=== PATIENT | male | born 1955 | race Caucasian/White ===

== ENCOUNTER → 2023-10-13 | Outpatient (CLI) | payer MEDICARE, OTHER, SELFPAY ==
[2023-10-13 16:56] LABS: Absolute Lymphocyte Count 2.93 X10^3/uL (0.83-4.51); Absolute Neutrophil Count 6.6 X10^3/uL (2.0-7.7); Basophil# 0.06 X10^3/uL; Basophil% 0.6 % (0-1); Eosinophil# 0.21 X10^3/uL; Hematocrit 49.8 % (40-54); Lymphocyte # 2.93 X10^3/ul (0.83-4.51); Lymphocyte % 27.3 % (19-41); Mean Corp Hgb Conc 32.1 g/dL (32-36); Mean Corpuscular Hgb 30.4 pg (27.0-32.0); Mean Corpuscular Volume 94.5 fL (80-94); Mean Platelet Vol. 11.2 fl (6.2-12.0); Monocyte# 0.88 X10^3/uL; Monocyte% 8.2 % (0-10); NRBC Flagged by Analyzer 0 % (0-5); Neutrophil # 6.61 X10^3/uL (2.7-7.7); Neutrophil % 61.5 % (47-70); Platelet Count 303 K/mm3 (150-450); RBC Distribution Width CV 13.2 % (11.6-14.6); Red Blood Count 5.27 M/mm3 (4.6-6.2); White Blood Count 10.7 K/mm3 (4.4-11.0)
[2023-10-13 17:19] LABS: ALB/GLOB Ratio 1.1 RATIO (0.9-2.4); AST(SGOT) 14 U/L (15-37); Alanine Aminotransfer ALT/SGPT 26 U/L (16-61); Albumin, Serum 3.9 g/dL (3.2-5.0); Alkaline Phosphatase 84 U/L (45-117); Anion Gap 3 (5-15); BUN 16 mg/dL (7-18); BUN/Creat Ratio 20.2 RATIO (10-20); Calcium,Total 9.3 mg/dL (8.5-10.1); Chloride 110 mmol/L (98-107); Cholesterol 139 mg/dL (200); Creatinine, Serum 0.79 mg/dL (0.70-1.30); EST Glomerular Filtration Rate 103 mL/min (>60); Est Glom Filt Rate - Afr Amer 125 mL/min (>60); Globulin 3.5 g/dL (2.2-4.2); Glucose 93 mg/dL (74-106); High Density Lipoprotein 52 mg/dL; PSA,Total - Annual Screen 0.75 ng/mL (0.00-4.00); Potassium 4.5 mmol/L (3.5-5.1); Protein, Total 7.4 g/dL (6.4-8.2); Sodium Level 142 mmol/L (136-145); Thyroid Stim Hormone (TSH) 3.39 uIU/mL (0.358-3.74); Triglycerides 138 mg/dL; Very Low Density Lipoprotein 28 mg/dL (5-40)
== END | disposition home or self-care (01) ==
LOC: BIMLAB 15:14
PROVIDERS: PCP Internal Medicine; Referring Provider Internal Medicine; Visit Provider Internal Medicine
DX: E78.2 Mixed hyperlipidemia (principal); I25.10 Atherosclerotic heart disease of native coronary artery without angina pectoris; Z12.5 Encounter for screening for malignant neoplasm of prostate
CPT/HCPCS: 36415; 80053; 80061; 84153; 84443; 85025; G0103

== ENCOUNTER → 2023-10-25 | Outpatient (CLI) | payer MEDICARE, OTHER, SELFPAY ==
--- NOTE | 2023-10-25 08:53 | AAAS_ITS ---
Reason For Study: AAA Screening Aorta Measurements Aorta Doppler Measurements Proximal aorta measures2.07 x 2.12cm. in cross- Peak systolic flow velocities within the proximal sectional axis. aorta measure 104.9 cm/sec. Proximal aorta measures2.12cm. in longitudinal Peak systolic flow velocities within the mid aorta axis. measure 115.8 cm/sec. Mid aorta measures1.73 x 1.73cm. in cross- Peak systolic flow velocities within the distal sectional axis. aorta measure 152.7 cm/sec. Mid aorta measures1.71cm. in longitudinal axis. Distal aorta measures2.08 x 2.08cm. in cross- sectional axis. Distal aorta measures2.08cm. in longitudinal axis. Left Iliac Artery Left iliac artery measures 1.20 x 1.20 cm. in the cross-sectional axis. Left iliac artery measures 1.19 cm. in the longitudinal axis. Peak systolic velocity in the left iliac artery measures 127.1 cm/sec. Right Iliac Artery Right iliac artery measures 0.86 x 0.90 cm. in the cross-sectional axis. Right iliac artery measures 0.89 cm. in the longitudinal axis. Peak systolic velocity in the right iliac artery measures 152.6 cm/sec. Procedure Aorta IVC Iliac vasculature or bypass grafts [id number]. Exam performed in department. VL/AAA Screening Interpretation Summary Aorta patent, normal caliber Bilateral iliac arteries patent, normal caliber Ordering Physician: Aisha Saavedra Referring Physician: Aisha Saavedra Performed By: Cecilia Corral RVT
== END | disposition home or self-care (01) ==
LOC: CVS 08:52
PROVIDERS: PCP Internal Medicine; Referring Provider Internal Medicine; Visit Provider Internal Medicine
DX: Z13.6 Encounter for screening for cardiovascular disorders (principal)
CPT/HCPCS: 76706

== ENCOUNTER → 2023-11-09 | Outpatient (CLI) | payer MEDICARE, OTHER, SELFPAY ==
[2023-11-16 11:09] LABS: Testosterone, % Free 1.94 % (1.50-4.20); Testosterone, Free 12.92 ng/dL (5.00-21.00); Testosterone, Total 666 ng/dL (264-916)
== END | disposition home or self-care (01) ==
LOC: BIMLAB 09:58
PROVIDERS: PCP Internal Medicine; Referring Provider Internal Medicine; Visit Provider Internal Medicine
DX: N52.9 Male erectile dysfunction, unspecified (principal)
CPT/HCPCS: 36415; 84402; 84403

== ENCOUNTER 2023-11-16 08:30 | Outpatient (RCR) | payer MEDICARE, OTHER, SELFPAY ==
--- NOTE | 2023-09-07 12:50 | HP.OTEVAL ---
Patient's Visit Information Visit Information Visit Information: DREA DELUCA is a 67 year old M, referred to Occupational Therapy by Dr. Parag Richards MD, with a diagnosis of central slip tendon injury. Date of Evaluation: 09/07/23 Occupational Therapist: Swati Rice, SONY/Rebeca, CHT Subjective Subjective: This 67 year old male was seen for OT eval with dx of left central slip injury. pt states he had a fall Aug.20 while going up stairs pt states he thought his finger would be fine- went to [facility]. and was rec'd to see Dr. Richards. pt starts he was put is splint and and was told to keep finger straight- pt states he is tolerating splint good. pt states he is left handed just recent move to [place] in Apr. ROM MP: right LF 0/85 PIP: right LF 0/90 DIP: right LF 0/65 ROM Comments: pt states he does everything to keep finger flat- left LF Not tested to keep with recovery guidelines PIP is looking good in splint- but therapist noted DIP hyper-ext. Strength Host And Hostess: right 130# left NT Lateral Pinch: right 20# left NT Tripod Pinch: right 16# left NT Sensation Sensation Comments: denies Quick DASH-Disab of Arm,Shoulder& Hand Quick DASH Score: 4.5450 Goals Goal:100% adherence to protocol: Yes Comment: central slip protocol Goal:Daily scar massage when approriate: Yes Goal:ROM equal to unaffected hand: Yes Goal:Host And Hostess/Pinch strength at least 75% of unaffected hand: Yes Rehabilitation General Assessment: Pt demo with positive central slip tendon involvement: demo need for therapy services to provide skilled services 1x a week for 8 weeks for pt to allow healing of tendon and regain pts functional use of left dominate hand for ADLs and IADL's. Today therapist ed. pt on injury- and POC and the need to keep PIP in full ext. if changing orthosis. pt demo understanding- Therapist noted with pt in gutter splint- the DIP was in hyper-ext- therapist ming. custom orthosis placing styles over DIP for slight flexion to prevent deformity- - pt ed. to allow slight DIP flex . and NO PIP Flexion- pt demo understanding and agree to POC. Rehabilitation Potential: Good Anticipated Interventions Anticipated Interventions: A/AAROM/PROM, Strengthening, Triggerpoint Release, Modalities, Orthoses and Home Program Visit Plan Frequency: Every Other Week Duration: 2 Months General Plan: orthosis for 6 weeks will monitor skin integrity then transition to graded flexion until full flexion at week 8-10 as to not compromise extensor tendon healing. TEXT: Thank you for the opportunity to evaluate your patient. For Medicare and Medicare HMO plans, please review the plan of care and approve it. It will need to be FAXED BACK to us at [phone] for Medicare purposes. Please let me know if there are questions or concerns regarding this plan of care. Physician Signature: Date:
== END 2023-11-16 19:00 | disposition home or self-care (01) ==
LOC: OT 08:30
PROVIDERS: Referring Provider Orthopaedic Surgery Sports Medicine; Visit Provider Orthopaedic Surgery Sports Medicine
DX: S56.41 Strain of extensor muscle, fascia and tendon of other and unspecified finger at forearm level (principal)
CPT/HCPCS: 97110; 97166; 97530

== ENCOUNTER → 2025-01-30 | Outpatient (CLI) | payer MEDICARE, OTHER, SELFPAY ==
[2025-01-30 12:36] LABS: Absolute Lymphocyte Count 2.22 X10^3/uL (0.83-4.51); Absolute Neutrophil Count 4.9 X10^3/uL (2.0-7.7); Basophil# 0.04 X10^3/uL; Basophil% 0.5 % (0-1); Eosinophil# 0.16 X10^3/uL; Hematocrit 47.6 % (40-54); Hemoglobin 15.9 g/dL (13.0-16.5); Lymphocyte # 2.22 X10^3/ul (0.83-4.51); Lymphocyte % 27.1 % (19-41); Mean Corp Hgb Conc 33.4 g/dL (32-36); Mean Corpuscular Hgb 31.5 pg (27.0-32.0); Mean Corpuscular Volume 94.3 fL (80-94); Mean Platelet Vol. 11.3 fl (6.2-12.0); Monocyte# 0.86 X10^3/uL; Monocyte% 10.5 % (0-10); NRBC Flagged by Analyzer 0 % (0-5); Neutrophil # 4.89 X10^3/uL (2.7-7.7); Neutrophil % 59.7 % (47-70); Platelet Count 251 K/mm3 (150-450); RBC Distribution Width SD 44.9 fl (35.1-43.9); Red Blood Count 5.05 M/mm3 (4.6-6.2); White Blood Count 8.2 K/mm3 (4.4-11.0)
[2025-01-30 13:07] LABS: ALB/GLOB Ratio 1.5 RATIO (0.9-2.4); AST(SGOT) 16 U/L (<=37); Alanine Aminotransfer ALT/SGPT 13 U/L (<=46); Albumin, Serum 4.2 g/dL (3.4-4.8); Alkaline Phosphatase 95 U/L (40-129); Anion Gap 9 (5-15); BUN 17 mg/dL (4-19); BUN/Creat Ratio 21.1 RATIO (10-20); Calcium,Total 9.7 mg/dL (7.6-11.0); Carbon Dioxide 23.8 mmol/L (21.0-32.0); Chloride 107 mmol/L (98-108); Cholesterol 133 mg/dL (<=200); Creatinine, Serum 0.81 mg/dL (0.70-1.20); EST Glomerular Filtration Rate 96 (>60); Globulin 2.8 g/dL (2.2-4.2); Glucose 97 mg/dL (70-99); High Density Lipoprotein 48 mg/dL; Low Density Lipoprotein Calc. 67 mg/dL; Potassium 4.5 mmol/L (3.3-5.1); Sodium Level 140 mmol/L (133-145); Total Bilirubin 0.52 mg/dL (0.00-1.30); Triglycerides 91 mg/dL; Very Low Density Lipoprotein 18 mg/dL (5-40); cholesterol:hdl ratio screen 2.79
[2025-01-30 13:40] LABS: PSA,Total- Diagnostic 0.38 ng/mL (0.00-4.00)
== END | disposition home or self-care (01) ==
LOC: BIMLAB 09:59
PROVIDERS: PCP Internal Medicine; Referring Provider Internal Medicine; Visit Provider Internal Medicine
DX: I25.10 Atherosclerotic heart disease of native coronary artery without angina pectoris (principal); F41.9 Anxiety disorder, unspecified; F32.A Depression, unspecified; N40.0 Benign prostatic hyperplasia without lower urinary tract symptoms
CPT/HCPCS: 36415; 80053; 80061; 84153; 85025

== ENCOUNTER → 2025-02-21 | Outpatient (CLI) | payer MEDICARE, OTHER, SELFPAY ==
--- NOTE | 2025-02-21 12:50 | MRI_ITS ---
PROCEDURE: BRAIN W/WO CONTRAST 02/21/2025 REASON FOR EXAM: PULSATILE TINNITUS TECHNIQUE: Brain examination performed without and with contrast with attention to the internal auditory canals.. CONTRAST: Clariscan VOLUME: 17 mL FINDINGS: There is a normal appearance to the craniocervical junction without Chiari deformity. There is no hydrocephalus or acute diffusion restriction. Brainstem and cerebellum unremarkable. No pathologic flow voids. No extra- axial fluid collections. There is no intracranial demyelination. Coronal T2 weighted images demonstrate no visible hippocampal asymmetry. Myelination is appropriate for age. Thin-section volumetric images of the skull base demonstrate symmetric fluid signal within the vestibule and cochlea. There is no evidence of labyrinthine hemorrhage. No dural sinus thrombosis. Thin-section postcontrast images through the internal auditory canals demonstrate no abnormal skull base enhancement. On postcontrast images of the brain, no definitive transverse sinus stenosis is seen. No abnormal labyrinthine, cisternal or intra canalicular enhancement. MRI/Brain W/WO Contrast IMPRESSION: No etiology for tinnitus. Reading Location: [facility]
== END | disposition home or self-care (01) ==
LOC: OPMRI 12:26
PROVIDERS: PCP Internal Medicine; Referring Provider Internal Medicine; Visit Provider Internal Medicine
DX: H93.A9 Pulsatile tinnitus, unspecified ear (principal)
CPT/HCPCS: 70553; A9575

== ENCOUNTER 2025-03-09 05:58 | Emergency (ER) | payer MEDICARE, OTHER, SELFPAY ==
[2025-03-09 05:59] VITALS: BP 132/87; PULSE 76; RESP 14; TEMP 36.4; O2SAT 99; BMI 25.2
--- NOTE | 2025-03-09 06:06 | EX.ED.DYSGE1 ---
HPI History of Present Illness Chief Complaint: Palpitations Informant: patient Narrative Narrative: Patient is a 69-year-old male with past medical history of hyperlipidemia and coronary artery disease requiring stent placement 12 years ago. He states that over the past few weeks he would have bouts of palpitations which she describes as irregular and fast. He also states that he has had a few episodes where he sweats profusely and has bouts of nausea and vomiting. He reports the most recent bout of diaphoresis and nausea and vomiting was roughly 1 week ago after mowing the yard. He states there was no chest pain associated with it but the symptoms concerned him for cardiovascular disease. He states he has an appointment set up with the private branch exchange service advisor Dr. Arceo next week. He states however that 4 times throughout the night starting from approximately 9 or 10 PM with the last 1 being around 5 AM his watch went off alerting him to palpitations concerning for A-fib. He states that it did feel fast and irregular but it only lasted for a few minutes and resolved. He denies any history of excessive stimulant use or illicit drug use. He states as his symptoms have been recurrent throughout the night he presents for evaluation [facility] Medical History Mixed hyperlipidemia Hx of myocardial infarction Atherosclerosis of coronary artery of [place] heart without angina pectoris Skin cancer Heart disease Hearing problem Bone fracture Home Medications Medication Instructions Recorded Last Taken Type aspirin 81 mg tablet,delayed 81 mg PO DAILY 08/31/23 Unknown History release nitroglycerin 0.3 mg sublingual 0.3 mg sublingual Q5M PRN chest 05/28/24 Unknown Rx tablet pain #30 tabs atorvastatin 40 mg tablet 40 mg PO DAILY #90 tabs 08/23/24 Unknown Rx tamsulosin 0.4 mg capsule (Flomax) 0.4 mg PO QHS #30 caps 01/30/25 Unknown Rx tadalafil 5 mg tablet (Cialis) 5 mg PO DAILY #90 tabs 02/11/25 Unknown Rx carvedilol 6.25 mg tablet 6.25 mg PO BID #180 tabs 03/05/25 Unknown Rx azithromycin 250 mg tablet See Rx Instructions PO .COMPLEX #6 03/09/25 Unknown Rx (Zithromax Z-Farzad) tabs cefdinir 300 mg capsule 300 mg PO BID 7 days #14 caps 03/09/25 Unknown Rx Allergy/AdvReac Type Severity Reaction Status Date / Time naproxen (From Aleve) AdvReac palpitation Verified 03/09/25 05:59 s Family History (Updated 02/25/25 @ 10:50 by Angeles Martinez RN) Father Cancer, Onset Age: 80 leukemia Hypertension Aunt CAD (coronary artery disease) Uncle CAD (coronary artery disease) Sister Hypertension Surgical History History of banding of hemorrhoid History of ankle surgery H/O rhinoplasty H/O heart artery stent Social History (Updated 01/30/25 @ 09:[address] Aisha Saavedra MD) household members: significant other housing: house current occupational status: retired current occupation: worked in [email or web address] Smoking Status: Former smoker quit date: 08/15/15 pack-years: 40 Electronic Cigarette Use: not used alcohol intake: current alcohol intake frequency: a few times a month Alcohol type: hard liquor substance use type: marijuana what type of physical activity do you participate in: walking seatbelt use: always do you feel safe at home: Yes ROS ROS ED Constitutional Constitutional ED: Reports sweats; Denies chills or fever(s) Eyes Eyes: Denies change in vision ENT ENT ED: Denies sore throat Cardiovascular Cardiovascular: Reports palpitations and racing heartbeat; Denies chest pain Respiratory/Chest Respiratory/Chest: Denies cough or dyspnea Gastrointestinal Gastrointestinal: Reports nausea and vomiting; Denies abdominal pain or diarrhea Musculoskeletal Musculoskeletal: Denies back pain Integumentary Denies rash Neurologic Neurologic: Denies headache(s) Psychiatric Psychiatric: Reports anxiety Hematologic/Lymphatic Hematologic/Lymphatic: Denies easy bleeding or easy bruising EXAM Physical Exam Const Vital Signs: 03/09/25 05:59 03/09/25 06:01 03/09/25 07:00 Temperature 97.5 F L Temperature Source Oral Pulse Rate 76 68 Respiratory Rate 14 18 Respiratory Effort Normal Non-Labored Respiratory Pattern Normal Blood Pressure 132/87 H 126/87 H Blood Pressure Mean 102 100 Pulse Ox 99 98 Oxygen Delivery Method Room Air Room Air Positive well nourished and well developed General Appearance ED: well developed; Negative for pallor HEENT HEENT Narrative: Normocephalic atraumatic Eyes PERRL and EOMs intact bilaterally General Eye ED: Negative for scleral icterus Neck supple and no JVD Chest Wall palpation of chest normal Chest Narrative: No bony deformity or subcutaneous emphysema noted Resp normal respiratory effort and clear to auscultation bilaterally Cardio regular rate and regular rhythm Rate: other Other Details: Heart is regular rate and rhythm Radial and carotid pulses are equal and symmetric GI normal to inspection, nondistended, normoactive bowel sounds, non-tender, non-distended and no masses GI Narrative: No voluntary guarding rigidity or pulsatile mass Auscultation: normoactive bowel sounds Palpation: soft Extremity normal to inspection Extremity Narrative: No asymmetric edema no pitting edema negative Homans' sign bilaterally Neuro oriented x3, CN's II-XII intact bilaterally and no sensory deficits noted Sensorium / Orientation: alert Motor Exam: strength 5/5 throughout Psych mental status grossly normal Skin no rashes or lesions noted General Skin Exam: Negative for jaundice or pallor MDM MDM MDM Narrative Medical decision making narrative: Patient arrived to the ER with stable vitals and resolution of his palpitations. He reported that his watch alerted him to the fact he was in atrial fibrillation but states he has no formal diagnosis or known history. He does have known CAD and with his report of recent diaphoresis and bouts of nausea and vomiting after physical activity and mowing the yard there was concern that he may have had a recent [place] as well. Secondary to this an EKG was obtained which revealed no obvious signs of ischemia or dysrhythmia. A chest x-ray was obtained to rule out lung pathology such as a mass causing his symptoms. Basic blood work was also ordered to check for acute blood loss anemia acute kidney injury or electrolyte abnormality. The patient's troponin is 16 which is within normal range and under the 22 value listed in the cardiac algorithm for the 0-hour level. As the patient's symptoms of severe diaphoresis and vomiting roughly 1 week ago and the initial troponin is normal I do not feel the need for a second especially as he has no chest pain at this time. Blood work did show a leukocytosis with left shift and he also has elevation to his hemoglobin and hematocrit. There is concern this could be contraction secondary dehydration and therefore he was given 1 L of IV fluid. Despite these changes there are no clinically significant electrolyte abnormality or signs of acute kidney injury. The patient's D-dimer is also normal going against pulmonary embolus or dissection as a cause of his palpitations. Patient's chest x-ray showed changes concerning for developing pneumonia which could be the cause of his recent bouts of shortness of breath and/or palpitation. However he does not have respiratory distress or hypoxia or need for supplemental oxygen and he does not show findings concerning for sepsis. Therefore there is no need for admission to treat this. He will be placed on oral antibiotics. He understands that he still needs to follow-up with cardiology and have a potential Holter monitor study to further evaluate him for atrial fibrillation. However at this time as he is hemodynamically stable with cardiac workup showing no sign of ACS or acute dysrhythmia he is otherwise safe for discharge home History & Record Review Discussion w/independent historian: Patient Lab Data Attestation: I reviewed the patient's lab results. Labs: Laboratory Results - last 24 hr 03/09/25 06:06 WBC 13.8 H RBC 5.76 Hgb 18.5 H* Hct 54.2 H MCV 94.1 H MCH 32.1 H MCHC 34.1 RDW Std Deviation 44.2 H RDW Coeff of Emil 12.9 Plt Count 276 MPV 10.9 Immature Gran % (Auto) 0.400 Neut % (Auto) 70.7 H Lymph % (Auto) 20.0 Titus % (Auto) 8.1 Eos % (Auto) 0.4 Baso % (Auto) 0.4 Absolute Neuts (auto) 9.8 H Absolute Lymphs (auto) 2.76 Nucleated RBC % 0 D-Dimer Quant (PE/DVT) 0.34 Sodium 137 Potassium 4.0 Chloride 103 Carbon Dioxide 21.6 Anion Gap 13 BUN 10 Creatinine 0.84 Estim Creat Clear Calc 91.10 Est GFR (MDRD) Non-Af 95 BUN/Creatinine Ratio 11.4 Glucose 130 H Calcium 9.4 Magnesium 2.3 H Troponin T High Sens 16 TSH 2.680 Radiography Diagnostic Testing: Clinical Impression(s) from Imaging Studies Chest X-Ray 03/09/25 06:35 IMPRESSION: Interstitial densities in the lower lungs concerning for pulmonary edema or pneumonia. No pleural effusion or pneumothorax. Reading Location: [facility] 2 view chest x-ray is interpreted by the emergency medicine physician reveals haziness in the bilateral lobes concerning for developing infection Discharge Plan Triage Chief Complaint: Palpitations ED Provider: Rich Robbins Dx/Rx/DC Orders Clinical Impression: Palpitations, Pneumonia, CAD (coronary artery disease), Hyperlipemia Instructions: ED Palpitations, ED Pneumonia (Adult) Prescriptions: New azithromycin [Zithromax Z-Farzad] 250 mg tablet See Rx Instructions .ROUTE .COMPLEX Qty: 6 0RF Rx Instructions: For 250 mg dose pack: take 500 mg today (day 1), then 250 mg for 4 days (days 2-5) cefdinir 300 mg capsule 300 mg PO BID 7 Days Qty: 14 0RF No Action aspirin 81 mg tablet,delayed release (DR/EC) 81 mg PO DAILY tamsulosin [Flomax] 0.4 mg capsule 0.4 mg PO QHS Qty: 30 1RF nitroglycerin 0.3 mg tablet, sublingual 0.3 mg sublingual Q5M PRN (Reason: chest pain) Qty: 30 0RF Rx Instructions: do not exceed 3 doses per episode atorvastatin 40 mg tablet 40 mg PO DAILY Qty: 90 1RF tadalafil [Cialis] 5 mg tablet 5 mg PO DAILY Qty: 90 1RF carvedilol 6.25 mg tablet 6.25 mg PO BID Qty: 180 1RF Rx Instructions: must administer with a meal/food Primary Care Provider: Aisha Saavedra Referrals: Aisha Saavedra MD [Primary Care Provider] - Sanjay Arceo MD [Med Staff - Active Staff] - Activity Restrictions/Additional Instructions: Please take the antibiotics as directed to help resolve the infection/pneumonia that was seen on your x-ray. Still follow-up with cardiology as you may need a Holter monitor to truly diagnose abnormal heart rhythms such as atrial fibrillation. Return to the ER should you have any further concerns or worsening of symptoms. Print Language: Portuguese Disposition Disposition: Home, Self Care
--- NOTE | 2025-03-09 06:35 | RAD_ITS ---
PROCEDURE: CHEST PA AND LATERAL 03/09/2025 REASON FOR EXAM: PALPITATIONS TECHNIQUE: CHEST PA AND LATERAL COMPARISON: None. FINDINGS: Hardware: Monitor electrodes overlie the chest. Heart: No cardiomegaly. Mediastinum: Unremarkable. Lungs: Interstitial densities in the lower lungs concerning for pulmonary edema or pneumonia. No pleural effusion or pneumothorax. Bones: No acute bony abnormalities. RAD/Chest PA and Lateral IMPRESSION: Interstitial densities in the lower lungs concerning for pulmonary edema or pne umonia. No pleural effusion or pneumothorax. Reading Location: [id number]
[2025-03-09 06:36] LABS: Hematocrit 54.2 % (40-54); Immature Granulocytes Count 0.050 X10^3/uL (0.0-0.0); Mean Corp Hgb Conc 34.1 g/dL (32-36); Mean Corpuscular Volume 94.1 fL (80-94); Mean Platelet Vol. 10.9 fl (6.2-12.0); NRBC Flagged by Analyzer 0 % (0-5); Platelet Count 276 K/mm3 (150-450); RBC Distribution Width CV 12.9 % (11.6-14.6); RBC Distribution Width SD 44.2 fl (35.1-43.9); Red Blood Count 5.76 M/mm3 (4.6-6.2); White Blood Count 13.8 K/mm3 (4.4-11.0)
--- OUTSIDE RECORDS SUMMARY | 2025-03-09 06:37 | XMS RPT_ITS | CCD ---
Author Organization [facility] CliniSyne Care Team Providers Care Aquatic Scientist Name Role Phone JOSE Montaño Attending Provider Dr. Sanjay Arceo Attending Provider [phone] MD Parag Richards Attending Provider [phone] Dr. Aisha Saavedra Attending Provider [phone] JOSE Montaño Attending Provider Dr. Sanjay Arceo Attending Provider [phone] MD Parag Richards Attending Provider [phone] Dr. Aisha Saavedra Attending Provider [phone] Dr. Aisha Saavedra Primary Care Provider Dr. Ryan Paul Attending Provider [phone] Cristopher Wylie MD Unavailable CRISTOPHER WYLIE Attending Unavailable Dr. Aisha Saavedra MD Primary Care Provider [phone] Dr. Aisha Saavedra MD Attending Provider Dr. Aisha Saavedra MD Referring Provider Quentin Aisha Referring Unavailable Quentin, Aisha Attending Unavailable Quentin, Aisha Primary Care Unavailable [place], Aisha Referring Unavailable [place], Aisha Attending Unavailable Quentin, Aisha Primary Care Unavailable Quentin, Aisha Referring Unavailable [place], Aisha Attending Unavailable [place], Aisha Primary Care Unavailable Quentin, Aisha Referring Unavailable [place], Aisha Attending Unavailable Quentin Aisha Primary Care Unavailable Allergies Allergy Classification Reported Allergen(s) Allergy Type Date of Onset Reaction(s) Facility (3 sources) Naproxen Drug Allergy 01-30-2025 palpitations [facility] (1 source) Naproxen Drug Allergy 01-30-2025 [facility] Repository Medications Current Medications Medication Drug Class(es) Dates Sig (Normalized) Sig (Original) aspirin 81 mg delayed release oral tablet (8 sources) Platelet Aggregation Inhibitor, Nonsteroidal Anti-inflammatory Drug Start: 08-31-2023 take 1 tablet by mouth once daily Aspirin 81 mg tablet,delayed release (DR/EC) Active 81 mg PO DAILY August 31, 2023 1:00am nitroglycerin 0.3 mg sublingual tablet (3 sources) Nitrate Vasodilator Start: 05-28-2024 Nitroglycerin 0.3 mg tablet, sublingual Active 0.3 mg SL Q5M as needed for chest pain May 28, 2024 12:00am do not exceed 3 doses per episode tadalafil 5 mg oral tablet (16 sources) Phosphodiesterase 5 Inhibitor Start: 11-08-2023 End: 02-11-2025 take 1 tablet by mouth once daily Tadalafil (Cialis) 5 mg tablet Active 5 mg PO DAILY 90 February 11, 2025 10:14am tamsulosin hydrochloride 0.4 mg oral capsule (3 sources) alpha-Adrenergic Alanis Start: 01-30-2025 take 1 capsule by mouth at bedtime Tamsulosin (Flomax) 0.4 mg capsule Active 0.4 mg PO AT BEDTIME 30 January 30, 2025 12:00am Completed/Discontinued Medications Medication Drug Class(es) Dates Sig (Normalized) Sig (Original) atorvastatin 40 mg oral tablet (20 sources) HMG-CoA Reductase Inhibitor Start: 08-31-2023 End: 08-23-2024 take 1 tablet by mouth once daily Atorvastatin 40 mg tablet Discontinued 40 mg PO DAILY 90 March 05, 2024 8:11am August 23, 2024 5:05pm 24 hr buPROPion hydrochloride 150 mg extended release oral tablet (8 sources) Aminoketone Start: 12-28-2023 End: 08-01-2024 take 1 tablet by mouth once daily in the morning Bupropion Hcl (Wellbutrin Xl) 150 mg tablet extended release 24 hr Discontinued 150 mg PO EVERY MORNING 90 February 08, 2024 11:08am August 01, 2024 10:53am carvedilol 6.25 mg oral tablet (17 sources) alpha-Adrenergic Alanis, beta-Adrenergic Alanis Start: 08-31-2023 End: 09-18-2024 take 1 tablet by mouth twice daily at mealtime Carvedilol 6.25 mg tablet Discontinued 6.25 mg PO TWICE A DAY 180 1 March 05, 2024 8:12am September 18, 2024 1:18pm must administer with a meal/food clobetasol propionate 0.5 mg/ml medicated shampoo (6 sources) Corticosteroid Start: 09-20-2024 End: 09-27-2024 Clobetasol (Clobex) 0.05 % shampoo Discontinued 1 NMA TOPICAL daily 118 7 0 September 20, 2024 6:40pm September 26, 2024 1:00am September 27, 2024 1:11am Start: 08-02-2024 End: 08-09-2024 Clobetasol (Clobex) 0.05 % s hampoo Discontinued 1 NMA TOPICAL daily 118 7 0 August 02, 2024 1:00am August 08, 2024 1:00am August 09, 2024 1:09am sildenafil 25 mg oral tablet (6 sources) Phosphodiesterase 5 Inhibitor Start: 10-13-2023 End: 11-08-2023 Sildenafil (Viagra) 25 mg tablet Discontinued 25 mg PO DAILY as needed for sexual activity 30 0 October 13, 2023 1:00am November 08, 2023 3:06pm administer 30 minutes to 4 hours before activity Problems Problem Classification Problem Date Documented Date Episodic/Chronic Abdominal hernia (4 sources) Unilateral inguinal hernia, without obstruction or gangrene, not specified as recurrent; Translations: [Inguinal hernia, without mention of obstruction or gangrene, unilateral or unspecified (not specified as recurrent)] 10-13-2023 Episodic Administrative/social admission (3 sources) Persons encountering health services in other specified circumstances; Translations: [Other reasons for seeking consultation] 10-13-2023 Episodic Anxiety disorders (4 sources) Mixed anxiety and depressive disorder; Translations: [Anxiety disorder, unspecified] Onset: 01-30-2025 01-30-2025 Chronic Coronary atherosclerosis and other heart disease (10 sources) Atherosclerotic heart disease of [place] coronary artery without angina pectoris; Translations: [Coronary atherosclerosis of unspecified type of vessel, [place] or graft] Onset: 02-06-2025 10-13-2023 Chronic Disorders of lipid metabolism (7 sources) Mixed hyperlipidemia; Translations: [Mixed hyperlipidemia] 10-13-2023 Chronic Hyperplasia of prostate (3 sources) Benign prostatic hyperplasia; Translations: [Benign prostatic hyperplasia without lower urinary tract symptoms] Onset: 01-30-2025 01-30-2025 Chronic Immunizations and screening for infectious disease (5 sources) Encounter for immunization; Translations: [Need for prophylactic vaccination and inoculation against unspecified single disease] 10-13-2023 Episodic Miscellaneous mental health disorders (2 sources) 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; 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-01-2024 Chronic Mood disorders (1 source) Mood disorders; Translations: [Depression, unspecified] Onset: 01-30-2025 Other and ill-defined heart disease (1 source) Heart disease; Translations: [Heart disease, unspecified] 02-25-2025 Chronic Other circulatory disease (3 sources) Elevated blood pressure; Translations: [Elevated blood-pressure reading, without diagnosis of hypertension] 01-30-2025 Episodic Other ear and sense organ disorders (1 source) Unspecified hearing loss, unspecified ear; Translations: [Unspecified hearing loss, unspecified ear] Onset: 08-01-2024 Chronic Other ear and sense organ disorders (3 sources) Tinnitus of vascular origin; Translations: [Pulsatile tinnitus, unspecified ear] 01-30-2025 Episodic Other ear and sense organ disorders (1 source) Pulsatile tinnitus, unspecified ear; Translations: [Pulsatile tinnitus, unspecified ear] Onset: 02-28-2025 Episodic Other male genital disorders (5 sources) Male erectile dysfunction, unspecified; Translations: [Impotence of organic origin] Onset: 02-01-2024 10-13-2023 Chronic Other male genital disorders (2 sources) Secondary erectile dysfunction; Translations: [Male erectile dysfunction, unspecified] 02-01-2024 Chronic Other male genital disorders (3 sources) Disorder of ejaculation 01-30-2025 Episodic Other screening for suspected conditions (not mental disorders or infectious disease) (3 sources) Encounter for screening for cardiovascular disorders; Translations: [Screening for other and unspecified cardiovascular conditions] 10-13-2023 Episodic Other skin disorders (3 sources) Unspecified skin changes; Translations: [Other symptoms involving skin and integumentary tissues] 10-13-2023 Episodic Sprains and strains (15 sources) Rupture of extensor tendon of finger; Translations: [Strain of extensor muscle, fascia and tendon of finger, unspecified finger at forearm level, initial encounter] 10-13-2023 Episodic Unclassified (3 sources) I25.10 - Atherosclerotic heart disease of [place] coronary artery without angina pectoris Results Test Name Value Interpretation Reference Range Facility Magnetic resonance imaging r eportOrdered By: James Nj on 02-23-2025 Study report [facility] Imaging Services [address] [place] [address] Brain W/WO Contrast MR#: [id number] Acct: [id number] Name: DREA MAX Rep #: [id number] : 1955 M 69 From: Lynn Nj MD PCP: Dr. Aisha Saavedra MD Status: REG CLI Study:Brain W/WO Contrast Date of Exam: 02/21/25 Exam# [id number] Ordering Dr: Aisha Saavedra MD PROCEDURE: BRAIN W/WO CONTRAST 02/21/2025 REASON FOR EXAM: PULSATILE TINNITUS TECHNIQUE: Brain examination performed without and with contrast with attention to the internal auditory canals.. CONTRAST: Clariscan VOLUME: 17 mL FINDINGS: There is a normal appearance to the craniocervical junction without Chiari deformity. There is no hydrocephalus or acute diffusion restriction. Brainstem and cerebellum unremarkable. No pathologic flow voids. No extra-axial fluid collections. There is no intracranial demyelination. Coronal T2 weighted images demonstrate no visible hippocampal asymmetry. Myelination is appropriate for age. Thin-section volumetric images of the skull base demonstrate symmetric fluid signal within the vestibule and cochlea. There is no evidence of labyrinthine hemorrhage. No dural sinus thrombosis. Thin-section postcontrast images through the internal auditory canals demonstrate no abnormal skull base enhancement. On postcontrast images of the brain, no definitive transversesinus stenosis is seen. No abnormal labyrinthine, cisternal or intra canalicular enhancement. MRI/Brain W/WO Contrast IMPRESSION: No etiology for tinnitus. Reading Location: [facility] CC: Dr. Aisha Saavedra MD ~ Cotton Classer: Signed [facility] Brain W/WO Contraston 2024 Brain W/WO Contrast [facility] Imaging Services [address] [place] [address] Brain W/WO Contrast MR#: [id number] Acct: [id number] Name: DREA MAX Rep #: [id number] : 1955 M 69 From: James Nj MD PCP: Dr. Aisha Saavedra MD Status: REG CLI Study: Brain W/WO Contrast Date of Exam: 02/21/25 Exam# [id number] Ordering Dr: Aisha Saavedra MD PROCEDURE: BRAIN W/WO CONTRAST 02/21/2025 REASON FOR EXAM: PULSATILE TINNITUS TECHNIQUE: Brain examination performed without and with contrast with attention to the internal auditory canals.. CONTRAST: Clariscan VOLUME: 17 mL FINDINGS: There is a normal appearance to the craniocervical junction without Chiari deformity. There is no hydrocephalus or acute diffusion restriction. Brainstem and cerebellum unremarkable. No pathologic flow voids. No extra-axial fluid collections. There is no intracranial demyelination. Coronal T2 weighted images demonstrate no visible hippocampal asymmetry. Myelination is appropriate for age. Thin-section volumetric images of the skull base demonstrate symmetric fluid signal within the vestibule and cochlea. There is no evidence of labyrinthine hemorrhage. No dural sinus thrombosis. Thin-section postcontrast images through the internal auditory canals demonstrate no abnormal skull base enhancement. On postcontrast images of the brain, no definitive transverse sinus stenosis is seen. No abnormal labyrinthine, cisternal or intra canalicular enhancement. MRI/Brain W/WO Contrast IMPRESSION: No etiology for tinnitus. Reading Location: [facility] CC: Dr. Aisha Saavedra MD Cotton Classer: Signed Normal [facility] Absolute lymphocyte countOrd ered By: Aisha Saavedra on 01-30-2025 Lymphocytes Auto (Unsp spec) [#/Vol] 2.22 10*3/uL 0.83-4.51 [facility] Absolute neutrophil countOrd ered By: Aisha Saavedra on 01-30-2025 Neutrophils (Bld) [#/Vol] 4.9 10*3/uL 2.0-7.7 [facility] Anion gap in Serum or Plasma Ordered By: Aisha Saavedra on 01-30-2025 Anion gap [Moles/Vol] 9 mmol/L 5-15 [facility] Automated lymphocyte count a s percentage of total leukocytesOrdered By: Aisha Saavedra on 01-30-2025 Lymphocytes/100 WBC Auto (Unsp spec) 27.1 % -41 [facility] BUN/creatinine ratioOrdered By: Aisha Saavedra on 01-30-2025 Urea nitrogen/Creatinine [Mass ratio] 21.1 mg/mg High 10-20 [facility] Basophil percentageOrdered B y: Aisha Saavedra on 01-30-2025 Basophils/100 WBC (Bld) 0.5 % 0-1 [facility] Bilirubin, totalOrdered By: Aisha Saavedra on 01-30-2025 Bilirubin [Mass/Vol] 0.52 mg/dL 0.00-1.30 [facility] CBC W/Diff, Automatedon 01-13 Absolute Lymph 2.22 X10 3/uL Normal 0.83-4.51 [facility] Comment on above: Performed By: #### L 500.4050, L500.4100, L100.0100, L501.9940 #### [facility] Laboratory [address] [place], [address] Absolute Neut 4.9 X10 3/uL Normal 2.0-7.7 [facility] Comment on above: Performed By: #### L 500.4050, L500.4100, L100.0100, L501.9940 #### [facility] [address] [place], [address] Basophils/100 WBC (Bld) 0.5 % Normal 0-1 [facility] Comment on above: Performed By: #### L 500.4050, L500.4100, L100.0100, L501.9940 #### [facility] [address], [address] Eosinophils/100 WBC (Bld) 2.0 % Normal 0-5 [facility] Comment on above: Performed By: #### L 500.4050, L500.4100, L100.0100, L501.9940 #### [facility] [address] [place], [address] Erythrocyte distribution width (RBC) [Ratio] 13.0 % Normal 11.6-14.6 [facility] Comment on above: Performed By: #### L 500.4050, L500.4100, L100.0100, L501.9940 #### [facility] [address], [address] Hematocrit (Bld) [Volume fraction] 47.6 % Normal 40-54 [facility] Comment on above: Performed By: #### L 500.4050, L500.4100, L100.0100, L501.9940 #### [facility] [address] [place], [address] Hemoglobin (Bld) [Mass/Vol] 15.9 g/dL Normal 13.0-16.5 [facility] Comment on above: Performed By: #### L 500.4050, L500.4100, L100.0100, L501.9940 #### [facility] [address] [place], [address] IG% 0.200 Normal 0.0-0.9 [facility] Comment on above: Result Comment: IG% - Immature Granulocytes (promyelocytes, myelocytes and metamyelocytes) > 1% indicates that a LEFT SHIFT is Present. Performed By: #### L 500.4050, L500.4100, L100.0100, L501.9940 #### [facility] [address] [place], [address] Lymphocytes/100 WBC (Bld) 27.1 % Normal 19-41 [facility] Comment on above: Performed By: #### L 500.4050, L500.4100, L100.0100, L501.9940 #### [facility] [address] [place], [address] MCH (RBC) [Entitic mass] 31.5 pg Normal 27.0-32.0 [facility] Comment on above: Performed By: #### L 500.4050, L500.4100, L100.0100, L501.9940 #### [facility] [address] [place], [address] MCHC (RBC) [Mass/Vol] 33.4 g/dL Normal 32-36 [facility] Comment on above: Performed By: #### L 500.4050, L500.4100, L100.0100, L501.9940 #### [facility] [address] [place], [address] MCV (RBC) [Entitic vol] 94.3 fL High 80-94 [facility] Comment on above: Performed By: #### L 500.4050, L500.4100, L100.0100, L501.9940 #### [facility] [address] [place], [address] Monocytes/100 WBC (Bld) 10.5 % High 0-10 [facility] Comment on above: Performed By: #### L 500.4050, L500.4100, L100.0100, L501.9940 #### [facility] [address] [place], [address] Neutrophils/100 WBC (Bld) 59.7 % Normal 47-70 [facility] Comment on above: Performed By: #### L 500.4050, L500.4100, L100.0100, L501.9940 #### [facility] [address] [place], [address] Nucleated RBC (Bld) [#/Vol] 0 10*3/uL Normal 0-5 [facility] Comment on above: Performed By: #### L 500.4050, L500.4100, L100.0100, L501.9940 #### [facility] [address] [place], [address] Platelet mean volume (Bld) [Entitic vol] 11.3 fL Normal 6.2-12.0 [facility] Comment on above: Performed By: #### L 500.4050, L500.4100, L100.0100, L501.9940 #### [facility] [address] [place], [address] Platelets (Bld) [#/Vol] 251 10*3/uL Normal 150-450 [facility] Comment on above: Performed By: #### L 500.4050, L500.4100, L100.0100, L501.9940 #### [facility] [address] [place], [address] RBC (Bld) [#/Vol] 5.05 10*6/uL Normal 4.6-6.2 [facility] Comment on above: Performed By: #### L 500.4050, L500.4100, L100.0100, L501.9940 #### [facility] [address] [place], [address] RDW SD 44.9 fl High 35.1-43.9 [facility] Comment on above: Performed By: #### L 500.4050, L500.4100, L100.0100, L501.9940 #### [facility] [address] [place], [address] WBC (Bld) [#/Vol] 8.2 10*3/uL Normal 4.4-11.0 [facility] Comment on above: Performed By: #### L 500.4050, L500.4100, L100.0100, L501.9940 #### [facility] [address] [place], [address] Calculated very low density lipoprotein (VLDL) cholesterol measurementOrdered By: Aisha [place] on 01-30-2025 Calculated very low density lipoprotein (VLDL) cholesterol measurement 18 mg/dL 5-40 [facility] Carbon dioxide, total [Moles /volume] in Central venous bloodOrdered By: Aisha [place] on 01-30-2025 CO2 [Moles/Vol] 23.8 mmol/L 21.0-32.0 [facility] Chloride assayOrdered By: Al ycia Quentin on 01-30-2025 Chloride [Moles/Vol] 107 mmol/L 98-108 [facility] Comprehensive Metabolic Prof ilon 01-30-2025 Albumin [Mass/Vol] 4.2 g/dL Normal 3.4-4.8 [facility] Comment on above: Performed By: #### L 500.4050, L500.4100, L100.0100, L501.9940 #### [facility] [address] [place], [address] Albumin/Globulin [Mass ratio] 1.5 {ratio} Normal 0.9-2.4 [facility] Comment on above: Performed By: #### L 500.4050, L500.4100, L100.0100, L501.9940 #### [facility] [address] [place], [address] ALK PHOS 95 U/L Normal 40-129 [facility] Comment on above: Performed By: #### L 500.4050, L500.4100, L100.0100, L501.9940 #### [facility] [address] [place], [address] ALT [Catalytic activity/Vol] 13 U/L Normal <=46 [facility] Comment on above: Performed By: #### L 500.4050, L500.4100, L100.0100, L501.9940 #### [facility] [address] [place], [address] AST [Catalytic activity/Vol] 16 U/L Normal <=37 [facility] Comment on above: Performed By: #### L 500.4050, L500.4100, L100.0100, L501.9940 #### [facility] [address] [place], [address] Bilirubin [Mass/Vol] 0.52 mg/dL Normal 0.00-1.30 [facility] Comment on above: Performed By: #### L 500.4050, L500.4100, L100.0100, L501.9940 #### [facility] [address] [place], [address] BUN/CRE 21.1 RATIO High 10-20 [facility] Comment on above: Performed By: #### L 500.4050, L500.4100, L100.0100, L501.9940 #### [facility] [address] [place], [address] Calcium [Mass/Vol] 9.7 mg/dL Normal 7.6-11.0 [facility] Comment on above: Performed By: #### L 500.4050, L500.4100, L100.0100, L501.9940 #### [facility] [address] [place], [address] Chloride [Moles/Vol] 107 mmol/L Normal 98-108 [facility] Comment on above: Performed By: #### L 500.4050, L500.4100, L100.0100, L501.9940 #### [facility] [address] [place], [address] CO2 [Moles/Vol] 23.8 mmol/L Normal 21.0-32.0 [facility] Comment on above: Performed By: #### L 500.4050, L500.4100, L100.0100, L501.9940 #### [facility] [address] [place], [address] Creatinine [Mass/Vol] 0.81 mg/dL Normal 0.70-1.20 [facility] Comment on above: Performed By: #### L 500.4050, L500.4100, L100.0100, L501.9940 #### [facility] [address] [place], [address] GAP 9 Normal 5-15 [facility] Comment on above: Performed By: #### L 500.4050, L500.4100, L100.0100, L501.9940 #### [facility] [address] [place], [address] GFR/1.73 sq M.predicted among non-blacks MDRD (S/P/Bld) [Vol rate/Area] 96 mL/min/{1.73_m2} Normal >60 [facility] Comment on above: Result Comment: mL/m in/1.73m2 CKD-EPI Creatinine Equation (2020) Performed By: #### L 500.4050, L500.4100, L100.0100, L501.9940 #### [facility] [address] [place], [address] Globulin (S) [Mass/Vol] 2.8 g/dL Normal 2.2-4.2 [facility] Comment on above: Performed By: #### L 500.4050, L500.4100, L100.0100, L501.9940 #### [facility] [address] [place], [address] Glucose [Mass/Vol] 97 mg/dL Normal 70-99 [facility] Comment on above: Performed By: #### L 500.4050, L500.4100, L100.0100, L501.9940 #### [facility] [address] [place], [address] Potassium [Moles/Vol] 4.5 mmol/L Normal 3.3-5.1 [facility] Comment on above: Performed By: #### L 500.4050, L500.4100, L100.0100, L501.9940 #### [facility] [address] [place], [address] Sodium [Moles/Vol] 140 mmol/L Normal 133-145 [facility] Comment on above: Performed By: #### L 500.4050, L500.4100, L100.0100, L501.9940 #### [facility] [address] [place], [address] T PROT 7.0 g/dL Normal 5.9-8.4 [facility] Comment on above: Performed By: #### L 500.4050, L500.4100, L100.0100, L501.9940 #### [facility] [address] [place], [address] Urea nitrogen [Mass/Vol] 17 mg/dL Normal 4-19 [facility] Comment on above: Performed By: #### L 500.4050, L500.4100, L100.0100, L501.9940 #### [facility] [address] [place], [address] Eosinophil percentageOrdered By: Aisha Saavedra on 01-30-2025 Eosinophils/100 WBC (Bld) 2.0 % 0-5 [facility] Erythrocyte distribution wid th ratioOrdered By: Aisha Saavedra on 01-30-2025 Erythrocyte distribution width (RBC) [Ratio] 13.0 % 11.6-14.6 [facility] Erythrocyte distribution wid th standard deviationOrdered By: Aisha Saavedra on 01-30-2025 Erythrocyte distribution width (RBC) [Ratio] 44.9 fl High 35.1-43.9 [facility] Glomerular filtration rate ( GFR) estimation/1.73 sq m using serum, plasma, or whole bOrdered By: Aisha Saavedra on 01-30-2025 GFR/1.73 sq M.predicted among non-blacks MDRD (S/P/Bld) [Vol rate/Area] 96 mL/min/{1.73_m2} >60 [facility] Comment on above: mL/min/1.73m2 CKD-EP I Creatinine Equation (2020) Hematocrit Auto (Bld) [Volum e fraction]Ordered By: Aisha Saavedra on 01-30-2025 Hematocrit (Bld) [Volume fraction] 47.6 % 40-54 [facility] Hemoglobin measurementOrdere d By: Aisha Saavedra on 01-30-2025 Hemoglobin (Bld) [Mass/Vol] 15.9 g/dL 13.0-16.5 [facility] Immature granulocytes/100 WB C Auto (Bld)Ordered By: Aisha Saavedra on 01-30-2025 Immature granulocytes/100 WBC (Bld) 0.200 % 0.0-0.9 [facility] Comment on above: IG% - Immature Granu locytes (promyelocytes, myelocytes and metamyelocytes) > 1% indicates that a LEFT SHIFT is Present. LDL calc ser/plasOrdered By: Aisha Saavedra on 01-30-2025 Cholesterol in LDL [Mass/Vol] 67 mg/dL [facility] Comment on above: Gcalijdvrg=927-300 m g/dL & Higher Tjvw=568 mg/dL or greater Laboratory - Chemistry and C hemistry - challengeOrdered By: Aisha Saavedra on 01-30-2025 AST [Catalytic activity/Vol] 16 U/L <38 [facility] Lipid Profileon 01-30-2025 CHOL:HDL 2.79 Normal [facility] Comment on above: Performed By: #### L 500.4050, L500.4100, L100.0100, L501.9940 #### [facility] Laboratory [address] [place], [address] Cholesterol [Mass/Vol] 133 mg/dL Normal <=200 [facility] Comment on above: Result Comment: Chol esterol level, Desirable <200 mg/dL Borderline high cholesterol 200-239 mg/dL High cholesterol >=240 mg/dL Recommendations of the NCEP Adult Treatment Panel for the following risk-cutoff thresholds for the [place] population. Performed By: #### L 500.4050, L500.4100, L100.0100, L501.9940 #### [facility] [address] [place], [address] Cholesterol in HDL [Mass/Vol] 48 mg/dL Normal [facility] Comment on above: Result Comment: Lisa onal Cholesterol Education Program (NCEP) guidelines: <40 mg/dL: Low HDL-cholesterol (major risk factor for CHD) >= 60 mg/dL: High HDL-cholesterol (negative risk factor for CHD) HDL-cholesterol is affected by a number of factors, e.g. smoking, exercise, hormones, sex and age. Performed By: #### L 500.4050, L500.4100, L100.0100, L501.9940 #### [facility] [address] [place], [address] Cholesterol in LDL [Mass/Vol] 67 mg/dL Normal [facility] Comment on above: Result Comment: Bord sotqri=483-400 mg/dL Higher Ddnb=320 mg/dL or greater Performed By: #### L 500.4050, L500.4100, L100.0100, L501.9940 #### [facility] [address] [place], [address] Cholesterol in VLDL [Mass/Vol] 18 mg/dL Normal 5-40 [facility] Comment on above: Performed By: #### L 500.4050, L500.4100, L100.0100, L501.9940 #### [facility] [address] [place], [address] Triglyceride [Mass/Vol] 91 mg/dL Normal [facility] Comment on above: Result Comment: The drugs N-Acetylcysteine and Metamizole may falsely depress this assay. Normal range: <150 mg/dL Borderline High: 150-199 mg/dL High: 200-499 mg/dL Very High: >500 mg/dL Performed By: #### L 500.4050, L500.4100, L100.0100, L501.9940 #### [facility] [address] [place], [place], [id number] MCV (mean corpuscular volume ) determinationOrdered By: Aisha Saavedra on 01-30-2025 MCV (RBC) [Entitic vol] 94.3 fL High 80-94 [facility] Mean corpuscular hemoglobin (MCH) determinationOrdered By: Aisha Saavedra on 01-30-2025 MCH (RBC) [Entitic mass] 31.5 pg 27.0-32.0 [facility] Mean corpuscular hemoglobin concentration (MCHC) determinationOrdered By: Aisha Saavedra on 01-30-2025 MCHC (RBC) [Mass/Vol] 33.4 g/dL 32-36 [facility] Mean platelet volume determi nationOrdered By: Aisha Saavedra on 01-30-2025 Platelet mean volume (Bld) [Entitic vol] 11.3 fL 6.2-12.0 [facility] Monocyte percentageOrdered B y: Aihsa Saavedra on 01-30-2025 Monocytes/100 WBC (Bld) 10.5 % High 0-10 [facility] Neutrophil percentageOrdered By: Aisha Saavedra on 01-30-2025 Neutrophils/100 WBC (Bld) 59.7 % 47-70 [facility] Nucleated red blood cell per centageOrdered By: Aisha Saavedra on 01-30-2025 Nucleated RBC/100 WBC (Bld) [Ratio] 0 % 0-5 [facility] PSA,Total- Diagn[employer]icon 06 8-2025 PSA, DIAGNOSTIC 0.38 ng/mL Normal 0.00-4.00 [facility] Comment on above: Result Comment: This test was performed using the [employer] tPSA method. Measured values of a patient??sample can vary depending on the testing procedure used. PSA values determined on patient samples by different testing procedures cannot be used interchangeably. If there is a change in PSA assays while monitoring therapy, sequential testing should be performed to confirm baseline values. Performed By: #### L 500.4050, L500.4100, L100.0100, L501.9940 #### [facility] [address] [place], [place], [id number] Platelet countOrdered By: Joe Saavedra on 01-30-2025 Platelets (Bld) [#/Vol] 251 10*3/uL 150-450 [facility] Potassium measurement (mass/ volume)Ordered By: Aisha Saavedra on 01-30-2025 Potassium (Unsp spec) [Mass/Vol] 4.5 mmol/L 3.3-5.1 [facility] RBC Auto (Bld) [#/Vol]Ordere d By: Aisha Saavedra on 01-30-2025 RBC (Bld) [#/Vol] 5.05 10*6/uL 4.6-6.2 [facility] Screening total cholesterol/ high density lipoprotein (HDL) cholesterol ratioOrdered By: Aisha Saavedra on 01-30-2025 Cholesterol.total/Cholest tawanda in HDL [Mass ratio] 2.79 {ratio} [facility] Serum creatinine measurement (mass/volume)Ordered By: Aisha Saavedra on 01-30-2025 Creatinine [Mass/Vol] 0.81 mg/dL 0.70-1.20 [facility] Serum globulin measurementOr dered By: Aisha Saavedra on 01-30-2025 Globulin (S) [Mass/Vol] 2.8 g/dL 2.2-4.2 [facility] Serum glucose measurement (m ass/volume)Ordered By: Aisha Saavedra on 01-30-2025 Glucose [Mass/Vol] 97 mg/dL 70-99 [facility] Serum or plasma alanine mccormick otransferase (ALT) measurementOrdered By: Aisha Saavedra on 01-30-2025 ALT [Catalytic activity/Vol] 13 U/L <47 [facility] Serum or plasma albumin marlee urement (mass/volume)Ordered By: Aisha Saavedra on 01-30-2025 Albumin [Mass/Vol] 4.2 g/dL 3.4-4.8 [facility] Serum or plasma albumin/glob ulin mass ratioOrdered By: Aisha Saavedra on 01-30-2025 Albumin/Globulin [Mass ratio] 1.5 {ratio} 0.9-2.4 [facility] Serum or plasma alkaline amber sphatase measurementOrdered By: Aisha Saavedra on 01-30-2025 ALP [Catalytic activity/Vol] 95 U/L 40-129 [facility] Serum or plasma calcium marlee urement (mass/volume)Ordered By: Aisha Saavedra on 01-30-2025 Calcium [Mass/Vol] 9.7 mg/dL 7.6-11.0 [facility] Serum or plasma cholesterol in HDL measurement (mass/volume)Ordered By: Aisha Saavedra on 01-30-2025 Cholesterol in HDL [Mass/Vol] 48 mg/dL >40 [facility] Comment on above: National Cholesterol Education Program (NCEP) guidelines:<40 mg/dL: Low HDL-cholesterol (major risk factor for CHD)>= 60 mg/dL: High HDL-cholesterol (negative risk factor for CHD)HDL-cholesterol is affected by a number of factors, e.g. smoking, exercise, hormones, sex and age. Serum or plasma cholesterol measurement (mass/volume)Ordered By: Aisha Saavedra on 01-30-2025 Cholesterol [Mass/Vol] 133 mg/dL <201 [facility] Comment on above: Cholesterol level, D esirable <200 mg/dLBorderline high cholesterol 200-239 mg/dLHigh cholesterol >=240 mg/dLRecommendations of the NCEP Adult Treatment Panel for the following risk-cutoff thresholds for the [place] population. Serum or plasma urea nitroge n measurement (mass/volume)Ordered By: Aisha Saavedra on 01-30-2025 Urea nitrogen [Mass/Vol] 17 mg/dL 4-19 [facility] Sodium levelOrdered By: Daniel Saavedra on 01-30-2025 Sodium [Moles/Vol] 140 mmol/L 133-145 [facility] Total proteinOrdered By: Darwin Saavedra on 01-30-2025 Protein [Mass/Vol] 7.0 g/dL 5.9-8.4 [facility] Triglycerides measurementOrd ered By: Aisha Saavedra on 01-30-2025 Triglyceride [Mass/Vol] 91 mg/dL <199 [facility] Comment on above: The drugs N-Acetylcy steine and Metamizole may falsely depress this assay. Normal range: <150 mg/dLBorderline High: 150-199 mg/dLHigh: 200-499 mg/dLVery High: >500 mg/dL White blood cell (WBC) count Ordered By: Aisha Saavedra on 01-30-2025 WBC (Bld) [#/Vol] 8.2 10*3/uL 4.4-11.0 [facility] Internal Medicine Office Vis iton 01-29-2025 Internal Medicine Office Visit [facility], [id number] [place] [address] [place] [address] OFFICE VISIT Date of Service: 01/30/25 MR#: [id number] Acct: [id number] Name: DREA MAX Rep #: [id number] : 1955 Provider: Dr. Aisha galdamez MD Age/Sex: 69/M Location: [facility] Status: Signed Intake Vital Signs 08/01/24 09:55 01/30/25 09:07 Height 6 ft 6 ft Weight: 186 lb BMI 25.2 BP 136/84 H Blood Pressure Location Lt brachial Position Sitting Respiration 18 Pulse 69 Pulse Source Monitor Temp 97.4 F L Temp Source Temporal Pulse Oximetry (%) 93 Oxygen Delivery Method room air Intake Visit Reasons: 6 M FU Chief Complaint: 6 M FU Is patient in pain?: No Allergies naproxen (From Aleve) Adverse Reaction (Verified 01/30/25 09:18) palpitations Medications ???Medication ???Instructions ???Recorded ???Confirmed ???Type aspirin 81 mg tablet,delayed 81 mg PO DAILY 08/31/23 01/30/25 H istory release nitroglycerin 0.3 mg sublingual 0.3 mg sublingual Q5M PRN chest 01/30/25 Rx tablet pain #30 tabs atorvastatin 40 mg tablet 40 mg PO DAILY #90 tabs 08/23/24 0 01/30/25 Rx carvedilol 6.25 mg tablet 6.25 mg PO BID #180 tabs 09/18/24 01/30/25 Rx tadalafil 5 mg tablet (Cialis) 5 mg PO DAILY #90 tabs 09/18/24 Rx tamsulosin 0.4 mg capsule (Flomax) 0.4 mg PO QHS #30 caps 01/30/25 01/30/25 Rx Have you fallen in the past year?: No Nurse's Note: pt has c/o when taking aleve for his hip pain about 10 days ago he noticed that he had episodes of heart racing while he was just sitting still on his front deck. denies chest pain or SOB but states that since his stent placement he is supposed to see a textile machinery sales representative every 2 years and it has been 3 years. [facility] Medical History Skin cancer Heart disease Hearing problem Bone fracture Rupture of extensor tendon of finger Surgical History (Updated 01/30/25 @ 09:[address] Aisha Saavedra MD) History of banding of hemorrhoid History of ankle surgery H/O rhinoplasty H/O heart artery stent Family History Father Cancer, Onset Age: 80 leukemia Aunt CAD (coronary artery disease) Uncle CAD (coronary artery disease) Social History (Updated 01/30/25 @ 09:[address] Aisha Saavedra MD) household members: significant other housing: house current occupational status: retired current occupation: worked in [employer] Smoking Status: Former smoker quit date: 08/15/15 pack-years: 40 Electronic Cigarette Use: not used alcohol intake: current alcohol intake frequency: a few times a month Alcohol type: hard liquor substance use type: marijuana what type of physical activity do you participate in: walking seatbelt use: always do you feel safe at home: Yes Questionnaire PQH-9 BMS Over the last 2 weeks, how often have you been bothered by any of the following problems? 1. Little interest or pleasure in doing things: not at all 2. Feeling down, depressed, or hopeless: not at all 3. Trouble falling or staying asleep, or sleeping too much: not at all 4. Feeling tired or having little energy: not at all 5. Poor appetite or overeating: not at all 6. Feeling bad about yourself - or that you are a failure or have let yourself and your family down: not at all 7. Trouble concentrating on things, such as reading the newspaper or watching television: nearly every day 8. Moving or speaking so slowly that other people could have noticed? - Or the opposite - being so fidgety or restless that you have been moving around a lot more than usual: several days 9. Thoughts that you would be better off or of hurting yourself in some way: not at all Total score: 4 If you checked off any problems, how difficult have these problems made it for you to do your work, take care of things at home, or get along with other people?: not difficult at all Source: Developed by Drs. Deng Mai, Kareen Perez, Ky Taylor and colleagues, with an educational rolando from [employer]. ESTELITA-7 BMS ESTELITA-7 Feeling nervous, anxious, or on edge: 0 = Not at all Not being able to stop or control worryin = Not at all Worrying too much about different things: 0 = Not at all Trouble relaxin = Not at all Being so restless that it is hard to sit still: 0 = Not at all Becoming easily annoyed or irritable: 0 = Not at all Feeling afraid as if something awful might happen: 0 = Not at all Total ESTELITA-7 score (0-4 normal; 5-9 mild; 10-14 moderate; 15-21 severe): 0 Source: Developed by Drs. Deng Mai, Ky Lin and colleagues, with an educational rolando from [employer]. HPI HPI Chief Complaint: 6 M FU Details: DREA MAX, is a 69 M who (more content not included)... Normal [facility] Internal Medicine Office Vis nannette 07-31-2024 Internal Medicine Office Visit [facility] [address] [place] [address] OFFICE VISIT Date of Service: 08/01/24 MR#: [id number] Acct: [id number] Name: DREA MAX Rep #: [id number] : 1955 Provider: Dr. Aisha galdamez MD Age/Sex: 68/M Location: [facility] Status: Signed with Addenda ADDENDUM by Dr. Aisha Saavedra MD on 08/02/24 at 1614 Assessment and Plan Assessment and Plan (1) Rash and nonspecific skin eruption: Plan: Not fully addressed today. Patient has a mild appearing rash over his scalp. Will try a steroid shampoo and monitor. He was in agreement. Orders: Referrals Ears, Nose and Throat H91.90 - Unspecified hearing loss, unspecified ear Medications: New clobetasol 0.05% (Clobex) 1 applic topical QDAY 118 mL 0RF 1 week Plan Details Follow Up: 6 Months 08/02/24 1614 Date Aisha Saavedra MD cc: * Signed Intake Vital Signs 02/08/24 10:25 08/01/24 09:55 08/01/24 12:49 Height 6 ft 6 ft Weight: 190 lb BMI 25.7 BP 152/94 H 138/90 H Blood Pressure Location Lt brachial Position Sitting Respiration 14 Pulse 79 Pulse Source Monitor Temp 98.6 F Temp Source Temporal Pulse Oximetry (%) 98 Intake Visit Reasons: [address] Consult[address] Required: No Is patient in pain?: No Allergies No Known Allergies Allergy (Verified 08/01/24 09:49) Medications ???Medication ???Instructions ???Recorded ???Confirmed ???Type aspirin 81 mg tablet,delayed 81 mg PO DAILY 08/31/23 08/01/24 History release atorvastatin 40 mg tablet 40 mg PO DAILY #90 tabs 03/05/24 08/01/24 Rx carvedilol 6.25 mg tablet 6.25 mg PO BID #180 tabs 03/05/24 08/01/24 Rx tadalafil 5 mg tablet (Cialis) 5 mg PO DAILY #90 tabs 03/05/24 08/01/24 Rx nitroglycerin 0.3 mg sublingual 0.3 mg sublingual Q5M PRN chest 05/28/24 08/01/24 Rx tablet pain #30 tabs Have you fallen in the past year?: Yes (07/31/2024. Bruised L fisher after tripping) Nurse's Note: States he has bad tinnitus in L ear and thinks it's starting to affect his balance, had it a couple of years ago after covid, was unable to get into an ENT for 9 months so he said nevermind. States overtime his balance has become worse and worse. Denies dizziness. [facility] Medical History Skin cancer Heart disease Hearing problem Bone fracture Rupture of extensor tendon of finger Surgical History History of ankle surgery H/O rhinoplasty H/O heart artery stent Family History Father Cancer, Onset Age: 80 leukemia Aunt CAD (coronary artery disease) Uncle CAD (coronary artery disease) Social History household members: children and other details: 2 grandsons housing: house current occupational status: retired current occupation: worked in [employer] Smoking Status: Former smoker quit date: 08/15/15 pack-years: 40 Electronic Cigarette Use: not used alcohol intake: current alcohol intake frequency: a few times a month Alcohol type: hard liquor substance use type: marijuana what type of physical activity do you participate in: walking seatbelt use: always do you feel safe at home: Yes HPI HPI Details: DREA MAX, is a 68 M who presents to the office today for a follow up. He is up to date on his screening and routine blood work. He does plan on getting his COVID and flu shot at the pharmacy. He doesn't smoke and doesn't need any refills. He reports he is eating kind of healthy and staying active. He doesn't check his blood pressure at home. He is taking his medication as prescribed without problems. He does try to monitor his salt intake 'more or less.' He has a history of CAD s/p stent. He was seeing cardiology but hasn't seen them in a couple of years. He is taking his medications as prescribed without problems. He reports a couple of weeks ago, he had an episode of palpitations. He reports the monitor on his phone said everything looked normal. He reports he didn't have any associated chest pain or shortness of breath. He denies it feeling like it was skipping around, but states it just felt like it was racing. He hasn't had any further episodes since then. He reports his ED symptoms have been doing well with the cialis. He denies any problems with the medication. He reports his mental health has been doing well. He stopped taking the wellbutrin about a month ago due to it causing anger outburts. He hasn't noticed any problems with crying or other depression/anxiety since being off of it. He hasn't had any more episodes of vision loss. The pa (more content not included)... Normal [facility] 36on 02-01-2024 36 We want to inform you that your patient's blood pressure was noted to be elevated in our office today. We thank you for trusting us with your patient's health. Last BP: BP Readings from Last 2 Encounters: 02/01/24 (!) 140/96 [facility] Office Visiton 02-01-2024 Follow-up visit [id number] Drea Max 1955 M Date Provider Department Center 02/01/2024 [id number]YL[facility] None No family history on file Level of Service:52386 ME OFFICE/OUTPATIENT NEW LOW MDM 30 MINUTES Reason for Visit and Comments: Erectile Dysfunction [060722] - Patient states ed started 4 months ago, 3 instances of dry orgasms, denies any other issues at this time [facility] Progress Noteon 02-01-2024 Progress Note Cristopher Wylie MD 02/01/2024 at 1:37 PM UROLOGY INITIAL OFFICE VISIT PATIENT NAME: Drea Max DATE OF : 1955 TODAY'S DATE: 02/01/2024 Chief Complaint: Chief Complaint Patient presents with ? Erectile Dysfunction Patient states ed started 4 months ago, 3 instances of dry orgasms, denies any other issues at this time HISTORY OF PRESENT ILLNESS: Mr. Max is a 68 y.o. male who presents with erectile dysfunction and possible anorgasmia Moved to [place] in April. 10 years ago and was sick 3 years prior so had not been sexually active for awhile. On daily cialis. This has improved erections enough to have intercourse. He has had several episodes of no ejaculate coming out during orgasm. He also is having trouble reaching orgasm REVIEW OF SYSTEMS: Review of Systems Constitutional: Negative for activity change, appetite change and chills. Respiratory: Negative for shortness of breath. Cardiovascular: Negative for chest pain and palpitations. Gastrointestinal: Negative for abdominal distention and diarrhea. Genitourinary: Negative for difficulty urinating, dysuria, flank pain, frequency, hematuria, penile pain and urgency. Skin: Negative for color change. Past Medical History: No past medical history on file. Past Surgical History: No past surgical history on file. Current Medications: Prior to Admission medications Medication Sig Start Date End Date Taking? Authorizing Provider aspirin 81 MG EC tablet Take 81 mg by mouth daily. 08/31/23 Yes Historical Provider, buPROPion XL (Wellbutrin XL) 150 MG 24 hr tablet Take 150 mg by mouth every morning. 01/24/24 Yes Historical Provider, atorvastatin (Lipitor) 40 MG tablet Take 40 mg by mouth daily. Historical Provider, carvedilol (Coreg) 6.25 MG tablet Take 6.25 mg by mouth in the morning and 6.25 mg in the evening. Take with meals. Historical Provider, tadalafil (Cialis) 5 MG tablet Take 5 mg by mouth daily. Historical Provider, Allergies: Patient has no known allergies. Social History: Social History Socioeconomic History ? Marital status: Single Spouse name: Not on file ? Number of children: Not on file ? Years of education: Not on file ? Highest education level: Not on file Occupational History ? Not on file Tobacco Use ? Smoking status: Not on file ? Smokeless tobacco: Not on file Substance and Sexual Activity ? Alcohol use: Not on file ? Drug use: Not on file ? Sexual activity: Not on file Other Topics Concern ? Not on file Social History Narrative ? Not on file Social Determinants of Health Financial Resource Strain: Not on file Food Insecurity: Not on file Transportation Needs: Not on file Physical Activity: Not on file Stress: Not on file Social Connections: Not on file Intimate Partner Violence: Not on file Housing Stability: Not on file Family History: No family history on file. PHYSICAL EXAM: VITALS: BP (!) 140/96 Pulse 76 Ht 6' (1.829 m) Wt 174 lb (78.9 kg) BMI 23.60 kg/m? Physical Exam Constitutional: General: He is not in acute distress. Appearance: Normal appearance. He is not ill-appearing or toxic-appearing. Abdominal: General: Abdomen is flat. There is no distension. Palpations: Abdomen is soft. Tenderness: There is no abdominal tenderness. Neurological: Mental Status: He is alert. 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 Cristopher Wylie MD 02/01/24 1:37 PM Normal [facility] Absolute lymphocyte countOrd ered By: Aisha Saavedra on 10-13-2023 Lymphocytes Auto (Unsp spec) [#/Vol] 2.93 10*3/uL 0.83-4.51 [facility] Automated lymphocyte count a s percentage of total leukocytesOrdered By: Aisha Saavedra on 10-13-2023 Lymphocytes/100 WBC Auto (Unsp spec) 27.3 % 19-41 [facility] Basophil percentageOrdered B y: Aisha Saavedra on 10-13-2023 Basophils/100 WBC (Bld) 0.6 % 0-1 [facility] Bilirubin [Mass/Vol] 0.70 mg/dL 0.20-1.00 [facility] [facility] Comment on above: For patients on eltr ombopag therapy, use of [facility] [place] TBIL is not recommended. Chloride [Moles/Vol] 110 mmol/L 98-107 [facility] Cholesterol [Mass/Vol] 139 mg/dL <200 [facility] Comment on above: <200 mg/dL Desirable 200-240 mg/dL Borderline >240 mg/dL High Risk Eosinophils/100 WBC (Bld) 2.0 % 0-5 [facility] Glucose [Mass/Vol] 93 mg/dL 74-106 [facility] Hemoglobin (Bld) [Mass/Vol] 16.0 g/dL 13.0-16.5 [facility] Monocytes/100 WBC (Bld) 8.2 % 0-10 [facility] Neutrophils (Bld) [#/Vol] 6.6 10*3/uL 2.0-7.7 [facility] Neutrophils/100 WBC (Bld) 61.5 % 47-70 [facility] Potassium [Moles/Vol] 4.5 mmol/L 3.5-5.1 [facility] Protein [Mass/Vol] 7.4 g/dL 6.4-8.2 [facility] Sodium [Moles/Vol] 142 mmol/L 136-145 [facility] Triglyceride [Mass/Vol] 138 mg/dL <199 [facility] Comment on above: The drugs N-Acetylcy steine and Metamizole may falsely depress this assay.Serum Triglycerides Reference Interval Normal <150 mg/dL Borderline high 150 - 199 mg/dL High 200 - 499 mg/dL Very High > or = 500 mg/dL WBC (Bld) [#/Vol] 10.7 10*3/uL 4.4-11.0 [facility] Determination of erythrocyte mean corpuscular volume (MCV)Ordered By: Aisha Saavedra on 10-13-2023 MCV (RBC) [Entitic vol] 94.5 fL 80-94 [facility] Erythrocyte distribution wid th ratioOrdered By: Aisha Saavedra on 10-13-2023 Erythrocyte distribution width (RBC) [Ratio] 13.2 % 11.6-14.6 [facility] Erythrocyte distribution wid th standard deviationOrdered By: Aisharachel Saavedra on 10-13-2023 Erythrocyte distribution width (RBC) [Entitic vol] 46.0 fL 35.1-43.9 [facility] Hematocrit Auto (Bld) [Volum e fraction]Ordered By: Aisha Saavedra on 10-13-2023 Hematocrit (Bld) [Volume fraction] 49.8 % 40-54 [facility] Immature granulocytes/100 WB C Auto (Bld)Ordered By: Aisharachel Saavedra on 10-13-2023 Immature granulocytes/100 WBC (Bld) 0.400 % 0.0-0.9 [facility] Comment on above: IG% - Immature Granu locytes (promyelocytes, myelocytes and metamyelocytes) > 1% indicates that a LEFT SHIFT is Present. Laboratory - Chemistry and C hemistry - challengeOrdered By: Aisha Saavedra on 10-13-2023 Albumin/Globulin [Mass ratio] 1.1 {ratio} 0.9-2.4 [facility] ALP [Catalytic activity/Vol] 84 U/L 45-117 [facility] ALT [Catalytic activity/Vol] 26 U/L 16-61 [facility] Cholesterol in HDL [Mass/Vol] 52 mg/dL >40 [facility] Comment on above: The drugs N-Acetylcy steine and Metamizole may falsely depress this assay. Reference Range HDL <40 mg/dL Low HDL Cholesterol HDL >or= 60 mg/dL High HDL Cholesterol Cholesterol in LDL [Mass/Vol] 59 mg/dL 0-130 [facility] CO2 [Moles/Vol] 29.0 mmol/L 21.0-32.0 [facility] Globulin (S) [Mass/Vol] 3.5 g/dL 2.2-4.2 [facility] Urea nitrogen/Creatinine [Mass ratio] 20.2 mg/mg 10-20 [facility] Laboratory - Hematology and Cell countsOrdered By: Aisha Saavedra on 10-13-2023 MCH (RBC) [Entitic mass] 30.4 pg 27.0-32.0 [facility] MCHC (RBC) [Mass/Vol] 32.1 g/dL 32-36 [facility] Nucleated RBC/100 WBC (Bld) [Ratio] 0 % 0-5 [facility] Platelet mean volume (Bld) [Entitic vol] 11.2 fL 6.2-12.0 [facility] Platelets (Bld) [#/Vol] 303 10*3/uL 150-450 [facility] No Panel InformationOrdered By: Aisha Saavedra on 10-13-2023 Estimated GFR (MDRD) Amer 125 mL/min >60 [facility] Comment on above: GFR Calc Estimated GFR (MDRD) Non-Af Amer 103 mL/min >60 [facility] Comment on above: Non- GFR Calc Prostate Specific Antigen Screen 0.75 ng/mL 0.00-4.00 [facility] Comment on above: This test was perfor med using the TPSA assay method for the[employer] chemistry system. Values obtained with differentassay methods cannot be used interchangably.When changing PSA assays in the course of monitoring apatient, additional sequential testing should be carriedout to confirm baseline values. VLDL Cholesterol 28 mg/dL 5-40 [facility] RBC Auto (Bld) [#/Vol]Ordere d By: Aisha Saavedra on 10-13-2023 RBC (Bld) [#/Vol] 5.27 10*6/uL 4.6-6.2 [facility] Serum or plasma calcium marlee urement (mass/volume)Ordered By: Aisha Saavedra on 10-13-2023 Calcium [Mass/Vol] 9.3 mg/dL 8.5-10.1 [facility] Serum or plasma creatinine m easurement (mass/volume)Ordered By: Aisha Saavedra on 10-13-2023 Creatinine [Mass/Vol] 0.79 mg/dL 0.70-1.30 [facility] Comment on above: The validity of the calculated GFR & GFRAA in patients over 70 years has not been determined. Clinical correlation is essential. Serum or plasma thyroid stim ulating hormone (TSH) measurement (units/volume)Ordered By: Aisha Saavedra on 10-13-2023 TSH Qn 3.39 uIU/mL 0.358-3.74 [facility] Serum or plasma urea nitroge n measurement (mass/volume)Ordered By: Aisha Saavedra on 10-13-2023 Urea nitrogen [Mass/Vol] 16 mg/dL 7-18 [facility] Thin prep Papanicolaou smear with manual screeningOrdered By: Aisha Saavedra on 10-13-2023 Thin prep Papanicolaou smear with manual screening 3.9 g/dL 3.2-5.0 [facility] Thin prep Papanicolaou smear with manual screening 14 U/L 15-37 [facility] Thin prep Papanicolaou smear with manual screening 3 5-15 [facility] Vital Signs Date Time Vital Sign Value Performing Clinician Faci lity 01-30-2025 09:07-0400 Body height 182.[address] Aisha Saavedra MD Work Phone: [facility] 01-30-2025 09:07-0400 Body mass index (BMI) [Ratio] 25.2 kg/m2 Dr. Aisha Saavedra MD Work Phone: [facility] 01-30-2025 09:07-0400 Body temperature 97.4 [degF] Dr. Aisha Saavedra MD Work Phone: [facility] 01-30-2025 09:07-0400 Body weight 84.[address] Aisha Saavedra MD Work Phone: [facility] 01-30-2025 09:07-0400 Diastolic blood pressure 84 mm[Hg] Dr. Aisha Saavedra MD Work Phone: [facility] 01-30-2025 09:07-0400 Heart rate 69 /min Dr. Aisha Saavedra MD Work Phone: [facility] 01-30-2025 09:07-0400 Respiratory rate 18 /min Dr. Aisha Saavedra MD Work Phone: [facility] 01-30-2025 09:07-0400 SaO2% (BldA) [Mass fraction] 93 % Dr. Aisha Saavedra MD Work Phone: [facility] 01-30-2025 09:07-0400 Systolic blood pressure 136 mm[Hg] Dr. Aisha Saavedra MD Work Phone: [facility] 02-01-2024 13:05-0400 Body height 182.9 cm Cristopher Wylie MD Work Phone: [facility] 02-01-2024 13:05-0400 Body mass index (BMI) [Ratio] 23.6 kg/m2 Cristopher Wylie MD Work Phone: [facility] 02-01-2024 13:05-0400 Body weight 78.93 kg Cristopher Wylie MD Work Phone: [facility] 02-01-2024 13:05-0400 Diastolic blood pressure 96 mm[Hg] Cristopher Wylie MD Work Phone: [facility] 02-01-2024 13:05-0400 Heart rate 76 /min Cristopher Wylie MD Work Phone: [facility] 02-01-2024 13:05-0400 Systolic blood pressure 140 mm[Hg] Cristopher Wylie MD Work Phone: [facility] 10-13-2023 14:03-0500 Body height 182.88 cm JOSE GARCIA Work Phone: [facility] 10-13-2023 14:03-0500 Body mass index (BMI) [Ratio] 25.4 kg/m2 PA Darwin GARCIA Work Phone: [facility] 10-13-2023 14:03-0500 Body temperature 97.2 [degF] PA Darwin GARCIA Work Phone: [facility] 10-13-2023 14:03-0500 Body weight 85.04 kg JOSE GARCIA Work Phone: [facility] 10-13-2023 14:03-0500 Diastolic blood pressure 80 mm[Hg] PA Darwin Rockwell PA Work Phone: [facility] 10-13-2023 14:03-0500 Heart rate 72 /min PA Darwin Rockwell PA Work Phone: [facility] 10-13-2023 14:03-0500 Respiratory rate 16 /min PA Darwin Rockwell PA Work Phone: [facility] 10-13-2023 14:03-0500 SaO2% (BldA) [Mass fraction] 98 % PA Darwin Rockwell PA Work Phone: [facility] 10-13-2023 14:03-0500 Systolic blood pressure 132 mm[Hg] PA Darwin Rockwell PA Work Phone: [facility] 08-31-2023 12:57-0500 Body mass index (BMI) [Ratio] 24.4 kg/m2 PA Darwin Rockwell PA Work Phone: [facility] 08-31-2023 12:57-0500 Body weight 81.64 kg PA Darwin Rockwell PA Work Phone: [facility] 08-29-2023 08:19-0500 Body mass index (BMI) [Ratio] 24.7 kg/m2 PA Darwin Rockwell PA Work Phone: [facility] 08-29-2023 08:19-0500 Body temperature 98 [degF] PA Darwin Rockwell PA Work Phone: [facility] 08-29-2023 08:19-0500 Body weight 82.55 kg PA Darwin Rockwell PA Work Phone: [facility] 08-29-2023 08:19-0500 Diastolic blood pressure 82 mm[Hg] PA Darwin Rockwell PA Work Phone: [facility] 08-29-2023 08:19-0500 Heart rate 75 /min PA Darwin Rockwell PA Work Phone: [facility] 08-29-2023 08:19-0500 Respiratory rate 12 /min JOSE GARCIA Work Phone: [facility] 08-29-2023 08:19-0500 SaO2% (BldA) [Mass fraction] 97 % JOSE GARCIA Work Phone: [facility] 08-29-2023 08:19-0500 Systolic blood pressure 126 mm[Hg] JOSE GARCIA Work Phone: [facility] Encounters Encounter Date Encounter Type Care Provider Facility Start: 02-21-2025 End: 02-21-[address] Aisha Saavedra MD Work Phone: [facility] Start: 02-21-2025 End: 02-21-[address] A[facility] Saaved[facility] Work Phone: Start: 02-21-2025 End: 02-21-2025 ambulatory Aisha Saavedra Facility:[facility] Start: 01-30-2025 End: 01-30-[address] Aisha Saavedra MD Work Phone: [facility] Work Phone: Start: 01-30-2025 End: 01-30-[address] Aisha Saavedra MD -[facility] Start: 01-30-2025 End: 01-30-[address] Aisha Saavedra MD -[facility] Work Phone: Start: 01-30-2025 End: 01-30-[address] 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 Aisha Saavedra Work Phone: [facility] Work Phone: Start: 11-09-2023 End: 11-09-[address] Aisha Saavedra Work Phone: [facility]-Laboratory, [facility] Start: 11-01-[address] Mukesh Saavedra Work Phone: [facility]Occ[facility]ational [facility] Work Phone: Start: 10-25-2023 Non-patient / Non-visit Dr. Sparks Work Phone: [facility] Start: 10-25-2023 End: 10-25-[address] Aisha Saavedra Work Phone: [facility] Work Phone: Start: 10-25-2023 End: 10-25-[address] Aisha Saavedra Work Phone: [facility]Cardiovascular Services Work Phone: Start: 10-19-[address] Mukesh Saavedra Work Phone: [facility] Work Phone: Start: 10-13-2023 End: 10-13-2023 ambulatory JOSE GARCIA Work Phone: [facility] Work Phone: Start: 10-13-2023 End: 10-13-2023 Patient encounter procedure JOSE GARCIA Work Phone: [facility]Laboratory, [facility] Start: 10-13-2023 End: 10-13-2023 Patient encounter procedure JOSE GARCIA Work Phone: [facility] Work Phone: Start: 09-07-2023 Registered Recurring JOSE GARCIA Work Phone: [facility] Work Phone: Start: 08-31-2023 End: 08-31-2023 Patient encounter procedure JOSE GARCIA Work Phone: [facility] Work Phone: Start: 08-29-2023 End: 08-29-2023 Patient encounter procedure JOSE GARCIA Work Phone: [facility] Work Phone: Procedures Date Procedure Procedure Detail Performing Clinician Start: 02-21-2025 MRI of brain with contrast Dr. Aisha Saavedra MD Work Phone: Start: 01-30-2025 Assay of prostate sp ecific antigen total Dr. Aisha Saavedra MD Work Phone: Comment on above: This test was perfor med using the [employer] tPSA method. Measured values of a patient sample can vary depending on the testing procedure used. PSA values determined on patient samples by different testing procedures cannot be used interchangeably. If there is a change in PSA assays while monitoring therapy, sequential testing should be performed to confirm baseline values. Start: 08-29-2023 Diagnostic radiograp hy of finger JOSE GARCIA Work Phone: Plan of Treatment Date Care Activity Detail Author Start: 01-30-2025 Patient referral [facility] Work Phone: Start: 01-30-2025 CBC W Auto Differential panel - Blood [facility] Start: 01-30-2025 Comprehensive metabolic 2000 panel - Serum or Plasma [facility] Start: 01-30-2025 Lipid 1996 panel - Serum or Plasma [facility] Start: 01-30-2025 Prostate specific antigen measurement [facility] Start: 10-12-2024 Pneumococcal Vaccine: 65+ Years (2 of 2 - PCV) Pneumococcal Vaccine: 65+ Years (2 of 2 - PCV) [facility] Start: 11-25-2023 COVID-19 Vaccine ( season) COVID-19 Vaccine ( season) [facility] Start: 08-31-2023 Patient referral [facility] Work Phone: Start: 08-29-2023 Patient referral [facility] Work Phone: Start: 11-16-2005 Zoster Vaccines (1 of 2) Zoster Vaccines (1 of 2) [facility] Start: 11-16-1974 DTaP/Tdap/Td Vaccines (1 - Tdap) DTaP/Tdap/Td Vaccines (1 - Tdap) [facility] Start: 11-16-1973 Hepatitis C screening Hepatitis C Screening [facility] Start: 1967 Depression Screening Depression Screening [facility] Start: 1955 Lipid panel Lipid Panel [facility] Start: 1955 Medicare Annual Wellness (AWV) Medicare Annual Wellness (AWV) [facility] Start: 1955 Screening for malignant neoplasm of colon [facility] Abdominal aortic ane urysm screening [facility] Alanine aminotransfe rase [Enzymatic activity/volume] in Serum or Plasma [facility] Albumin [Mass/volume ] in Serum or Plasma [facility] Alkaline phosphatase [Enzymatic activity/volume] in Serum or Plasma [facility] Anion gap in Serum o r Plasma [facility] Bilirubin, total measurement [facility] BUN/Creatinine ratio [facility] Calcium [Mass/volume ] in Serum or Plasma [facility] Carbon dioxide, tota l [Moles/volume] in Central venous blood [facility] Cholesterol [Mass/vo lume] in Serum or Plasma [facility] Cholesterol in HDL [Mass/volume] in Serum or Plasma [facility] Creatinine [Mass/vol ume] in Serum or Plasma [facility] Erythrocyte mean corpuscular volume determination [facility] Glucose [Mass/volume ] in Serum or Plasma [facility] Hematocrit [Volume Fraction] of Blood [facility] Hemoglobin [Mass/vol ume] in Blood [facility] Leukocytes [#/volume ] in Blood [facility] Low density lipoprot ein cholesterol measurement [facility] Mean corpuscular hem oglobin concentration determination [facility] Mean corpuscular hem oglobin determination [facility] Measurement of renal function [facility] MRA Head vessels WO and W contrast IV [facility] Neutrophil count [facility] Neutrophil percent differential count [facility] Patient referral [facility] Work Phone: Platelets [#/volume] in Blood [facility] Potassium measurement [facility] Red blood cell count [facility] Red cell distributio n width determination [facility] Serum chloride measurement [facility] Serum testosterone measurement [facility] Sodium measurement [facility] Testosterone measurement [facility] Total cholesterol:HD L ratio measurement [facility] Total protein measurement [facility] Triglycerides measurement [facility] Urea nitrogen [Mass/ volume] in Serum or Plasma [facility] VLDL cholesterol measurement [facility] Immunizations Immunization Date Immunization Notes Care Provider Fa [facility] 01-30-2025 pneumococcal conjuga te vaccine, [address] Aisha Saavedra MD Work Phone: [facility] 10-13-2023 pneumococcal polysaccharide vaccine, 23 valent JOSE GARCIA Work Phone: [facility] 07-26-2023 Influenza, injectabl e, Madin Tigist Canine Kidney, preservative free, quadrivalent JOSE GARCIA Work Phone: [facility] 07-26-2023 Pfizer Covid-19 (Comirnaty) JOSE GARCIA Work Phone: [facility] 07-26-2023 RSV Adult Recombinan t (Arexvy) JOSE GARCIA Work Phone: [facility] Payers Date Payer Category Payer Self-pay 2023 Unknown AARP AARP [id number] 2023-Present [address] [place] [address] Supplement [id number] 2023 Unknown [id number] 2022 Medicare MEDICARE MEDICAR E PART A AND B [id number] 2022-Present [address] [place] [address] Medicare [id number] 2022 Medicare [id number] Unknown [id number] Unknown [id number] Unknown [id number] Unknown [id number] Social History Date Type Detail Facility Start: 10-13-2023 End: 10-13-2023 Tobacco smoking status NHIS Unknown if ever smoked [facility] Start: 1955 Sex Assigned At Male [facility] Start: 1955 Sex assigned at Not on file [facility] Gender identity Not on file [facility] Start: 01-30-2025 Tobacco smoking stat us MSIS Ex-smoker (finding) [facility] Evaluation note 01-30-2025 Note Date & Type Note Facility 01-30-2025 Evaluation note Diagnosis Onset Date Resolution BPH (benign prostatic hyperplasia) noneactive January 30, 2025 8:56am Immunization due noneactive January 8:56am Elevated blood pressure reading noneactive January 30, 2025 8:56am CAD (coronary artery disease) noneactive January 30, 2025 8:56am Pulsatile tinnitus noneactive January 132024 8:56am Mixed hyperlipidemia noneactive January 30, 2025 8:56am Impaired ejaculation noneactive January 30, 2025 8:56am Anxiety and depression noneactive Ju 2024 8:56am [facility] Work Phone: History of Present illness Narrative 02-01-2024 Damon Darby MD - 02/01/2024 1:00 PM EDT Note Date & Type Note Facility 02-01-2024 History of Presen t illness Narrative Images from the original note were not included. Crisotpher Wylie MD 02/01/2024 at 1:37 PM UROLOGY INITIAL OFFICE VISIT PATIENT NAME: Drea Max DATE OF : 1955 TODAY'S DATE: 02/01/2024 Chief Complaint: Chief Complaint Patient presents with Erectile Dysfunction Patient states ed started 4 months ago, 3 instances of dry orgasms, denies any other issues at this time HISTORY OF PRESENT ILLNESS: Mr. Max is a 68 y.o. male who presents with erectile dysfunction and possible anorgasmia Moved to [place] in April. 10 years ago and was sick 3 years prior so had not been sexually active for awhile. On daily cialis. This has improved erections enough to have intercourse. He has had several episodes of no ejaculate coming out during orgasm. He also is having trouble reaching orgasm REVIEW OF SYSTEMS: Review of Systems Constitutional: Negative for activity change, appetite change and chills. Respiratory: Negative for shortness of breath. Cardiovascular: Negative for chest pain and palpitations. Gastrointestinal: Negative for abdominal distention and diarrhea. Genitourinary: Negative for difficulty urinating, dysuria, flank pain, frequency, hematuria, penile pain and urgency. Skin: Negative for color change. Past Medical History: No past medical history on file. Past Surgical History: No past surgical history on file. Current Medications: Prior to Admission medications Medication Sig Start Date End Date Taking? Authorizing Provider aspirin 81 MG EC tablet Take 81 mg by mouth daily. 08/31/23 Yes Historical Provider, buPROPion XL (Wellbutrin XL) 150 MG 24 hr tablet Take 150 mg by mouth every morning. 01/24/24 Yes Historical Provider, atorvastatin (Lipitor) 40 MG tablet Take 40 mg by mouth daily. Historical Provider, carvedilol (Coreg) 6.25 MG tablet Take 6.25 mg by mouth in the morning and 6.25 mg in the evening. Take with meals. Historical Provider, tadalafil (Cialis) 5 MG tablet Take 5 mg by mouth daily. Historical Provider, Allergies: Patient has no known allergies. Social History: Social History Socioeconomic History Marital status: Single Spouse name: Not on file Number of children: Not on file Years of education: Not on file Highest education level: Not on file Occupational History Not on file Tobacco Use Smoking status: Not on file Smokeless tobacco: Not on file Substance and Sexual Activity Alcohol use: Not on file Drug use: Not on file Sexual activity: Not on file Other Topics Concern Not on file Social History Narrative Not on file Social Determinants of Health Financial Resource Strain: Not on file Food Insecurity: Not on file Transportation Needs: Not on file Physical Activity: Not on file Stress: Not on file Social Connections: Not on file Intimate Partner Violence: Not on file Housing Stability: Not on file Family History: No family history on file. PHYSICAL EXAM: VITALS: BP (!) 140/96 Pulse 76 Ht 6' (1.829 m) Wt 174 lb (78.9 kg) BMI 23.60 kg/m Physical Exam Constitutional: General: He is not in acute distress. Appearance: Normal appearance. He is not ill-appearing or toxic-appearing. Abdominal: General: Abdomen is flat. There is no distension. Palpations: Abdomen is soft. Tenderness: There is no abdominal tenderness. Neurological: Mental Status: He is alert. 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 Cristopher Wylie MD 02/01/24 1:37 PM documented in this encounter [facility] Evaluation note Note Date & Type Note Facility Evaluation note Diagnosis Onset Date Rupture of extensor tendon of finger resolved Rupture of extensor tendon of finger resolved Rupture of extensor tendon of finger resolved Skin change noneactive Immunization due noneactive Establishing care with new kamla holliday, encounter for noneactive Erectile dysfunction noneact vania CAD (coronary artery disease) noneactive Mixed hyperlipidemia noneact vania Screening for AAA (abdominal aortic aneurysm) noneactive Inguinal hernia noneactive [facility] Work Phone: Evaluation note Note Date & Type Note Facility Evaluation note Diagnosis 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 documented in this encounter [facility] Evaluation note Note Date & Type Note Facility Evaluation note Diagnosis Onset Date Resolution Elevated blood pressure reading noneactive January 30, 2025 8:56am CAD (coronary artery disease) noneactive January 30, 2025 8:56am Pulsatile tinnitus noneactive January 132024 8:56am Mixed hyperlipidemia noneactive January 30, 2025 8:56am Impaired ejaculation noneactive January 30, 2025 8:56am Anxiety and depression noneactive 2024 8:56am Inguinal hernia noneactive January 8:56am [facility] Work Phone: Hospital Discharge instructions Note Date & Type Note Facility Hospital Discharge instructions Ambulatory OrdersCardiology Location: None Selected [facility] Work Phone: Chief Complaint and Reason for Visit Chief Complaint Admit Date 6 M FU January 30, 2025 8:56 am PULSATION TINNITUS February 21, 2025 12:2 6pm Reason for Visit Admit Date BPH (benign prostatic hyperplasia) January 30, 2025 8:56am Immunization due January 30, 2025 8:56 am Elevated blood pressure reading January 8:56am CAD (coronary artery disease) January 30, 2025 8:56am Pulsatile tinnitus January 30, 2025 8:56 am Mixed hyperlipidemia January 30, 2025 8:5 6am Impaired ejaculation January 30, 2025 8:5 6am Anxiety and depression January 30, 2025 8 :56am Chief Complaint Admit Date 6 M FU January 30, 2025 8:56 am Chief Complaint LEFT PINKY DISLOCATI ON XRAY LEFT HAND RUPTURE OF EXTENSOR TENDON OF FINGER. RX HERE [facility]. EST CARE - PPW SENT Reason for Visit Rupture of extensor tendon of finger Rupture of extensor tendon of finger Rupture of extensor tendon of finger Skin change Immunization due Establishing care with new doctor, encounter for Erectile dysfunction CAD (coronary artery disease) Mixed hyperlipidemia Screening for AAA (abdominal aortic aneurysm) Inguinal hernia Chief Complaint LEFT PINKY DISLOCATI ON XRAY LEFT HAND [facility]. EST CARE - PPW SENT RUPTURE OF EXTENSOR TENDON OF FINGER. RX HERE SCREENING Reason for Visit Rupture of extensor tendon of finger Rupture of extensor tendon of finger Rupture of extensor tendon of finger Skin change Immunization due Establishing care with new doctor, encounter for Erectile dysfunction CAD (coronary artery disease) Mixed hyperlipidemia Screening for AAA (abdominal aortic aneurysm) Inguinal hernia Chief Complaint LEFT PINKY DISLOCATI ON XRAY LEFT HAND [facility]. EST CARE - PPW SENT SCREENING RUPTURE OF EXTENSOR TENDON OF FINGER. RX HERE Reason for Visit Rupture of extensor tendon of finger Rupture of extensor tendon of finger Rupture of extensor tendon of finger Skin change Immunization due Establishing care with new doctor, encounter for Erectile dysfunction CAD (coronary artery disease) Mixed hyperlipidemia Screening for AAA (abdominal aortic aneurysm) Inguinal hernia Reason for Visit Admit Date Elevated blood pressure reading January 8:56am CAD (coronary artery disease) January 30, 2025 8:56am Pulsatile tinnitus January 30, 2025 8:56 am Mixed hyperlipidemia January 30, 2025 8:5 6am Impaired ejaculation January 30, 2025 8:5 6am Anxiety and depression January 30, 2025 8 :56am Inguinal hernia January 30, 2025 8:56 am Family History No Family History Records Found Relationship Condition Age at Onset Recorded Date/T vicente father Malignant neoplasm 80 aunt Coronary artery disease Unknown uncle Coronary artery disease Unknown Relationship Condition Age at Onset Recorded Date/T vicente father Malignant neoplasm 80 Hypertension Unknown aunt Coronary artery disease Unknown uncle Coronary artery disease Unknown sister Hypertension Unknown Summary Purpose Advance Directives No Advanced Directives Records FoundNo Advanced Directives Records Found Additional Source Comments Care Teams (unrecognized sec tion and content) Team Status: Active Member Role Status Dates Dr. Aisha Saavedra MD Primary Care Provider Active Team Status: Inactive Member Role Status Dates Dr. Aisha Saavedra MD Attending Provider Active Team Status: Inactive Member Role Status Dates Darwin Rockwell PA, PA Attending Provider Active Team Status: Inactive Member Role Status Dates Dr. Sanjay Arceo MD Attending Provider Active Team Status: Inactive Member Role Status Dates Parag Richards MD Attending Provider Active Team Status: Active Member Role Status Dates Parag Richards MD Attending Provider, Referring Prov ider Active Team Status: Inactive Member Role Status Dates Dr. Aisha Saavedra MD Primary Care Pro vider, Attending Provider, Referring Provider Active Team Status: Active Member Role Status Dates Dr. Aisha Saavedra MD Primary Care Provider Active Dr. Ryan Paul MD Attending Provider Active Aquatic Scientist Relationship Specialty Start Date End Date Cristopher Wylie MD [address] [facility] [address] [place] [address] Surgeon Urology 02/01/24 Team Status: Inactive Member Role Status Dates Dr. Aisha Saavedra MD Primary Care Provider Active Start: January 30, 2025 End: January 30, 2025 Dr. Asiha Saavedra MD Attending Provider Active Start: January 30, 2025 End: January 30, 2025 Dr. Aisha Saavedra MD Referring Provider Active Start: January 30, 2025 End: January 30, 2025 Team Status: Active Member Role Status Dates Dr. Aisha Saavedra MD Primary Care Provider Active Start: January 30, 2025 Dr. Aisha Saavedra MD Attending Provider Active Start: January 30, 2025 Dr. Aisha Saavedra MD Referring Provider Active Start: January 30, 2025 Team Status: Active Member Role/Relationship Status Dates Dr. Aisha Saavedra MD Primary Care Provider Active Team Status: Inactive Member Role/Relationship Status Dates Dr. Aisha Saavedra MD Primary Care Provider Active Start: January 30, 2025 End: January 30, 2025 Dr. Aisha Saavedra MD Attending Provider Active Start: January 30, 2025 End: January 30, 2025 Dr. Aisha Saavedra MD Referring Provider Active Start: January 30, 2025 End: January 30, 2025 Team Status: Inactive Member Role/Relationship Status Dates Dr. Aisha Saavedra MD Primary Care Provider Active Start: January 30, 2025 End: January 30, 2025 Dr. Aisha Saavedra MD Attending Provider Active Start: January 30, 2025 End: January 30, 2025 Dr. Aisha Saavedra MD Referring Provider Active Start: January 30, 2025 End: January 30, 2025 Team Status: Inactive Member Role/Relationship Status Dates Dr. Aisha Saavedra MD Primary Care Provider Active Start: February 21, 2025 End: February 21, 2025 Dr. Aisha Saavedra MD Attending Provider Active Start: February 21, 2025 End: February 21, 2025 Dr. Aisha Saavedra MD Referring Provider Active Start: February 21, 2025 End: February 21, 2025 Goals (unrecognized section and content) Goals may be documented in a n alternate sectionGoals may be documented in an alternate sectionGoals may be documented in an alternate sectionGoals may be documented in an alternate sectionGoals may be documented in an alternate sectionGoals may be documented in an alternate section Reason for Visit (unrecogniz ed section and content) Reason Comments Erectile Dysfunction Patient states ed s tarted 4 months ago, 3 instances of dry orgasms, denies any other issues at this time (unrecognized sect ion and content) No Status Records FoundNo Status Records Found INFORMATION SOURCE (unrecogn ized section and content) DATE CREATED AUTHOR 02/03/2024 [facility] DATE CREATED AUTHOR AUTHOR'S ORGANIZ ATION 03/04/2025 [facility] FOR RECORDS PERTAINING TO PATIENTS WHO ARE OR HAVE BEEN ENROLLED IN A CHEMICAL DEPENDENCY/SUBSTANCEABUSE PROGRAM, SOME INFORMATION MAY BE OMITTED. This clinical summary was aggregated from multiple sources. Caution should be exercised in using it in the provision of clinical care. This summary normalizes information from multiple sources, and as a consequence, information in this document may materially change the coding, format and clinical context of patient data. In addition, data may be omitted in some cases. CLINICAL DECISIONS SHOULD BE BASED ON THE PRIMARY CLINICAL RECORDS. [email or web address] provides no warranty or guarantee of the accuracy or completeness of information in this document.
--- NOTE | 2025-03-09 06:38 | EKG12_ITS ---
Test Reason : PALPITATIONS Blood Pressure : */* mmHG Vent. Rate : 70 BPM Atrial Rate : 70 BPM P-R Int : 136 ms QRS Dur : 88 ms QT Int : 414 ms P-R-T Axes : 70 50 100 degrees QTcB Int : 447 ms Normal sinus rhythm Nonspecific ST and T wave abnormality Abnormal ECG Confirmed by DAVID RUSSELL MD ([id number]), editorial assistant ALIS FISCHER ([id number]) on 03/11/2025 7:28:20 AM Referred By: SIXTO Confirmed By: DAVID RUSSELL MD
[2025-03-09 06:43] LABS: Hemoglobin 18.5 g/dL (13.0-16.5)
[2025-03-09] MEDS: 0.9% Normal Saline (1000mL) 1,000 ML 999 ML IV (06:50)
[2025-03-09 06:54] LABS: D-Dimer Quantitative (DVT/PE) 0.34 FEU/ug/m (0.27-0.49)
[2025-03-09 07:00] VITALS: BP 126/87; PULSE 68; RESP 18; O2SAT 98
[2025-03-09 07:02] LABS: Anion Gap 13 (5-15); BUN 10 mg/dL (4-19); BUN/Creat Ratio 11.4 RATIO (10-20); Calcium,Total 9.4 mg/dL (7.6-11.0); Carbon Dioxide 21.6 mmol/L (21.0-32.0); Chloride 103 mmol/L (98-108); Estimated Creatinine Clearance 91.10 ml/min (50-250); Glucose 130 mg/dL (70-99); Magnesium 2.3 mg/dL (1.5-2.2); Potassium 4.0 mmol/L (3.3-5.1); Troponin T High Sensitivity 16 ng/L (<=22)
[2025-03-09 07:40] VITALS: BP 120/83; PULSE 64; RESP 18; TEMP 37; O2SAT 96
== END 2025-03-09 08:24 | disposition home or self-care (01) ==
PROVIDERS: Emergency Provider Emergency Medicine; PCP Internal Medicine; Visit Provider Emergency Medicine
DX: R00.2 Palpitations (principal); J44.9 Chronic obstructive pulmonary disease, unspecified; J18.9 Pneumonia, unspecified organism; Z87.891 Personal history of nicotine dependence; Z95.5 Presence of coronary angioplasty implant and graft; I25.10 Atherosclerotic heart disease of native coronary artery without angina pectoris; E78.5 Hyperlipidemia, unspecified; Z85.828 Personal history of other malignant neoplasm of skin; I25.2 Old myocardial infarction; Z79.82 Long term (current) use of aspirin; Z79.899 Other long term (current) drug therapy
CPT/HCPCS: 71046; 80048; 83735; 84443; 84484; 85025; 85379; 93005; 96360; 99284; A4216

== ENCOUNTER → 2025-03-13 | Outpatient (CLI) | payer MEDICARE, OTHER, SELFPAY ==
--- OUTSIDE RECORDS SUMMARY | 2025-03-13 20:27 | XMS RPT_ITS | CCD ---
Author Organization [facility] [place] CliniSynj Care Team Providers Care Fusion Juncture Grinder Name Role Phone JOSE Montaño Attending Provider Dr. Sanjay Arceo Attending Provider [phone] MD Parag Richards Attending Provider [phone] Dr. Aisha Saavedra Attending Provider [phone] JOSE Montaño Attending Provider Dr. Sanjay Arceo Attending Provider [phone] MD Parag Richards Attending Provider [phone] Dr. Aisha Saavedra Attending Provider [phone] Dr. Aisha Saavedra Primary Care Provider Dr. Ryan Paul Attending Provider [phone] Cristopher Wylie MD Unavailable CRISTOPHER WYLIE Attending Unavailable Dr. Aisha Saavedra MD Primary Care Provider [phone] Dr. Aisha Saavedra MD Attending Provider Dr. Aisha Saavedra MD Referring Provider Dr. Rich Robbins DO Emergency Provider [phone] Sanjay Arceo Attending Unavailable QuentinAisha stewart Referring Unavailable Quentin, Aisha Primary Care Unavailable Quentin, Aisha Primary Care Unavailable Rich Robbins Attending Unavailable [place], Aisha Attending Unavailable Quentin, Aisha Referring Unavailable [place], Aisha Primary Care Unavailable Daniel Saavedraia Attending Unavailable Quentin, Aisha Referring Unavailable [place], Aisha Primary Care Unavailable Quentin, Aisha Attending Unavailable Aisha Saavedra Referring Unavailable Aisha Saavedra Primary Care Unavailable Aisha Saavedra Attending Unavailable Aisha Saavedra Referring Unavailable Aisha Saavedra Primary Care Unavailable Adis ORTEGA, Dr. Grace Attending Provider Allergies Allergy Classification Reported Allergen(s) Allergy Type Date of Onset Reaction(s) Facility (4 sources) Naproxen Drug Allergy 01-30-2025 palpitations [facility] (1 source) Naproxen Drug Allergy 03-09-2025 [facility] Repository Medications Current Medications Medication Drug Class(es) Dates Sig (Normalized) Sig (Original) aspirin 81 mg delayed release oral tablet (10 sources) Platelet Aggregation Inhibitor, Nonsteroidal Anti-inflammatory Drug Start: 08-31-2023 take 1 tablet by mouth once daily Aspirin 81 mg tablet,delayed release (DR/EC) Active 81 mg PO DAILY August 31, 2023 1:00am nitroglycerin 0.3 mg sublingual tablet (5 sources) Nitrate Vasodilator Start: 05-28-2024 Nitroglycerin 0.3 mg tablet, sublingual Active 0.3 mg SL Q5M as needed for chest pain May 28, 2024 12:00am do not exceed 3 doses per episode tamsulosin hydrochloride 0.4 mg oral capsule (5 sources) alpha-Adrenergic Alanis Start: 01-30-2025 take 1 [...] 05, 2024 8:11am August 23, 2024 5:05pm azithromycin 250 mg oral tablet (2 sources) Macrolide Antimicrobial Start: 03-09-2025 End: 03-13-2025 Azithromycin (Zithromax Z-Farzad) 250 mg tablet Discontinued 0 PO .COMPLEX 6 March 09, 2025 12:00am March 13, 2025 10:54am For 250 mg dose pack: take 500 mg today (day 1), then 250 mg for 4 days (days 2-5) 24 hr buPROPion hydrochloride 150 mg extended release oral tablet (12 sources) Aminoketone Start: 12-28-2023 End: 08-01-2024 take 1 tablet by mouth once daily in the morning Bupropion Hcl (Wellbutrin Xl) 150 mg tablet extended release 24 hr Discontinued 150 mg PO EVERY MORNING 90 1 February 08, 2024 11:08am August 01, 2024 10:53am carvedilol 6.25 mg oral tablet (20 sources) alpha-Adrenergic Alanis, beta-Adrenergic Alanis Start: 08-31-2023 End: 03-05-2025 take 1 tablet by mouth twice daily at mealtime Carvedilol 6.25 mg tablet Discontinued 6.25 mg PO TWICE A DAY 180 1 September 18, 2024 1:18pm March 05, 2025 1:11pm must administer with a meal/food cefdinir 300 mg oral capsule (2 sources) Cephalosporin Antibacterial Start: 03-09-2025 End: 03-13-2025 take 1 capsule by mouth twice daily Cefdinir 300 mg capsule Discontinued 300 mg PO TWICE A DAY 14 7 0 March 09, 2025 12:00am March 13, 2025 10:55am clobetasol propionate 0.5 mg/ml medicated shampoo (10 sources) Corticosteroid Start: 09-20-2024 End: 09-27-2024 Clobetasol [...] 2024 1:09am sildenafil 25 mg oral tablet (8 sources) Phosphodiesterase 5 Inhibitor Start: 10-13-2023 End: 11-08-2023 Sildenafil (Viagra) 25 mg tablet Discontinued 25 mg PO DAILY as needed for sexual activity 30 0 October 13, 2023 1:00am November 08, 2023 3:06pm administer 30 minutes to 4 hours before activity tadalafil 5 mg oral tablet (20 sources) Phosphodiesterase 5 Inhibitor Start: 11-08-2023 End: 02-11-2025 take 1 tablet by mouth once daily Tadalafil (Cialis) 5 mg tablet Discontinued 5 mg PO DAILY 90 1 September 18, 2024 1:18pm February 11, 2025 10:14am Problems Problem Classification Problem Date Documented Date Episodic/Chronic Abdominal hernia (4 sources) Unilateral inguinal hernia, without obstruction or gangrene, not specified as recurrent; Translations: [Inguinal hernia, without mention of obstruction or gangrene, unilateral or unspecified (not specified as recurrent)] 10-13-2023 Episodic Administrative/social admission (3 sources) Persons encountering health services in other specified circumstances; Translations: [Other reasons for seeking consultation] 10-13-2023 Episodic Anxiety disorders (6 sources) Mixed anxiety and depressive disorder; Translations: [Anxiety disorder, unspecified] Onset: 01-30-2025 01-30-2025 Chronic Cardiac dysrhythmias (2 sources) Palpitations; Translations: [Palpitations] 03-09-2025 Episodic Coronary atherosclerosis and other heart disease (20 sources) Atherosclerotic heart disease of [place] coronary artery without angina pectoris; Translations: [Coronary atherosclerosis of unspecified type of vessel, [place] or graft] Onset: 02-06-2025 10-13-2023 Chronic Disorders of lipid metabolism (13 sources) Mixed hyperlipidemia; Translations: [Mixed hyperlipidemia] 10-13-2023 Chronic Hyperplasia of prostate (5 sources) Benign prostatic hyperplasia; Translations: [Benign prostatic hyperplasia without lower urinary tract symptoms] Onset: 01-30-2025 01-30-2025 Chronic Immunizations and screening for infectious disease (7 sources) Encounter for immunization; Translations: [Need for prophylactic vaccination and inoculation against unspecified single disease] 10-13-2023 Episodic Miscellaneous mental health disorders (2 sources) 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; 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-01-2024 Chronic Mood disorders (1 source) Mood disorders; Translations: [Depression, unspecified] Onset: 01-30-2025 Other and ill-defined heart disease (3 sources) Heart disease; Translations: [Heart disease, unspecified] 02-25-2025 Chronic Other circulatory disease (5 sources) Elevated blood pressure; Translations: [Elevated blood-pressure reading, without diagnosis of hypertension] 01-30-2025 Episodic Other ear and sense organ disorders (1 source) Unspecified hearing loss, unspecified ear; Translations: [Unspecified hearing loss, unspecified ear] Onset: 08-01-2024 Chronic Other ear and sense organ disorders (5 sources) Tinnitus of vascular origin; Translations: [Pulsatile [...] unspecified] 02-01-2024 Chronic Other male genital disorders (5 sources) Disorder of ejaculation 01-30-2025 Episodic Other screening for suspected conditions (not mental disorders or infectious disease) (3 sources) Encounter for screening for cardiovascular disorders; Translations: [Screening for other and unspecified cardiovascular conditions] 10-13-2023 Episodic Other skin disorders (3 sources) Unspecified skin changes; Translations: [Other symptoms involving skin and integumentary tissues] 10-13-2023 Episodic Pneumonia (except that caused by tuberculosis or sexually transmitted disease) (2 sources) Pneumonia; Translations: [Pneumonia, unspecified organism] 03-09-2025 Episodic Sprains and strains (17 sources) Rupture of extensor tendon of finger; Translations: [Strain of extensor muscle, fascia and tendon of finger, unspecified finger at forearm level, initial encounter] 10-13-2023 Episodic Unclassified (5 sources) I25.10 - Atherosclerotic heart disease of [place] coronary artery without angina pectoris Results Test Name Value Interpretation Reference Range Facility 12 Lead EKGon 03-09-[address] [facility] [address] [place] [address] 12 Lead EKG 03/09/25 0612 MR#: [id number] Acct: [id number] Name: DREA MAX Rep #: [id number] : 1955 69 From: Sanjay Arceo MD Attending Dr: Status: DEP ER Ordering Dr: Rich Robbins DO Date: 03/09/25 Location: ED Sex: M C Admitted: Test Reason : PALPITATIONS Blood Pressure : */* mmHG Vent. Rate : 70 BPM Atrial Rate : 70 BPM P-R Int : 136 ms QRS Dur : 88 ms QT Int : 414 ms P-R-T Axes : 70 50 100 degrees QTcB Int : 447 ms Normal sinus rhythm Nonspecific ST and T wave abnormality Abnormal ECG Confirmed by SANJAY ARCEO MD ([id number]), editor city ALIS FISCHER ([id number]) on 03/11/2025 7:28:20 AM Referred By: SIXTO Confirmed By: SANJAY ARCEO MD 03/11/25727 Date Sanjay Arceo MD CC: Dr. Aisha Saavedra MD; Rich Robbins DO Signed Normal [facility] Absolute lymphocyte countOrd ered By: Rich Robbins on 03-09-2025 Lymphocytes Auto (Unsp spec) [#/Vol] 2.76 10*3/uL 0.83-4.51 [facility] Absolute neutrophil countOrd ered By: Rich Robbins on 03-09-2025 Neutrophils (Bld) [#/Vol] 9.8 10*3/uL High 2.0-7.7 [facility] Anion gap in Serum or Plasma Ordered By: Rich Robbins on 03-09-2025 Anion gap [Moles/Vol] 13 mmol/L 5-15 [facility] Automated lymphocyte count a s percentage of total leukocytesOrdered By: Rich Robbins on 03-09-2025 Lymphocytes/100 WBC Auto (Unsp spec) 20.0 % 19-41 [facility] BUN/creatinine ratioOrdered By: Rich Robbins on 03-09-2025 Urea nitrogen/Creatinine [Mass ratio] 11.4 mg/mg 10-20 [facility] Basic Metabolic Profile (BMP )on 03-09-2025 BUN/CRE 11.4 RATIO Normal 10-20 [facility] Comment on above: Performed By: #### L 500.2500, L501.9520, L100.0100, L501.4021, L501.5200, L300.8000 ####[facility] [address] [place], [address] Calcium [Mass/Vol] 9.4 mg/dL Normal 7.6-11.0 [facility] Comment on above: Performed By: #### L 500.2500, L501.9520, L100.0100, L501.4021, L501.5200, L300.8000 ####[facility] [address] [place], [address] Chloride [Moles/Vol] 103 mmol/L Normal 98-108 [facility] Comment on above: Performed By: #### L 500.2500, L501.9520, L100.0100, L501.4021, L501.5200, L300.8000 ####[facility] [address] [place], [address] CO2 [Moles/Vol] 21.6 mmol/L Normal 21.0-32.0 [facility] Comment on above: Performed By: #### L 500.2500, L501.9520, L100.0100, L501.4021, L501.5200, L300.8000 ####[facility] [address] [place], [address] Creatinine [Mass/Vol] 0.84 mg/dL Normal 0.70-1.20 [facility] Comment on above: Performed By: #### L 500.2500, L501.9520, L100.0100, L501.4021, L501.5200, L300.8000 ####[facility] [address] [place], [address] ECRCL 91.10 ml/min Normal 50-250 [facility] Comment on above: Performed By: #### L 500.2500, L501.9520, L100.0100, L501.4021, L501.5200, L300.8000 ####[facility] [address] [place], [address] GAP 13 Normal 5-15 [facility] Comment on above: Performed By: #### L 500.2500, L501.9520, L100.0100, L501.4021, L501.5200, L300.8000 ####[facility] [address] [place], [address] GFR/1.73 sq M.predicted among non-blacks MDRD (S/P/Bld) [Vol rate/Area] 95 mL/min/{1.73_m2} Normal >60 [facility] Comment on above: Result Comment: mL/m in/1.73m2 CKD-EPI Creatinine Equation (2020) Performed By: #### L 500.2500, L501.9520, L100.0100, L501.4021, L501.5200, L300.8000 ####[facility] [address] [place], [address] Glucose [Mass/Vol] 130 mg/dL High 70-99 [facility] Comment on above: Performed By: #### L 500.2500, L501.9520, L100.0100, L501.4021, L501.5200, L300.8000 ####[facility] [address] [place], [address] Potassium [Moles/Vol] 4.0 mmol/L Normal 3.3-5.1 [facility] Comment on above: Performed By: #### L 500.2500, L501.9520, L100.0100, L501.4021, L501.5200, L300.8000 ####[facility] [address] [place], [address] Sodium [Moles/Vol] 137 mmol/L Normal 133-145 [facility] Comment on above: Performed By: #### L 500.2500, L501.9520, L100.0100, L501.4021, L501.5200, L300.8000 ####[facility] [address] [place], [address] Urea nitrogen [Mass/Vol] 10 mg/dL Normal 4-19 [facility] Comment on above: Performed By: #### L 500.2500, L501.9520, L100.0100, L501.4021, L501.5200, L300.8000 ####[facility] [address] [place], [address] Basophil percentageOrdered B y: Rich Robbins on 03-09-2025 Basophils/100 WBC (Bld) 0.4 % 0-1 [facility] CBC W/Diff, Automatedon 02-13 Hemoglobin (Bld) [Mass/Vol] 18.5 g/dL Invalid Interpretation Code 13.0-16.5 [facility] Comment on above: Result Comment: CRIT ICAL VALUE CALLED TO CHRISTIAN WISE 03/09/25 0642 Gregg Gutierrez. RESULTS READ BACK BY SAME. Performed By: #### L 500.2500, L501.9520, L100.0100, L501.4021, L501.5200, L300.8000 #### [facility] [address] [place], [address] Absolute Lymph 2.76 X10 3/uL Normal 0.83-4.51 [facility] Comment on above: Performed By: #### L 500.2500, L501.9520, L100.0100, L501.4021, L501.5200, L300.8000 #### [facility] [address] [place], [address] Absolute Neut 9.8 X10 3/uL High 2.0-7.7 [facility] Comment on above: Performed By: #### L 500.2500, L501.9520, L100.0100, L501.4021, L501.5200, L300.8000 #### [facility] [address] [place], [address] Basophils/100 WBC (Bld) 0.4 % Normal 0-1 [facility] Comment on above: Performed By: #### L 500.2500, L501.9520, L100.0100, L501.4021, L501.5200, L300.8000 #### [facility] [address] [place], [address] Eosinophils/100 WBC (Bld) 0.4 % Normal 0-5 [facility] Comment on above: Performed By: #### L 500.2500, L501.9520, L100.0100, L501.4021, L501.5200, L300.8000 #### [facility] [address] [place], [address] Erythrocyte distribution width (RBC) [Ratio] 12.9 % Normal 11.6-14.6 [facility] Comment on above: Performed By: #### L 500.2500, L501.9520, L100.0100, L501.4021, L501.5200, L300.8000 #### [facility] [address] [place], [place], [facility] Hematocrit (Bld) [Volume fraction] 54.2 % High 40-54 [facility] Comment on above: Performed By: #### L 500.2500, L501.9520, L100.0100, L501.4021, L501.5200, L300.8000 #### [facility] [address] [place], [address] IG% 0.400 Normal 0.0-0.9 [facility] Comment on above: Result Comment: IG% - Immature Granulocytes (promyelocytes, myelocytes and metamyelocytes) > 1% indicates that a LEFT SHIFT is Present. Performed By: #### L 500.2500, L501.9520, L100.0100, L501.4021, L501.5200, L300.8000 #### [facility] [address] [place], [address] Lymphocytes/100 WBC (Bld) 20.0 % Normal 19-41 [facility] Comment on above: Performed By: #### L 500.2500, L501.9520, L100.0100, L501.4021, L501.5200, L300.8000 #### [facility] [address] [place], [address] MCH (RBC) [Entitic mass] 32.1 pg High 27.0-32.0 [facility] Comment on above: Performed By: #### L 500.2500, L501.9520, L100.0100, L501.4021, L501.5200, L300.8000 #### [facility] [address] [place], [address] MCHC (RBC) [Mass/Vol] 34.1 g/dL Normal 32-36 [facility] Comment on above: Performed By: #### L 500.2500, L501.9520, L100.0100, L501.4021, L501.5200, L300.8000 #### [facility] [address] [place], [address] MCV (RBC) [Entitic vol] 94.1 fL High 80-94 [facility] Comment on above: Performed By: #### L 500.2500, L501.9520, L100.0100, L501.4021, L501.5200, L300.8000 #### [facility] [address] [place], [address] Monocytes/100 WBC (Bld) 8.1 % Normal 0-10 [facility] Comment on above: Performed By: #### L 500.2500, L501.9520, L100.0100, L501.4021, L501.5200, L300.8000 #### [facility] [address] [place], [address] Neutrophils/100 WBC (Bld) 70.7 % High 47-70 [facility] Comment on above: Performed By: #### L 500.2500, L501.9520, L100.0100, L501.4021, L501.5200, L300.8000 #### [facility] [address] [place], [address] Nucleated RBC (Bld) [#/Vol] 0 10*3/uL Normal 0-5 [facility] Comment on above: Performed By: #### L 500.2500, L501.9520, L100.0100, L501.4021, L501.5200, L300.8000 #### [facility] [address] [place], [address] Platelet mean volume (Bld) [Entitic vol] 10.9 fL Normal 6.2-12.0 [facility] Comment on above: Performed By: #### L 500.2500, L501.9520, L100.0100, L501.4021, L501.5200, L300.8000 #### [facility] [address] [place], [address] Platelets (Bld) [#/Vol] 276 10*3/uL Normal 150-450 [facility] Comment on above: Performed By: #### L 500.2500, L501.9520, L100.0100, L501.4021, L501.5200, L300.8000 #### [facility] [address] [place], [address] RBC (Bld) [#/Vol] 5.76 10*6/uL Normal 4.6-6.[address] [facility] Comment on above: Performed By: #### L 500.2500, L501.9520, L100.0100, L501.4021, L501.5200, L300.8000 #### [facility] [address] [place], [address] RDW SD 44.2 fl High 35.1-43.9 [facility] Comment on above: Performed By: #### L 500.2500, L501.9520, L100.0100, L501.4021, L501.5200, L300.8000 #### [facility] [address] [place], [address] WBC (Bld) [#/Vol] 13.8 10*3/uL High 4.4-11.[address] [facility] Comment on above: Performed By: #### L 500.2500, L501.9520, L100.0100, L501.4021, L501.5200, L300.8000 #### [facility] [address] [place], [address] Carbon dioxide, total [Moles /volume] in Central venous bloodOrdered By: Rich Robbins on 03-09-2025 CO2 [Moles/Vol] 21.6 mmol/L 21.0-32.0 [facility] Chest PA and Lateralon 03-[address] [facility] Imaging Services [address] [place] [address] Chest PA and Lateral MR#: [id number] Acct: [id number] Name: DREA MAX Rep #: [id number] : 1955 M 69 From: Lisa Serra MD PCP: Dr. Aisha Saavedra MD Status: [facility] ER Study: Chest PA and Lateral Date of Exam: 03/09/25 Exam# [id number] Ordering Dr: Rich Robbins DO PROCEDURE: CHEST PA AND LATERAL 03/09/2025 REASON FOR EXAM: PALPITATIONS TECHNIQUE: CHEST PA AND LATERAL COMPARISON: None. FINDINGS: Hardware: Monitor electrodes overlie the chest. Heart: No cardiomegaly. Mediastinum: Unremarkable. Lungs: Interstitial densities in the lower lungs concerning for pulmonary edema or pneumonia. No pleural effusion or pneumothorax. Bones: No acute bony abnormalities. RAD/Chest PA and Lateral IMPRESSION: Interstitial densities in the lower lungs concerning for pulmonary edema or pneumonia. No pleural effusion or pneumothorax. Reading Location: [facility] CC: Dr. Aisha Saavedra MD; Rich Robbins DO Sales And Marketing Vice President: Signed Normal [facility] Chloride assayOrdered By: Arabella Robbins on 03-09-2025 Chloride [Moles/Vol] 103 mmol/L 98-108 [facility] D-Dimer Quantitative (DVT/PE )on 03-09-2025 D-DIMER QUANT 0.34 FEU/ug/m Normal 0.27-0.49 [facility] Comment on above: Result Comment: NORM AL D-Dimer level (<0.50) indicates no DVT or PE. Performed By: #### L 500.2500, L501.9520, L100.0100, L501.4021, L501.5200, L300.8000 ####[facility] [address] [place], [address] Emergency Department Summary on 03-09-2025 Emergency Department Summary [facility] Medical Records Department [address] [place] [address] Emergency Department Summary 03/09/25 MR#: [id number] Acct: [id number] Name: DREA MAX Rep #: [id number] : 1955 69 From: Rich Robbins DO PCP: Dr. Aisha Saavedra MD Status:REG ER Location: ED HPI History of Present Illness Chief Complaint: Palpitations Informant: patient Narrative Narrative: Patient is a 69-year-old male with past medical history of hyperlipidemia and coronary artery disease requiring stent placement 12 years ago. He states that over the past few weeks he would have bouts of palpitations which she describes as irregular and fast. He also states that he has had a few episodes where he sweats profusely and has bouts of nausea and vomiting. He reports the most recent bout of diaphoresis and nausea and vomiting was roughly 1 week ago after mowing the yard. He states there was no chest pain associated with it but the symptoms concerned him for cardiovascular disease. He states he has an appointment set up with the service sprinkler helper Dr. Arceo next week. He states however that 4 times throughout the night starting from approximately 9 or 10 PM with the last 1 being around 5 AM his watch went off alerting him to palpitations concerning for A- fib. He states that it did feel fast and irregular but it only lasted for a few minutes and resolved. He denies any history of excessive stimulant use or illicit drug use. He states as his symptoms have been recurrent throughout the night he presents for evaluation [facility] Medical History Mixed hyperlipidemia Hx of myocardial infarction Atherosclerosis of coronary artery of [place] heart without angina pectoris Skin cancer Heart disease Hearing problem Bone fracture Home Medications ???Medication ???Instructions ???Recorded ???Last Taken ???Type aspirin 81 mg tablet,delayed 81 mg PO DAILY 08/31/23 Unknown Hi story release nitroglycerin 0.3 mg sublingual 0.3 mg sublingual Q5M PRN chest Unknown Rx tablet pain #30 tabs atorvastatin 40 mg tablet 40 mg PO DAILY #90 tabs 08/23/24 U nknown Rx tamsulosin 0.4 mg capsule (Flomax) 0.4 mg PO QHS #30 caps 01/30/25 Unknown Rx tadalafil 5 mg tablet (Cialis) 5 mg PO DAILY #90 tabs 02/11/25 Un known Rx carvedilol 6.25 mg tablet 6.25 mg PO BID #180 tabs 03/05/25 Unknown Rx azithromycin 250 mg tablet See Rx Instructions PO .COMPLEX #6 03/09/25 Unknown Rx (Zithromax Z-Farzad) tabs cefdinir 300 mg capsule 300 mg PO BID 7 days #14 caps 02/13 02/06 Unknown Rx Allergy/AdvReac Type Severity Reaction Status Date / Time naproxen (From Aleve) AdvReac palpitation Verified 03/09/25 05:59 s Family History (Updated 02/25/25 @ 10:50 by Angeles Martinez RN) Father Cancer, Onset Age: 80 leukemia Hypertension Aunt CAD (coronary artery disease) Uncle CAD (coronary artery disease) Sister Hypertension Surgical History History of banding of hemorrhoid History of ankle surgery H/O rhinoplasty H/O heart artery stent Social History (Updated 01/30/25 @ 09:[address] Aisha Saavedra MD) household members: significant other housing: house current occupational status: retired current occupation: worked in [employer] Smoking Status: Former smoker quit date: 08/15/15 pack-years: 40 Electronic Cigarette Use: not used alcohol intake: current alcohol intake frequency: a few times a month Alcohol type: hard liquor substance use type: marijuana what type of physical activity do you participate in: walking seatbelt use: always do you feel safe at home: Yes ROS ROS ED Constitutional Constitutional ED: Reports sweats; Denies chills or fever(s) Eyes Eyes: Denies change in vision ENT ENT ED: Denies sore throat Cardiovascular Cardiovascular: Reports palpitations and racing heartbeat; Denies chest pain Respiratory/Chest Respiratory/Chest: Denies cough or dyspnea Gastrointestinal Gastrointestinal: Reports nausea and vomiting; Denies abdominal pain or diarrhea Musculoskeletal Musculoskeletal: Denies back pain Integumentary Denies rash Neurologic Neurologic: Denies headache(s) Psychiatric Psychiatric: Reports anxiety Hematologic/Lymphat ic Hematologic/Lymphat ic: Denies easy bleeding or easy bruising EXAM Physical Exam Const Vital Signs: 03/09/25 05:59 03/09/25 06:01 03/09/25 07:00 Temperature 97.5 F L Temperature Source Oral Pulse Rate 76 68 Respiratory Rate 14 18 Respiratory Effort Normal Non-Labored Respiratory Pattern Normal Blood Pressure 132/87 H 126/87 H Blood Pressure Mean 102 100 Pulse Ox 99 98 Oxygen Delivery Method Room Air Room Air Positive well nourished (more content not included)... Normal [facility] Eosinophil percentageOrdered By: Rich Robbins on 03-09-2025 Eosinophils/100 WBC (Bld) 0.4 % 0-5 [facility] Erythrocyte distribution wid th ratioOrdered By: Rich Robbins on 03-09-2025 Erythrocyte distribution width (RBC) [Ratio] 12.9 % 11.6-14.6 [facility] Erythrocyte distribution wid th standard deviationOrdered By: Rich Robbins on 03-09-2025 Erythrocyte distribution width (RBC) [Ratio] 44.2 fl High 35.1-43.9 [facility] Glomerular filtration rate ( GFR) estimation/1.73 sq m using serum, plasma, or whole bOrdered By: Rich Robbins on 03-09-2025 GFR/1.73 sq M.predicted among non-blacks MDRD (S/P/Bld) [Vol rate/Area] 95 mL/min/{1.73_m2} >60 [facility] Comment on above: mL/min/1.73m2 CKD-EP I Creatinine Equation (2020) Hematocrit Auto (Bld) [Volum e fraction]Ordered By: Rich Robbins on 03-09-2025 Hematocrit (Bld) [Volume fraction] 54.2 % High 40-54 [facility] Hemoglobin measurementOrdere d By: Rich Robbins on 03-09-2025 Hemoglobin (Bld) [Mass/Vol] 18.5 g/dL High 13.0-16.5 [facility] Comment on above: CRITICAL VALUE [place]BELL D TO CHRISTIAN DWPYSPR36/26/25 0642 Gregg Gutierrez.RESULTS READ BACK BY SAME. Immature granulocytes/100 WB C Auto (Bld)Ordered By: Rich Robbins on 03-09-2025 Immature granulocytes/100 WBC (Bld) 0.400 % 0.0-0.9 [facility] Comment on above: IG% - Immature Granu locytes (promyelocytes, myelocytes and metamyelocytes) > 1% indicates that a LEFT SHIFT is Present. L501.4021on 03-09-2025 Trop T High Sen 16 ng/L Normal <=22 [facility] Comment on above: Performed By: #### L 500.2500, L501.9520, L100.0100, L501.4021, L501.5200, L300.8000 ####[facility] [address] [place], [place], [id number] MCV (mean corpuscular volume ) determinationOrdered By: Rich Robbins on 03-09-2025 MCV (RBC) [Entitic vol] 94.1 fL High 80-94 [facility] Magnesiumon 03-09-2025 Magnesium [Mass/Vol] 2.3 mg/dL High 1.5-2.2 [facility] Comment on above: Performed By: #### L 500.2500, L501.9520, L100.0100, L501.4021, L501.5200, L300.8000 ####[facility] [address] [place], [address] Magnesium measurement (mass/ volume)Ordered By: Rcih Robbins on 03-09-2025 Magnesium (Unsp spec) [Mass/Vol] 2.3 mg/dL High 1.5-2.2 [facility] Mean corpuscular hemoglobin (MCH) determinationOrdered By: Rich Robbins on 03-09-2025 MCH (RBC) [Entitic mass] 32.1 pg High 27.0-32.0 [facility] Mean corpuscular hemoglobin concentration (MCHC) determinationOrdered By: Rich Robbins on 03-09-2025 MCHC (RBC) [Mass/Vol] 34.1 g/dL 32-36 [facility] Mean platelet volume determi nationOrdered By: Rich Robbins on 03-09-2025 Platelet mean volume (Bld) [Entitic vol] 10.9 fL 6.2-12.0 [facility] Monocyte percentageOrdered B y: Rich Robbins on 03-09-2025 Monocytes/100 WBC (Bld) 8.1 % 0-10 [facility] Neutrophil percentageOrdered By: Rich Robbins on 03-09-2025 Neutrophils/100 WBC (Bld) 70.7 % High 47-70 [facility] Nucleated red blood cell per centageOrdered By: Rich Robbins on 03-09-2025 Nucleated RBC/100 WBC (Bld) [Ratio] 0 % 0-5 [facility] Platelet countOrdered By: Arabella Robbins on 03-09-2025 Platelets (Bld) [#/Vol] 276 10*3/uL 150-450 [facility] Potassium measurement (mass/ volume)Ordered By: Rich Robbins on 03-09-2025 Potassium (Unsp spec) [Mass/Vol] 4.0 mmol/L 3.3-5.1 [facility] RBC Auto (Bld) [#/Vol]Ordere d By: Rich Robbins on 03-09-2025 RBC (Bld) [#/Vol] 5.76 10*6/uL 4.6-6.[address] [facility] Serum creatinine measurement (mass/volume)Ordered By: Rich Robbins on 03-09-2025 Creatinine [Mass/Vol] 0.84 mg/dL 0.70-1.20 [facility] Serum glucose measurement (m ass/volume)Ordered By: Rich Robbins on 03-09-2025 Glucose [Mass/Vol] 130 mg/dL High 70-99 [facility] Serum or plasma calcium marlee urement (mass/volume)Ordered By: Rich Robbins on 03-09-2025 Calcium [Mass/Vol] 9.4 mg/dL 7.6-11.0 [facility] Serum or plasma urea nitroge n measurement (mass/volume)Ordered By: Rich Robbins on 03-09-2025 Urea nitrogen [Mass/Vol] 10 mg/dL 4-19 [facility] Sodium levelOrdered By: Abel Robbins on 03-09-2025 Sodium [Moles/Vol] 137 mmol/L 133-145 [facility] TSH DL <= 0.005 mIU/L QnOrde red By: Rich Robbins on 03-09-2025 TSH Qn 2.680 uIU/mL 0.300-4.200 [facility] Thyroid Stim Hormone (TSH)on 03-09-2025 TSH 2.680 uIU/mL Normal 0.300-4.200 [facility] Comment on above: Performed By: #### L 500.2500, L501.9520, L100.0100, L501.4021, L501.5200, L300.8000 ####[facility] [address] [place], [address] Troponin T HS 2 HRon 025 Trop T High Sen Normal <=22 [facility] Comment on above: Result Comment: Canlorraine ellsandra via OM: Ordered Performed By: #### L 499.0042 ####[facility] [address] [place], [place], [address] Troponin T.cardiac [Mass/vol ume] in Serum or Plasma by High sensitivity methodOrdered By: Rich Robbins on 03-09-2025 Troponin T.cardiac High sensitivity method [Mass/Vol] 16 ng/L <22 [facility] White blood cell (WBC) count Ordered By: Rich Robbins on 03-09-2025 WBC (Bld) [#/Vol] 13.8 10*3/uL High 4.4-11.[address] [facility] Magnetic resonance imaging r eportOrdered By: James Nj on 02-23-[address] [facility] Imaging Services [address] [place] [address] Brain W/WO Contrast MR#: [id number] Acct: [id number] Name: DREA MAX Rep #: [id number] : 1955 M 69 From: Lynn Nj MD PCP: Dr. Aisha Saavedra MD Status: REG CLI Study:Brain W/WO Contrast Date of Exam: 02/21/25 Exam# [id number] Ordering Dr: Aisha Saavedra MD PROCEDURE: BRAIN [...] IMPRESSION: No etiology for tinnitus. Reading Location: [facility] CC: Dr. Aisha Saavedra MD ~ Sales And Marketing Vice President: Signed [facility] Brain W/WO Contraston 2024 Brain W/WO Contrast [facility] Services [address] [place] [address] Brain W/WO Contrast MR#: [id number] Acct: [id number] Name: DREA MAX Rep #: [id number] : 1955 M 69 From: James Nj MD PCP: Dr. Aisha Saavedra MD Status: REG CLI Study: Brain W/WO Contrast Date of Exam: 02/21/25 Exam# [id number] Ordering Dr: Aisha Saavedra MD PROCEDURE: BRAIN [...] IMPRESSION: No etiology for tinnitus. Reading Location: [facility] CC: Dr. Aisha Saavedra MD Sales And Marketing Vice President: Signed Normal [facility] Absolute lymphocyte countOrd ered By: Aisha Saavedra on 01-30-2025 Lymphocytes Auto (Unsp spec) [#/Vol] 2.22 10*3/uL 0.83-4.51 [facility] Absolute neutrophil countOrd ered By: Aisha Saavedra on 01-30-2025 Neutrophils (Bld) [#/Vol] 4.9 10*3/uL 2.0-7.7 [facility] Anion gap in Serum or Plasma Ordered By: Aisha Saavedra on 01-30-2025 Anion gap [Moles/Vol] 9 mmol/L 5-15 [facility] Automated lymphocyte count a s percentage of total leukocytesOrdered By: Aisha Saavedra on 01-30-2025 Lymphocytes/100 WBC Auto (Unsp spec) 27.1 % 19-41 [facility] BUN/creatinine ratioOrdered By: Aisha Saavedra on 01-30-2025 Urea nitrogen/Creatinine [Mass ratio] 21.1 mg/mg High 10-20 [facility] Basophil percentageOrdered B y: Aisha Saavedra on 01-30-2025 Basophils/100 WBC (Bld) 0.5 % 0-1 [facility] Bilirubin, totalOrdered By: Aisha Saavedra on 01-30-2025 Bilirubin [Mass/Vol] 0.52 mg/dL 0.00-1.30 [facility] CBC W/Diff, Automatedon 01-13 Absolute Lymph 2.22 X10 3/uL Normal 0.83-4.51 [facility] Comment on above: Performed By: #### L 100.0100, L501.9940, L500.4050, L500.4100 #### [facility] [address] [place], [address] Absolute Neut 4.9 X10 3/uL Normal 2.0-7.7 [facility] Comment on above: Performed By: #### L 100.0100, L501.9940, L500.4050, L500.4100 #### [facility] [address] [place], [address] Basophils/100 WBC (Bld) 0.5 % Normal 0-1 [facility] Comment on above: Performed By: #### L 100.0100, L501.9940, L500.4050, L500.4100 #### [facility] [address] [place], [address] Eosinophils/100 WBC (Bld) 2.0 % Normal 0-5 [facility] Comment on above: Performed By: #### L 100.0100, L501.9940, L500.4050, L500.4100 #### [facility] [address] [place], [address] Erythrocyte distribution width (RBC) [Ratio] 13.0 % Normal 11.6-14.6 [facility] Comment on above: Performed By: #### L 100.0100, L501.9940, L500.4050, L500.4100 #### [facility] [address] [place], [address] Hematocrit (Bld) [Volume fraction] 47.6 % Normal 40-54 [facility] Comment on above: Performed By: #### L 100.0100, L501.9940, L500.4050, L500.4100 #### [facility] [address] [place], [address] Hemoglobin (Bld) [Mass/Vol] 15.9 g/dL Normal 13.0-16.5 [facility] Comment on above: Performed By: #### L 100.0100, L501.9940, L500.4050, L500.4100 #### [facility] [address] [place], [address] IG% 0.200 Normal 0.0-0.9 [facility] Comment on above: Result Comment: IG% - Immature Granulocytes (promyelocytes, myelocytes and metamyelocytes) > 1% indicates that a LEFT SHIFT is Present. Performed By: #### L 100.0100, L501.9940, L500.4050, L500.4100 #### [facility] [address] [place], [address] Lymphocytes/100 WBC (Bld) 27.1 % Normal 19-41 [facility] Comment on above: Performed By: #### L 100.0100, L501.9940, L500.4050, L500.4100 #### [facility] [address] [place], [address] MCH (RBC) [Entitic mass] 31.5 pg Normal 27.0-32.0 [facility] Comment on above: Performed By: #### L 100.0100, L501.9940, L500.4050, L500.4100 #### [facility] [address] [place], [address] MCHC (RBC) [Mass/Vol] 33.4 g/dL Normal 32-36 [facility] Comment on above: Performed By: #### L 100.0100, L501.9940, L500.4050, L500.4100 #### [facility] [address] [place], [address] MCV (RBC) [Entitic vol] 94.3 fL High 80-94 [facility] Comment on above: Performed By: #### L 100.0100, L501.9940, L500.4050, L500.4100 #### [facility] [address] [place], [address] Monocytes/100 WBC (Bld) 10.5 % High 0-10 [facility] Comment on above: Performed By: #### L 100.0100, L501.9940, L500.4050, L500.4100 #### [facility] [address] [place], [address] Neutrophils/100 WBC (Bld) 59.7 % Normal 47-70 [facility] Comment on above: Performed By: #### L 100.0100, L501.9940, L500.4050, L500.4100 #### [facility] [address] [place], [address] Nucleated RBC (Bld) [#/Vol] 0 10*3/uL Normal 0-5 [facility] Comment on above: Performed By: #### L 100.0100, L501.9940, L500.4050, L500.4100 #### [facility] [address] [place], [address] Platelet mean volume (Bld) [Entitic vol] 11.3 fL Normal 6.2-12.0 [facility] Comment on above: Performed By: #### L 100.0100, L501.9940, L500.4050, L500.4100 #### [facility] [address] [place], [address] Platelets (Bld) [#/Vol] 251 10*3/uL Normal 150-450 [facility] Comment on above: Performed By: #### L 100.0100, L501.9940, L500.4050, L500.4100 #### [facility] [address] [place], [address] RBC (Bld) [#/Vol] 5.05 10*6/uL Normal 4.6-6.[address] [facility] Comment on above: Performed By: #### L 100.0100, L501.9940, L500.4050, L500.4100 #### [facility] [address] [place], [address] RDW SD 44.9 fl High 35.1-43.9 [facility] Comment on above: Performed By: #### L 100.0100, L501.9940, L500.4050, L500.4100 #### [facility] [address] [place], [address] WBC (Bld) [#/Vol] 8.2 10*3/uL Normal 4.4-11.0 [facility] Comment on above: Performed By: #### L 100.0100, L501.9940, L500.4050, L500.4100 #### [facility] [address] [place], [address] Calculated very low density lipoprotein (VLDL) cholesterol measurementOrdered By: Aisha Saavedra on 01-30-2025 Calculated very low density lipoprotein (VLDL) cholesterol measurement 18 mg/dL 5-40 [facility] Carbon dioxide, total [Moles /volume] in Central venous bloodOrdered By: Aisha Saavedra on 01-30-2025 CO2 [Moles/Vol] 23.8 mmol/L 21.0-32.0 [facility] Chloride assayOrdered By: Joe Saavedra on 01-30-2025 Chloride [Moles/Vol] 107 mmol/L 98-108 [facility] Comprehensive Metabolic Prof ilon 01-30-2025 Albumin [Mass/Vol] 4.2 g/dL Normal 3.4-4.8 [facility] Comment on above: Performed By: #### L 100.0100, L501.9940, L500.4050, L500.4100 #### [facility] [address] [place], [address] Albumin/Globulin [Mass ratio] 1.5 {ratio} Normal 0.9-2.4 [facility] Comment on above: Performed By: #### L 100.0100, L501.9940, L500.4050, L500.4100 #### [facility] [address] [place], [address] ALK PHOS 95 U/L Normal 40-129 [facility] Comment on above: Performed By: #### L 100.0100, L501.9940, L500.4050, L500.4100 #### [facility] [address] [place], [address] ALT [Catalytic activity/Vol] 13 U/L Normal <=46 [facility] Comment on above: Performed By: #### L 100.0100, L501.9940, L500.4050, L500.4100 #### [facility] [address] [place], [address] AST [Catalytic activity/Vol] 16 U/L Normal <=37 [facility] Comment on above: Performed By: #### L 100.0100, L501.9940, L500.4050, L500.4100 #### [facility] [address] [place], [address] Bilirubin [Mass/Vol] 0.52 mg/dL Normal 0.00-1.30 [facility] Comment on above: Performed By: #### L 100.0100, L501.9940, L500.4050, L500.4100 #### [facility] [address] [place], [address] BUN/CRE 21.1 RATIO High 10-20 [facility] Comment on above: Performed By: #### L 100.0100, L501.9940, L500.4050, L500.4100 #### [facility] [address] [place], [address] Calcium [Mass/Vol] 9.7 mg/dL Normal 7.6-11.0 [facility] Comment on above: Performed By: #### L 100.0100, L501.9940, L500.4050, L500.4100 #### [facility] [address] [place], [address] Chloride [Moles/Vol] 107 mmol/L Normal 98-108 [facility] Comment on above: Performed By: #### L 100.0100, L501.9940, L500.4050, L500.4100 #### [facility] [address] [place], [address] CO2 [Moles/Vol] 23.8 mmol/L Normal 21.0-32.0 [facility] Comment on above: Performed By: #### L 100.0100, L501.9940, L500.4050, L500.4100 #### [facility] [address] [place], [address] Creatinine [Mass/Vol] 0.81 mg/dL Normal 0.70-1.20 [facility] Comment on above: Performed By: #### L 100.0100, L501.9940, L500.4050, L500.4100 #### [facility] [address] [place], [address] GAP 9 Normal 5-15 [facility] Comment on above: Performed By: #### L 100.0100, L501.9940, L500.4050, L500.4100 #### [facility] [address] [place], [address] GFR/1.73 sq M.predicted among non-blacks MDRD (S/P/Bld) [Vol rate/Area] 96 mL/min/{1.73_m2} Normal >60 [facility] Comment on above: Result Comment: mL/m in/1.73m2 CKD-EPI Creatinine Equation (2020) Performed By: #### L 100.0100, L501.9940, L500.4050, L500.4100 #### [facility] [address] [place], [address] Globulin (S) [Mass/Vol] 2.8 g/dL Normal 2.2-4.2 [facility] Comment on above: Performed By: #### L 100.0100, L501.9940, L500.4050, L500.4100 #### [facility] [address] [place], [address] Glucose [Mass/Vol] 97 mg/dL Normal 70-99 [facility] Comment on above: Performed By: #### L 100.0100, L501.9940, L500.4050, L500.4100 #### [facility] [address] [place], [address] Potassium [Moles/Vol] 4.5 mmol/L Normal 3.3-5.1 [facility] Comment on above: Performed By: #### L 100.0100, L501.9940, L500.4050, L500.4100 #### [facility] [address] [place], [address] Sodium [Moles/Vol] 140 mmol/L Normal 133-145 [facility] Comment on above: Performed By: #### L 100.0100, L501.9940, L500.4050, L500.4100 #### [facility] [address] [place], [address] T PROT 7.0 g/dL Normal 5.9-8.4 [facility] Comment on above: Performed By: #### L 100.0100, L501.9940, L500.4050, L500.4100 #### [facility] [address] [place], [address] Urea nitrogen [Mass/Vol] 17 mg/dL Normal 4-19 [facility] Comment on above: Performed By: #### L 100.0100, L501.9940, L500.4050, L500.4100 #### [facility] [address] [place], [address] Eosinophil percentageOrdered By: Aisha Saavedra on 01-30-2025 Eosinophils/100 WBC (Bld) 2.0 % 0-5 [facility] Erythrocyte distribution wid th ratioOrdered By: Aisha Saavedra on 01-30-2025 Erythrocyte distribution width (RBC) [Ratio] 13.0 % 11.6-14.6 [facility] Erythrocyte distribution wid th standard deviationOrdered By: Aisha Saavedra on 01-30-2025 Erythrocyte distribution width (RBC) [Ratio] 44.9 fl High 35.1-43.9 [facility] Glomerular filtration rate ( GFR) estimation/1.73 sq m using serum, plasma, or whole bOrdered By: Aisha Saavedra on 01-30-2025 GFR/1.73 sq M.predicted among non-blacks MDRD (S/P/Bld) [Vol rate/Area] 96 mL/min/{1.73_m2} >60 [facility] Comment on above: mL/min/1.73m2 CKD-EP I Creatinine Equation (2020) Hematocrit Auto (Bld) [Volum e fraction]Ordered By: Aisha Saavedra on 01-30-2025 Hematocrit (Bld) [Volume fraction] 47.6 % 40-54 [facility] Hemoglobin measurementOrdere d By: Aisha Saavedra on 01-30-2025 Hemoglobin (Bld) [Mass/Vol] 15.9 g/dL 13.0-16.5 [facility] Immature granulocytes/100 WB C Auto (Bld)Ordered By: Aisha Saavedra on 01-30-2025 Immature granulocytes/100 WBC (Bld) 0.200 % 0.0-0.9 [facility] Comment on above: IG% - Immature Granu locytes (promyelocytes, myelocytes and metamyelocytes) > 1% indicates that a LEFT SHIFT is Present. LDL calc ser/plasOrdered By: Aisha Saavedra on 01-30-2025 Cholesterol in LDL [Mass/Vol] 67 mg/dL [facility] Comment on above: Mawkhhtizo=562-396 m g/dL & Higher Nxgc=940 mg/dL or greater Laboratory - Chemistry and C hemistry - challengeOrdered By: Aisha Saavedra on 01-30-2025 AST [Catalytic activity/Vol] 16 U/L <38 [facility] Lipid Profileon 01-30-2025 CHOL:HDL 2.79 Normal [facility] Comment on above: Performed By: #### L 100.0100, L501.9940, L500.4050, L500.4100 #### [facility] [address] [place], [address] Cholesterol [Mass/Vol] 133 mg/dL Normal <=200 [facility] Comment on above: Result Comment: Chol esterol level, Desirable <200 mg/dL Borderline high cholesterol 200-239 mg/dL High cholesterol >=240 mg/dL Recommendations of the NCEP Adult Treatment Panel for the following risk-cutoff thresholds for the [place] population. Performed By: #### L 100.0100, L501.9940, L500.4050, L500.4100 #### [facility] [address] [place], [address] Cholesterol in HDL [Mass/Vol] 48 mg/dL Normal [facility] Comment on above: Result Comment: Lisa onal Cholesterol Education Program (NCEP) guidelines: <40 mg/dL: Low HDL-cholesterol (major risk factor for CHD) >= 60 mg/dL: High HDL-cholesterol (negative risk factor for CHD) HDL-cholesterol is affected by a number of factors, e.g. smoking, exercise, hormones, sex and age. Performed By: #### L 100.0100, L501.9940, L500.4050, L500.4100 #### [facility] [address] [place], [address] Cholesterol in LDL [Mass/Vol] 67 mg/dL Normal [facility] Comment on above: Result Comment: Bord xdqjpo=052-296 mg/dL Higher Iwiz=620 mg/dL or greater Performed By: #### L 100.0100, L501.9940, L500.4050, L500.4100 #### [facility] [address] [place], [address] Cholesterol in VLDL [Mass/Vol] 18 mg/dL Normal 5-40 [facility] Comment on above: Performed By: #### L 100.0100, L501.9940, L500.4050, L500.4100 #### [facility] [address] [place], [address] Triglyceride [Mass/Vol] 91 mg/dL Normal [facility] Comment on above: Result Comment: The drugs N-Acetylcysteine and Metamizole may falsely depress this assay. Normal range: <150 mg/dL Borderline High: 150-199 mg/dL High: 200-499 mg/dL Very High: >500 mg/dL Performed By: #### L 100.0100, L501.9940, L500.4050, L500.4100 #### [facility] [address] [place], [address] MCV (mean corpuscular volume ) determinationOrdered By: Aisha Saavedra on 01-30-2025 MCV (RBC) [Entitic vol] 94.3 fL High 80-94 [facility] Mean corpuscular hemoglobin (MCH) determinationOrdered By: Aisha Saavedra on 01-30-2025 MCH (RBC) [Entitic mass] 31.5 pg 27.0-32.0 [facility] Mean corpuscular hemoglobin concentration (MCHC) determinationOrdered By: Aisha Saavedra on 01-30-2025 MCHC (RBC) [Mass/Vol] 33.4 g/dL 32-36 [facility] Mean platelet volume determi nationOrdered By: Aisha Saavedra on 01-30-2025 Platelet mean volume (Bld) [Entitic vol] 11.3 fL 6.2-12.0 [facility] Monocyte percentageOrdered B y: Aisha Saavedra on 01-30-2025 Monocytes/100 WBC (Bld) 10.5 % High 0-10 [facility] Neutrophil percentageOrdered By: Aisha Saavedra on 01-30-2025 Neutrophils/100 WBC (Bld) 59.7 % 47-70 [facility] Nucleated red blood cell per centageOrdered By: Aisha Saavedra on 01-30-2025 Nucleated RBC/100 WBC (Bld) [Ratio] 0 % 0-5 [facility] PSA,Total- Diagnosticon 01-13 PSA, DIAGNOSTIC 0.38 ng/mL Normal 0.00-4.00 [facility] Comment on above: Result Comment: [...] confirm baseline values. Performed By: #### L 100.0100, L501.9940, L500.4050, L500.4100 #### [facility] [place], [address] Platelet countOrdered By: Joe Saavedra on 01-30-2025 Platelets (Bld) [#/Vol] 251 10*3/uL 150-450 [facility] Potassium measurement (mass/ volume)Ordered By: Aisha Saavedra on 01-30-2025 Potassium (Unsp spec) [Mass/Vol] 4.5 mmol/L 3.3-5.1 [facility] RBC Auto (Bld) [#/Vol]Ordere d By: Aisha Saavedra on 01-30-2025 RBC (Bld) [#/Vol] 5.05 10*6/uL 4.6-6.[address] [facility] Screening total cholesterol/ high density lipoprotein (HDL) cholesterol ratioOrdered By: Aisha Saavedra on 01-30-2025 Cholesterol.total/Choles terol in HDL [Mass ratio] 2.79 {ratio} [facility] Serum creatinine measurement (mass/volume)Ordered By: Aisha Saavedra on 01-30-2025 Creatinine [Mass/Vol] 0.81 mg/dL 0.70-1.20 [facility] Serum globulin measurementOr dered By: Aisha Saavedra on 01-30-2025 Globulin (S) [Mass/Vol] 2.8 g/dL 2.2-4.2 [facility] Serum glucose measurement (m ass/volume)Ordered By: Aisha Saavedra on 01-30-2025 Glucose [Mass/Vol] 97 mg/dL 70-99 [facility] Serum or plasma alanine mccormick otransferase (ALT) measurementOrdered By: Aisha Saavedra on 01-30-2025 ALT [Catalytic activity/Vol] 13 U/L <47 [facility] Serum or plasma albumin marlee urement (mass/volume)Ordered By: Aisha Saavedra on 01-30-2025 Albumin [Mass/Vol] 4.2 g/dL 3.4-4.8 [facility] Serum or plasma albumin/glob ulin mass ratioOrdered By: Aisha Saavedra on 01-30-2025 Albumin/Globulin [Mass ratio] 1.5 {ratio} 0.9-2.4 [facility] Serum or plasma alkaline amber sphatase measurementOrdered By: Aisha Saavedra on 01-30-2025 ALP [Catalytic activity/Vol] 95 U/L 40-129 [facility] Serum or plasma calcium marlee urement (mass/volume)Ordered By: Aisha Saavedra on 01-30-2025 Calcium [Mass/Vol] 9.7 mg/dL 7.6-11.0 [facility] Serum or plasma cholesterol in HDL measurement (mass/volume)Ordered By: Aisha Saavedra on 01-30-2025 Cholesterol in HDL [Mass/Vol] 48 mg/dL >40 [facility] Comment on above: National Cholesterol Education Program (NCEP) guidelines:<40 mg/dL: Low HDL-cholesterol (major risk factor for CHD)>= 60 mg/dL: High HDL-cholesterol (negative risk factor for CHD)HDL-cholesterol is affected by a number of factors, e.g. smoking, exercise, hormones, sex and age. Serum or plasma cholesterol measurement (mass/volume)Ordered By: Aisha Saavedra on 01-30-2025 Cholesterol [Mass/Vol] 133 mg/dL <201 [facility] Comment on above: Cholesterol level, D esirable <200 mg/dLBorderline high cholesterol 200-239 mg/dLHigh cholesterol >=240 mg/dLRecommendations of the NCEP Adult Treatment Panel for the following risk-cutoff thresholds for the [place] population. Serum or plasma urea nitroge n measurement (mass/volume)Ordered By: Aisha Saavedra on 01-30-2025 Urea nitrogen [Mass/Vol] 17 mg/dL 4-19 [facility] Sodium levelOrdered By: Daniel Saavedra on 01-30-2025 Sodium [Moles/Vol] 140 mmol/L 133-145 [facility] Total proteinOrdered By: Darwin Saavedra on 01-30-2025 Protein [Mass/Vol] 7.0 g/dL 5.9-8.4 [facility] Triglycerides measurementOrd ered By: Aisha Saavedra on 01-30-2025 Triglyceride [Mass/Vol] 91 mg/dL <199 [facility] Comment on above: The drugs N-Acetylcy steine and Metamizole may falsely depress this assay. Normal range: <150 mg/dLBorderline High: 150-199 mg/dLHigh: 200-499 mg/dLVery High: >500 mg/dL White blood cell (WBC) count Ordered By: Aisha Saavedra on 01-30-2025 WBC (Bld) [#/Vol] 8.2 10*3/uL 4.4-11.0 [facility] Internal Medicine Office Vis itocarmen 01-29-2025 Internal Medicine Office Visit [facility] [address] [place] [address] [place] [address] OFFICE VISIT Date of Service: 01/30/25 MR#: [id number] Acct: [id number] Name: DREA MAX Rep #: [id number] : 1955 Provider: Dr. 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 [facility] Medical History Skin cancer Heart disease Hearing [...] occupational status: retired current occupation: worked in [employer] Smoking Status: Former smoker quit date: 08/15/15 [...] and colleagues, with an educational rolando from [employer]. ESTELITA-7 BMS ESTELITA-7 Feeling nervous, anxious, or [...] 0 Source: Developed by Drs. Deng Mai, Kareen Perez, Ky Taylor and colleagues, with an educational rolando from [employer]. HPI HPI Chief Complaint: 6 M FU Details: DREA MAX, is a 69 M who (more content not included)... Normal [facility] Internal Medicine Office Vis iton 07-31-2024 Internal Medicine Office Visit [facility] [address] [place] [address] [place] [address] OFFICE VISIT Date of Service: 08/01/24 MR#: [id number] Acct: [id number] Name: DREA MAX Rep #: [id number] : 1955 Provider: Dr. Aisha galdamez MD Age/Sex: 68/M Location: [facility] Status: Signed with Addenda ADDENDUM by Dr. 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 Denies dizziness. [facility] Medical History Skin cancer Heart disease Hearing [...] occupational status: retired current occupation: worked in [employer] Smoking Status: Former smoker quit date: 08/15/15 [...] The pa (more content not included)... Normal [facility] 36on 02-01-2024 36 We want to inform you that your patient's blood pressure was noted to be elevated in our office today. We thank you for trusting us with your patient's health. Last BP: BP Readings from Last 2 Encounters: 02/01/24 (!) 140/[address] [facility] Office Visiton 02-01-2024 Follow-up visit [id number] Drea Max 1955 M Date Provider Department Center 02/01/2024 [facility] None No family history on file Level of Service:[address] [place] OFFICE/OUTPATIENT NEW LOW [facility] 30 MINUTES Reason for Visit and Comments: Erectile Dysfunction [324959] - Patient states ed started 4 months ago, 3 instances of dry orgasms, denies any other issues at this time [facility] Progress Noteon 02-01-2024 Progress Note Cristopher Wylie [...] erectile dysfunction and possible anorgasmia Moved to [place] in April. 10 years ago and was [...] alert. 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 Cristopher Wylie MD 02/01/24 1:37 PM Normal [facility] Absolute lymphocyte countOrd ered By: Aisha Saavedra on 10-13-2023 Lymphocytes Auto (Unsp spec) [#/Vol] 2.93 10*3/uL 0.83-4.51 [facility] Automated lymphocyte count a s percentage of total leukocytesOrdered By: Aisha Saavedra on 10-13-2023 Lymphocytes/100 WBC Auto (Unsp spec) 27.3 % 19-41 [facility] Basophil percentageOrdered B y: Aisha Saavedra on 10-13-2023 Basophils/100 WBC (Bld) 0.6 % 0-1 [facility] Bilirubin [Mass/Vol] 0.70 mg/dL 0.20-1.00 [facility] Comment on above: For patients on eltr ombopag therapy, use of Dimension [place] TBIL is not recommended. Chloride [Moles/Vol] 110 mmol/L 98-107 [facility] Cholesterol [Mass/Vol] 139 mg/dL <200 [facility] Comment on above: <200 mg/dL Desirable 200-240 mg/dL Borderline >240 mg/dL High Risk Eosinophils/100 WBC (Bld) 2.0 % 0-5 [facility] Glucose [Mass/Vol] 93 mg/dL 74-106 [facility] Hemoglobin (Bld) [Mass/Vol] 16.0 g/dL 13.0-16.5 [facility] Monocytes/100 WBC (Bld) 8.2 % 0-10 [facility] Neutrophils (Bld) [#/Vol] 6.6 10*3/uL 2.0-7.7 [facility] Neutrophils/100 WBC (Bld) 61.5 % 47-70 [facility] Potassium [Moles/Vol] 4.5 mmol/L 3.5-5.1 [facility] Protein [Mass/Vol] 7.4 g/dL 6.4-8.2 [facility] Sodium [Moles/Vol] 142 mmol/L 136-145 [facility] Triglyceride [Mass/Vol] 138 mg/dL <199 [facility] Comment on above: The drugs N-Acetylcy steine and Metamizole may falsely depress this assay.Serum Triglycerides Reference Interval Normal <150 mg/dL Borderline high 150 - 199 mg/dL High 200 - 499 mg/dL Very High > or = 500 mg/dL WBC (Bld) [#/Vol] 10.7 10*3/uL 4.4-11.[address] [facility] Determination of erythrocyte mean corpuscular volume (MCV)Ordered By: Aisha Saavedra on 10-13-2023 MCV (RBC) [Entitic vol] 94.5 fL 80-94 [facility] Erythrocyte distribution wid th ratioOrdered By: Aisha Saavedra on 10-13-2023 Erythrocyte distribution width (RBC) [Ratio] 13.2 % 11.6-14.6 [facility] Erythrocyte distribution wid th standard deviationOrdered By: Aisharachel Saavedra on 10-13-2023 Erythrocyte distribution width (RBC) [Entitic vol] 46.0 fL 35.1-43.9 [facility] Hematocrit Auto (Bld) [Volum e fraction]Ordered By: Aisha Saavedra on 10-13-2023 Hematocrit (Bld) [Volume fraction] 49.8 % 40-54 [facility] Immature granulocytes/100 WB C Auto (Bld)Ordered By: Aisharachel Saavedra on 10-13-2023 Immature granulocytes/100 WBC (Bld) 0.400 % 0.0-0.9 [facility] Comment on above: IG% - Immature Granu locytes (promyelocytes, myelocytes and metamyelocytes) > 1% indicates that a LEFT SHIFT is Present. Laboratory - Chemistry and C hemistry - challengeOrdered By: Aisha Saaevdra on 10-13-2023 Albumin/Globulin [Mass ratio] 1.1 {ratio} 0.9-2.4 [facility] ALP [Catalytic activity/Vol] 84 U/L 45-117 [facility] ALT [Catalytic activity/Vol] 26 U/L 16-61 [facility] Cholesterol in HDL [Mass/Vol] 52 mg/dL >40 [facility] Comment on above: The drugs N-Acetylcy steine and Metamizole may falsely depress this assay. Reference Range HDL <40 mg/dL Low HDL Cholesterol HDL >or= 60 mg/dL High HDL Cholesterol Cholesterol in LDL [Mass/Vol] 59 mg/dL 0-130 [facility] CO2 [Moles/Vol] 29.0 mmol/L 21.0-32.0 [facility] Globulin (S) [Mass/Vol] 3.5 g/dL 2.2-4.2 [facility] Urea nitrogen/Creatinine [Mass ratio] 20.2 mg/mg 10-20 [facility] - Hematology and Cell countsOrdered By: Aisha Saavedra on 10-13-2023 MCH (RBC) [Entitic mass] 30.4 pg 27.0-32.0 [facility] MCHC (RBC) [Mass/Vol] 32.1 g/dL 32-36 [facility] Nucleated RBC/100 WBC (Bld) [Ratio] 0 % 0-5 [facility] Platelet mean volume (Bld) [Entitic vol] 11.2 fL 6.2-12.0 [facility] Platelets (Bld) [#/Vol] 303 10*3/uL 150-450 [facility] No Panel InformationOrdered By: Aisha Saavedra on 10-13-2023 Estimated GFR (MDRD) Amer 125 mL/min >60 [facility] Comment on above: GFR Calc Estimated GFR (MDRD) Non-Af Amer 103 mL/min >60 [facility] Comment on above: Non- GFR Calc Prostate Specific Antigen Screen 0.75 ng/mL 0.00-4.00 [facility] Comment on above: This test was perfor med using the TPSA assay method for the[employer] chemistry system. Values obtained with differentassay methods cannot be used interchangably.When changing PSA assays in the course of monitoring apatient, additional sequential testing should be carriedout to confirm baseline values. VLDL Cholesterol 28 mg/dL 5-40 [facility] RBC Auto (Bld) [#/Vol]Ordere d By: Aisha Saavedra on 10-13-2023 RBC (Bld) [#/Vol] 5.27 10*6/uL 4.6-6.[address] [facility] Serum or plasma calcium marlee urement (mass/volume)Ordered By: Aisha Saavedra on 10-13-2023 Calcium [Mass/Vol] 9.3 mg/dL 8.5-10.1 [facility] Serum or plasma creatinine m easurement (mass/volume)Ordered By: Aisha Saavedra on 10-13-2023 Creatinine [Mass/Vol] 0.79 mg/dL 0.70-1.30 [facility] Comment on above: The validity of the calculated GFR & GFRAA in patients over 70 years has not been determined. Clinical correlation is essential. Serum or plasma thyroid stim ulating hormone (TSH) measurement (units/volume)Ordered By: Aisha Saavedra on 10-13-2023 TSH Qn 3.39 uIU/mL 0.358-3.74 [facility] Serum or plasma urea nitroge n measurement (mass/volume)Ordered By: Aisha Saavedra on 10-13-2023 Urea nitrogen [Mass/Vol] 16 mg/dL 7-18 [facility] Thin prep Papanicolaou smear with manual screeningOrdered By: Aisha Saavedra on 10-13-2023 Thin prep Papanicolaou smear with manual screening 3.9 g/dL 3.2-5.0 [facility] Thin prep Papanicolaou smear with manual screening 14 U/L 15-37 [facility] Thin prep Papanicolaou smear with manual screening 3 5-15 [facility] Vital Signs Date Time Vital Sign Value Performing Clinician Faci lity 03-13-2025 10:47-0400 Body height 182.[address] Aisha Saavedra MD Work Phone: [facility] 03-13-2025 10:47-0400 Body mass index (BMI) [Ratio] 25.2 kg/m2 Dr. Aisha Saavedra MD Work Phone: [facility] 03-13-2025 10:47-0400 Body weight 84.[address] Aisha Saavedra MD Work Phone: [facility] 03-13-2025 10:47-0400 Diastolic blood pressure 77 mm[Hg] Dr. Aisha Saavedra MD Work Phone: [facility] 03-13-2025 10:47-0400 Heart rate 64 /min Dr. Aisha Saavedra MD Work Phone: [facility] 03-13-2025 10:47-0400 Respiratory rate 16 /min Dr. Aisha Saavedra MD Work Phone: [facility] 03-13-2025 10:47-0400 Systolic blood pressure 121 mm[Hg] Dr. Aisha Saavedra MD Work Phone: [facility] 03-09-2025 07:40-0400 Body temperature 98.6 [degF] Dr. Aisha Saavedra MD Work Phone: [facility] 03-09-2025 07:40-0400 Diastolic blood pressure 83 mm[Hg] Dr. Aisha Saavedra MD Work Phone: [facility] 03-09-2025 07:40-0400 Heart rate 64 /min Dr. Aisha Saavedra MD Work Phone: [facility] 03-09-2025 07:40-0400 Respiratory rate 18 /min Dr. Aisha Saavedra MD Work Phone: [facility] 03-09-2025 07:40-0400 SaO2% (BldA) [Mass fraction] 96 % Dr. Aisha Saavedra MD Work Phone: [facility] 03-09-2025 07:40-0400 Systolic blood pressure 120 mm[Hg] Dr. Aisha Saavedra MD Work Phone: [facility] 03-09-2025 05:59-0400 Body height 182.[address] Aisha Saavedra MD Work Phone: [facility] 03-09-2025 05:59-0400 Body mass index (BMI) [Ratio] 25.2 kg/m2 Dr. Aisha Saavedra MD Work Phone: [facility] 03-09-2025 05:59-0400 Body weight 84.[address] Aisha Saavedra MD Work Phone: [facility] 01-30-2025 09:07-0400 Body height 182.[address] Aisha Saavedra MD Work Phone: [facility] 01-30-2025 09:07-0400 Body mass index (BMI) [Ratio] 25.2 kg/m2 Dr. Aisha Saavedra MD Work Phone: [facility] 01-30-2025 09:07-0400 Body temperature 97.4 [degF] Dr. Aisha Saavedra MD Work Phone: [facility] 01-30-2025 09:07-0400 Body weight 84.[address] Aisha Saavedra MD Work Phone: [facility] 01-30-2025 09:07-0400 Diastolic blood pressure 84 mm[Hg] Dr. Aisha Saavedra MD Work Phone: [facility] 01-30-2025 09:07-0400 Heart rate 69 /min Dr. Aisha Saavedra MD Work Phone: [facility] 01-30-2025 09:07-0400 Respiratory rate 18 /min Dr. Aisha Saavedra MD Work Phone: [facility] 01-30-2025 09:07-0400 SaO2% (BldA) [Mass fraction] 93 % Dr. Aisha Saavedra MD Work Phone: [facility] 01-30-2025 09:07-0400 Systolic blood pressure 136 mm[Hg] Dr. Aisha Saavedra MD Work Phone: [facility] 02-01-2024 13:05-0400 Body height 182.9 cm Cristopher Wylie MD Work Phone: [facility] 02-01-2024 13:05-0400 Body mass index (BMI) [Ratio] 23.6 kg/m2 Cristopher Wylie MD Work Phone: [facility] 02-01-2024 13:05-0400 Body weight 78.93 kg Cristopher Wylie MD Work Phone: [facility] 02-01-2024 13:05-0400 Diastolic blood pressure 96 mm[Hg] Cristopher Wylie MD Work Phone: [facility] 02-01-2024 13:05-0400 Heart rate 76 /min Cristopher Wylie MD Work Phone: [facility] 02-01-2024 13:05-0400 Systolic blood pressure 140 mm[Hg] Cristopher Wylie MD Work Phone: [facility] 10-13-2023 14:03-0500 Body height 182.88 cm PA Darwin Rockwell PA Work Phone: [facility] 10-13-2023 14:03-0500 Body mass index (BMI) [Ratio] 25.4 kg/m2 PA Darwin Rockwell PA Work Phone: [facility] 10-13-2023 14:03-0500 Body temperature 97.2 [degF] PA Darwin Rockwell PA Work Phone: [facility] 10-13-2023 14:03-0500 Body weight 85.04 kg PA Darwin Rockwell PA Work Phone: [facility] 10-13-2023 14:03-0500 Diastolic blood pressure 80 mm[Hg] PA Darwin Rockwell PA Work Phone: [facility] 10-13-2023 14:03-0500 Heart rate 72 /min PA Darwin Rockwell PA Work Phone: [facility] 10-13-2023 14:03-0500 Respiratory rate 16 /min PA Darwin Rockwell PA Work Phone: [facility] 10-13-2023 14:03-0500 SaO2% (BldA) [Mass fraction] 98 % PA Darwin Rockwell PA Work Phone: [facility] 10-13-2023 14:03-0500 Systolic blood pressure 132 mm[Hg] PA Darwin Rockwell PA Work Phone: [facility] 08-31-2023 12:57-0500 Body mass index (BMI) [Ratio] 24.4 kg/m2 PA Darwin Rockwell PA Work Phone: [facility] 08-31-2023 12:57-0500 Body weight 81.64 kg PA Darwin Rockwell PA Work Phone: [facility] 08-29-2023 08:19-0500 Body mass index (BMI) [Ratio] 24.7 kg/m2 PA Darwin Rockwell PA Work Phone: [facility] 08-29-2023 08:19-0500 Body temperature 98 [degF] PA Darwin Rockwell PA Work Phone: [facility] 08-29-2023 08:19-0500 Body weight 82.55 kg PA Darwin Rockwell PA Work Phone: [facility] 08-29-2023 08:19-0500 Diastolic blood pressure 82 mm[Hg] PA Darwin Rockwell PA Work Phone: [facility] 08-29-2023 08:19-0500 Heart rate 75 /min PA Darwin GARCIA Work Phone: [facility] 08-29-2023 08:19-0500 Respiratory rate 12 /min PA Darwin GARCIA Work Phone: [facility] 08-29-2023 08:19-0500 SaO2% (BldA) [Mass fraction] 97 % PA Darwin Rockwell PA Work Phone: [facility] 08-29-2023 08:19-0500 Systolic blood pressure 126 mm[Hg] PA Darwin Rockwell PA Work Phone: [facility] Encounters Encounter Date Encounter Type Care Provider Facility Start: 03-13-2025 End: 03-13-2025 ambulatory Sanjay Arceo Facility:[facility] Start: 03-13-2025 End: 03-13-[address] Sanjay Arceo MD -[facility] Work Phone: Start: 03-09-2025 End: 03-09-2025 Emergency department patient visit Dr. Aisha Saavedra MD Work Phone: -Emergency Department Work Phone: Start: 02-21-2025 End: 02-21-[address] Aisha Saavedra MD Work Phone: [facility] Start: 02-21-2025 End: 02-21-[address] Aisha Saavedra MD [facility] Work Phone: Start: 02-21-2025 End: 02-21-2025 ambulatory Aisha Saavedra Facility:[facility] Start: 01-30-2025 End: 01-30-[address] Aisha Saavedra MD Work Phone: [facility] Work Phone: Start: 01-30-2025 End: 01-30-[address] Aisha Saavedra MD -[facility] Start: 01-30-2025 End: 01-30-[address] Aisha Saavedra MD -[facility] Work Phone: Start: 01-30-2025 End: 01-30-[address] 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 Aisha Saavedra Work Phone: [facility] Work Phone: Start: 11-09-2023 End: 11-09-[address] Aisha Saavedra Work Phone: [facility] Start: 11-01-[address] Mukesh Saavedra Work Phone: [facility] Work Phone: Start: 10-25-2023 Non-patient / Non-visit Dr. Sparks Work Phone: [facility] Start: 10-25-2023 End: 10-25-[address] Aisha Saavedra Work Phone: [facility] Work Phone: Start: 10-25-2023 End: 10-25-[address] [facility] Start: 10-19-[address] Mukesh Saavedra Work Phone: [facility] Work Phone: Start: 10-13-2023 End: 10-13-2023 ambulatory JOSE GARCIA Work Phone: [facility] Work Phone: Start: 10-13-2023 End: 10-13-2023 Patient encounter procedure JOSE GARCIA Work Phone: [facility] [place] Start: 10-13-2023 End: 10-13-2023 Patient encounter procedure JOSE GARCIA Work Phone: [facility] Work Phone: Start: 09-07-2023 Registered Recurring JOSE GARCIA Work Phone: [facility] Work Phone: Start: 08-31-2023 End: 08-31-2023 Patient encounter procedure JOSE GARCIA Work Phone: [facility] Work Phone: Start: 08-29-2023 End: 08-29-2023 Patient encounter procedure JOSE GARCIA Work Phone: [facility] Work Phone: Procedures Date Procedure Procedure Detail Performing Clinician Start: 03-09-2025 X-ray of chest, PA a nd lateral views Dr. Aisha Saavedra MD Work Phone: Start: 03-09-2025 D-dimer assay, quantitative Dr. Aisha Saavedra MD Work Phone: Comment on above: NORMAL D-Dimer level (<0.50) indicates no DVT or PE. Start: 03-09-[address] Aisha Saavedra MD Work Phone: Start: 02-21-2025 MRI of brain with contrast [...] Treatment Date Care Activity Detail Author Start: 03-13-2025 Evaluation of diagnostic study results [facility] Start: 03-09-2025 End: 03-09-2025 [facility] Start: 01-30-2025 Patient referral [facility] Work Phone: Start: 01-30-2025 CBC W Auto Differential panel - Blood [facility] Start: 01-30-2025 Comprehensive metabolic 2000 panel - Serum or Plasma [facility] Start: 01-30-2025 Lipid 1996 panel - Serum or Plasma [facility] Start: 01-30-2025 Prostate specific antigen measurement [facility] Start: 10-12-2024 Pneumococcal Vaccine: 65+ Years (2 of 2 - PCV) Pneumococcal Vaccine: 65+ Years (2 of 2 - PCV) [facility] Start: 11-25-2023 COVID-19 Vaccine ( season) COVID-19 Vaccine ( season) [facility] Start: 08-31-2023 Patient referral [facility] Work Phone: Start: 08-29-2023 Patient referral [facility] Work Phone: Start: 11-16-2005 Zoster Vaccines (1 of 2) Zoster Vaccines (1 of 2) [facility] Start: 11-16-1974 DTaP/Tdap/Td Vaccines (1 - Tdap) DTaP/Tdap/Td Vaccines (1 - Tdap) [facility] Start: 11-16-1973 Hepatitis C screening Hepatitis C Screening [facility] Start: 1967 Depression Screening Depression Screening [facility] Start: 1955 Lipid panel Lipid Panel [facility] Start: 1955 Medicare Annual Wellness (AWV) Medicare Annual Wellness (AWV) [facility] Start: 1955 Screening for malignant neoplasm of colon [facility] Abdominal aortic ane urysm screening [facility] Alanine aminotransfe rase [Enzymatic activity/volume] in Serum or Plasma [facility] Albumin [Mass/volume ] in Serum or Plasma [facility] Alkaline phosphatase [Enzymatic activity/volume] in Serum or Plasma [facility] Anion gap in Serum o r Plasma [facility] Bilirubin, total measurement [facility] BUN/Creatinine ratio [facility] Calcium [Mass/volume ] in Serum or Plasma [facility] Carbon dioxide, tota l [Moles/volume] in Central venous blood [facility] Cholesterol [Mass/vo lume] in Serum or Plasma [facility] Cholesterol in HDL [Mass/volume] in Serum or Plasma [facility] Creatinine [Mass/vol ume] in Serum or Plasma [facility] Erythrocyte mean corpuscular volume determination [facility] Glucose [Mass/volume ] in Serum or Plasma [facility] Hematocrit [Volume Fraction] of Blood [facility] Hemoglobin [Mass/vol ume] in Blood [facility] Leukocytes [#/volume ] in Blood [facility] Low density lipoprot ein cholesterol measurement [facility] Mean corpuscular hem oglobin concentration determination [facility] Mean corpuscular hem oglobin determination [facility] Measurement of renal function [facility] MRA Head vessels WO and W contrast IV [facility] Neutrophil count [facility] Neutrophil percent differential count [facility] Patient Education ED Palpitation s ED Pneumonia (Adult) [facility] Work Phone: Patient referral [facility] Work Phone: Platelets [#/volume] in Blood [facility] Potassium measurement [facility] Red blood cell count [facility] Red cell distributio n width determination [facility] Serum chloride measurement [facility] Serum testosterone measurement [facility] Sodium measurement [facility] Testosterone measurement [facility] Total cholesterol:HD L ratio measurement [facility] Total protein measurement [facility] Triglycerides measurement [facility] Urea nitrogen [Mass/ volume] in Serum or Plasma [facility] VLDL cholesterol measurement [facility] Immunizations Immunization Date Immunization Notes Care Provider Glenis stahl 01-30-2025 pneumococcal conjuga te vaccine, [address] Aisha Saavedra MD Work Phone: [facility] 10-13-2023 pneumococcal polysaccharide vaccine, 23 valent JOSE GARCIA Work Phone: [facility] 07-26-2023 Influenza, injectabl e, Madin Tigist Canine Kidney, preservative free, quadrivalent JOSE GARCIA Work Phone: [facility] 07-26-2023 Pfizer Covid-19 (Comirnaty) JOSE GARCIA Work Phone: [facility] 07-26-2023 RSV Adult Recombinan t (Arexvy) JOSE GARCIA Work Phone: [facility] Payers Date Payer Category Payer Self-pay 2023 Unknown AARP AARP [id number] 2023-Present [address] [place] [address] Supplement [id number] 2023 Unknown [id number] 2022 Medicare MEDICARE MEDICAR E PART A AND B [id number] 2022-Present [address] [place] [address] Medicare [id number] 2022 Medicare [id number] Unknown [id number] Unknown [id number] Unknown [id number] Unknown [id number] Unknown [id number] Unknown [id number] Social History Date Type Detail Facility Start: 10-13-2023 End: 10-13-2023 Tobacco smoking status NDIS Unknown if ever smoked [facility] Start: 1955 Sex Assigned At Male [facility] Start: 1955 Sex assigned at Not on file [facility] Gender identity Not on file [facility] Start: 01-30-2025 End: 03-09-2025 Tobacco smoking status NHIS Ex-smoker (finding) [facility] Mental Status Date Assessment Result Facility 03-09-2025 Cognitive function Voice/Name [facility] Work Phone: Discharge summary 03-09-2025 Note Date & Type Note Facility 03-09-2025 Discharge summary [facility] Radiology Diagnostic study note 03-09-2025 Note Date & Type Note Facility 03-09-2025 [address] study note [facility] Imaging Services [address] [place] [address] Chest PA and Lateral MR#: [id number] Acct: [id number] Name: DREA MAX Rep #: [id number] : 1955 M 69 From: Aayush Serra MD PCP: Dr. Aisha Saavedra MD Status: REG ER Study:Chest PA and Lateral Date of Exam: 03/09/25 Exam# [id number] Ordering Dr: Arabella Robbins DO PROCEDURE: CHEST PA AND LATERAL 03/09/2025 REASON FOR EXAM: PALPITATIONS TECHNIQUE: CHEST PA AND LATERAL COMPARISON: None. FINDINGS: Hardware: Monitor electrodes overlie the chest. Heart: No cardiomegaly. Mediastinum: Unremarkable. Lungs: Interstitial densities in the lower lungs concerning for pulmonary edema or pneumonia. No pleural effusion or pneumothorax. Bones: No acute bony abnormalities. RAD/Chest PA and Lateral IMPRESSION: Interstitial densities in the lower lungs concerning for pulmonary edema or pneumonia. No pleural effusion or pneumothorax. Reading Location: [facility] CC: Dr. Aisha Saavedra MD; Rich Robbins DO ~ Sales And Marketing Vice President: Signed [facility] Evaluation note 01-30-2025 Note Date [...] 30, 2025 8:56am Anxiety and depression noneactive Arabella 2024 8:56am [facility] Work Phone: History of Present illness Narrative 02-01-2024 Damon Darby MD - 02/01/2024 1:00 PM EDT Note Date & Type Note Facility 02-01-2024 History of Presen t illness Narrative Images from the original note were not included. Cristopher Wylie MD 02/01/2024 at 1:37 PM [...] erectile dysfunction and possible anorgasmia Moved to [place] in April. 10 years ago and was [...] alert. 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 Cristopher Wylie MD 02/01/24 1:37 PM documented in this encounter [facility] Discharge summary Note Date & Type Note Facility Discharge summary Note Date/Time March 09, 2025 7:23am [facility] Medical Records Department [address] [place] [address] Emergency Department Summary 03/09/25 MR#: [id number] Acct: [id number] Name: DREA MAX Rep #:[id number] : 1955 69 From: Rich Robbins DO PCP: Dr. Aisha Saavedra MD Status:REG ER Location: ED HPI History of Present Illness Chief Complaint: Palpitations Informant: patient Narrative Narrative: Patient is a 69-year-old male with past medical history of hyperlipidemia and coronary artery disease requiring stent placement 12 years ago. He states that over the past few weeks he would have bouts of palpitations which she describes as irregular and fast. He also states that he has had a few episodes where he sweats profusely and has bouts of nausea and vomiting. He reports the most recent bout of diaphoresis and nausea and vomiting was roughly 1 week ago after mowing the yard. He states there was no chest pain associated with it but the symptoms concerned him for cardiovascular disease. He states he has an appointment set up with the service sprinkler helper Dr. Arceo next week. He states howeverthat 4 times throughout the night starting from approximately 9 or 10 PM with the last 1 being around 5 AM his watch went off alerting him to palpitations concerning for A-fib. He states that it did feel fast and irregular but it onlylasted for a few minutes and resolved. He denies any history of excessive stimulant use or illicit drug use. He states as his symptoms have been recurrent throughout the night he presents for evaluation [facility] Medical History Mixed hyperlipidemia Hx of myocardial infarction Atherosclerosis of coronary artery of [place] heart without angina pectoris Skin cancer Heart disease Hearing problem Bone fracture Home Medications ?Medication ?Instructions ?Recorded ?Last Taken ?Type aspirin 81 mg tablet,delayed 81 mg PO DAILY 08/31/23 U nknown History release nitroglycerin 0.3 mg sublingual 0.3 mg sublingual Q5M PRN chest 05/28/24 Unknown Rx tablet pain #30 tabs atorvastatin 40 mg tablet 40 mg PO DAILY #90 tabs 05/09 Unknown Rx tamsulosin 0.4 mg capsule (Flomax) 0.4 mg PO QHS #30 c aps 01/30/25 Unknown Rx tadalafil 5 mg tablet (Cialis) 5 mg PO DAILY #90 tabs 02/11/25 Unknown Rx carvedilol 6.25 mg tablet 6.25 mg PO BID #180 tabs Unknown Rx azithromycin 250 mg tablet See Rx Instructions PO .COM PLEX #6 03/09/25 Unknown Rx (Zithromax Z-Farzad) tabs cefdinir 300 mg capsule 300 mg PO BID 7 days #14 cap s 03/09/25 Unknown Rx Allergy/AdvReac Type Severity Reaction Status Date / Time naproxen (From Aleve) AdvReac palpitation Verified 03/09/25 05:59 s Family History (Updated 02/25/25 @ 10:50 by Angeles Martinez RN) Father Cancer, Onset Age: 80 leukemia Hypertension Aunt CAD (coronary artery disease) Uncle CAD (coronary artery disease) Sister Hypertension Surgical History History of banding of hemorrhoid History of ankle surgery H/O rhinoplasty H/O heart artery stent Social History (Updated 01/30/25 @ 09:[address] Aisha Saavedra MD) household members: significant other housing: house current occupational status: retired current occupation: worked in [employer] Smoking Status: Former smoker quit date: 08/15/15 pack-years: 40 Electronic Cigarette Use: not used alcohol intake: current alcohol intake frequency: a few times a month Alcohol type: hard liquor substance use type: marijuana what type of physical activity do you participate in: walking seatbelt use: always do you feel safe at home: Yes ROS ROS ED Constitutional Constitutional ED: Reports sweats; Denies chills or fever(s) Eyes Eyes: Denies change in vision ENT ENT ED: Denies sore throat Cardiovascular Cardiovascular: Reports palpitations and racing heartbeat; Denies chest pain Respiratory/Chest Respiratory/Chest: Denies cough or dyspnea Gastrointestinal Gastrointestinal: Reports nausea and vomiting; Denies abdominal pain or diarrhea Musculoskeletal Musculoskeletal: Denies back pain Integumentary Denies rash Neurologic Neurologic: Denies headache(s) Psychiatric Psychiatric: Reports anxiety Hematologic/Lymphatic Hematologic/Lymphatic: Denies easy bleeding or easy bruising EXAM Physical Exam Const Vital Signs: 03/09/25 05:59 03/09/25 06:01 03/09/25 07:00 Temperature 97.5 F L Temperature Source Oral Pulse Rate 76 68 Respiratory Rate 14 18 Respiratory Effort Normal Non-Labored Respiratory Pattern Normal Blood Pressure 132/87 H 126/87 H Blood Pressure Mean 102 100 Pulse Ox 99 98 Oxygen Delivery Method Room Air Room Air Positive well nourished and well developed General Appearance ED: well developed; Negative for pallor HEENT HEENT Narrative: Normocephalic atraumatic Eyes PERRL and EOMs intact bilaterally General Eye ED: Negative for scleral icterus Neck supple and no JVD Chest Wall palpation of chest normal Chest Narrative: No bony deformity or subcutaneous emphysema noted Resp normal respiratory effort and clear to auscultation bilaterally Cardio regular rate and regular rhythm Rate: other Other Details: Heart is regular rate and rhythm Radial and carotid pulses are equal and symmetric GI normal to inspection, nondistended, normoactive bowel sounds, non-tender, non-distended and no masses GI Narrative: No voluntary guarding rigidity or pulsatile mass Auscultation: normoactive bowel sounds Palpation: soft Extremity normal to inspection Extremity Narrative: No asymmetric edema no pitting edema negative Homans' sign bilaterally Neuro oriented x3, CN's II-XII intact bilaterally and no sensory deficits noted Sensorium / Orientation: alert Motor Exam: strength 5/5 throughout Psych mental status grossly normal Skin no rashes or lesions noted General Skin Exam: Negative for jaundice or pallor MDM MDM MDM Narrative Medical decision making narrative: Patient arrived to the ER with stable vitals and resolution of his palpitations. He reported that his watch alerted him to the fact he was in atrial fibrillation but states he has no formal diagnosis or known history. He does have known CAD and with his report of recent diaphoresis and bouts of nausea andvomiting after physical activity and mowing the yard there was concern that he may have had a recent [place] as well. Secondary to this an EKG was obtained which revealed no obvious signs of ischemia or dysrhythmia. A chest x-ray was obtained to rule out lung pathology such as a mass causing his symptoms. Basic blood work was also ordered to check for acute blood loss anemia acute kidney injury or electrolyte abnormality. The patient's troponin is 16 which is withinnormal range and under the 22 value listed in the cardiac algorithm for the 0-hour level. As the patient's symptoms of severe diaphoresis and vomiting roughly 1 week ago and the initial troponin is normal I do not feel the need fora second especially as he has no chest pain at this time. Blood work did show aleukocytosis with left shift and he also has elevation to his hemoglobin and hematocrit. There is concern this could be contraction secondary dehydration and therefore he was given 1 L of IV fluid. Despite these changes there are no clinically significant electrolyte abnormality or signs of acute kidney injury. The patient's D-dimer is also normal going against pulmonary embolus or dissection as a cause of his palpitations. Patient's chest x-ray showed changesconcerning for developing pneumonia which could be the cause of his recent boutsof shortness of breath and/or palpitation. However he does not have respiratorydistress or hypoxia or need for supplemental oxygen and he does not show findings concerning for sepsis. Therefore there is no need for admission to treat this. He will be placed on oral antibiotics. He understands that he still needs to follow-up with cardiology and have a potential Holter monitor study to further evaluate him for atrial fibrillation. However at this time as he is hemodynamically stable with cardiac workup showing no sign of ACS or acutedysrhythmia he is otherwise safe for discharge home History & Record Review Discussion w/independent historian: Patient Lab Data Attestation: I reviewed the patient's lab results. Labs: Laboratory Results - last 24 hr 03/09/25 06:06 WBC 13.8 H RBC 5.76 Hgb 18.5 H* Hct 54.2 H MCV 94.1 H MCH 32.1 H MCHC 34.1 RDW Std Deviation 44.2 H RDW Coeff of Emil 12.9 Plt Count 276 MPV 10.9 Immature Gran % (Auto) 0.400 Neut % (Auto) 70.7 H Lymph % (Auto) 20.0 Mingo % (Auto) 8.1 Eos % (Auto) 0.4 Baso % (Auto) 0.4 Absolute Neuts (auto) 9.8 H Absolute Lymphs (auto) 2.76 Nucleated RBC % 0 D-Dimer Quant (PE/DVT) 0.34 Sodium 137 Potassium 4.0 Chloride 103 Carbon Dioxide 21.6 Anion Gap 13 BUN 10 Creatinine 0.84 Estim Creat Clear Calc 91.10 Est GFR (MDRD) Non-Af 95 BUN/Creatinine Ratio 11.4 Glucose 130 H Calcium 9.4 Magnesium 2.3 H Troponin T High Sens 16 TSH 2.680 Radiography Diagnostic Testing: Clinical Impression(s) from Imaging Studies Chest X-Ray 03/09/25 06:35 IMPRESSION: Interstitial densities in the lower lungs concerning for pulmonary edema or pneumonia. No pleural effusion or pneumothorax. Reading Location: [facility] 2 view chest x-ray is interpreted by the emergency medicine physician reveals haziness in the bilateral lobes concerning for developing infection Discharge Plan Triage Chief Complaint: Palpitations ED Provider: Rich Robbins Dx/Rx/DC Orders Clinical Impression: Palpitations, Pneumonia, CAD (coronary artery disease), Hyperlipemia Instructions: ED Palpitations, ED Pneumonia (Adult) Prescriptions: New azithromycin [Zithromax Z-Farzad] 250 mg tablet See Rx Instructions .ROUTE .COMPLEX Qty: 6 0RF Rx Instructions: For 250 mg dose pack: take 500 mg today (day 1), then 250 mg for 4 days (days2-5) cefdinir 300 mg capsule 300 mg PO BID 7 Days Qty: 14 0RF No Action aspirin 81 mg tablet,delayed release (DR/EC) 81 mg PO DAILY tamsulosin [Flomax] 0.4 mg capsule 0.4 mg PO QHS Qty: 30 1RF nitroglycerin 0.3 mg tablet, sublingual 0.3 mg sublingual Q5M PRN (Reason: chest pain) Qty: 30 0RF Rx Instructions: do not exceed 3 doses per episode atorvastatin 40 mg tablet 40 mg PO DAILY Qty: 90 1RF tadalafil [Cialis] 5 mg tablet 5 mg PO DAILY Qty: 90 1RF carvedilol 6.25 mg tablet 6.25 mg PO BID Qty: 180 1RF Rx Instructions: must administer with a meal/food Primary Care Provider: Aisha Saavedra Referrals: Aisha Saavedra MD [Primary Care Provider] - Sanjay Arceo MD [Med Staff - Active Staff] - Activity Restrictions/Additional Instructions: Please take the antibiotics as directed to help resolve the infection/pneumonia that was seen on your x-ray. Still follow-up with cardiology as you may need a Holter monitor to truly diagnose abnormal heart rhythms such as atrial fibrillation. Return to the ER should you have any further concerns or worsening of symptoms. Print Language: Vietnamese Disposition Disposition: Home, Self Care What to do if you have Problems For any increased pain, shortness of breath, bleeding, nausea or vomiting, chestpain, or any unexpected problems, contact your Primary Care Provider. Call [facility] ([phone]) or report to the closest Emergency Room. Call 911 if necessary. 03/09/25 07 <Electronically signed by Rich Robbins DO> Cosigner Signature (if applicable): CC: Dr. Aisha Saavedra MD ~ Signed [facility] Work Phone: Evaluation note Note Date & Type Note Facility Evaluation note Diagnosis Onset Date Rupture of extensor tendon of finger resolved Rupture of extensor tendon of finger resolved Rupture of extensor tendon of finger resolved Skin change noneactive Immunization due noneactive Establishing care with new d miya, encounter for noneactive Erectile dysfunction noneact vania CAD (coronary artery disease) noneactive Mixed hyperlipidemia noneact vania Screening for AAA (abdominal aortic aneurysm) noneactive Inguinal hernia noneactive [facility] Work Phone: Evaluation note Note Date & Type Note Facility Evaluation note Diagnosis 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 Still follow-up with cardiology as you may need a Holter monitor to truly diagnose abnormal heart rhythms such as atrial fibrillation. Return to the ER should you have any further concerns or worsening of symptoms. [facility] Work Phone: Chief Complaint and Reason for [...] TENDON OF FINGER. RX HERE LEFT HAND FLOOR ASSOCIATE. EST CARE - PPW SENT Reason for [...] DISLOCATI ON XRAY LEFT HAND LEFT HAND FLOOR ASSOCIATE. EST CARE - PPW SENT RUPTURE OF [...] DISLOCATI ON XRAY LEFT HAND LEFT HAND FLOOR ASSOCIATE. EST CARE - PPW SENT SCREENING RUPTURE [...] Inguinal hernia January 30, 2025 8:56 am Chief Complaint Admit Date 6 M FU January 30, 2025 8:56 am PULSATION TINNITUS February 21, 2025 12:2 6pm palpitations March 09, 2025 5:58 am Chief Complaint Admit Date 6 M FU January 30, 2025 8:56 am PULSATION TINNITUS February 21, 2025 12:2 6pm palpitations March 09, 2025 5:58 am CAD ([place]entin) March 13, 2025 10:4 3am Family History Relationship Condition Age at Onset Recorded Date/T vicente father Malignant neoplasm 80 aunt Coronary artery disease Unknown uncle Coronary artery disease Unknown Relationship Condition Age at Onset Recorded Date/T vicente father Malignant neoplasm 80 Hypertension Unknown aunt Coronary artery disease Unknown uncle Coronary artery disease Unknown sister Hypertension Unknown Summary Purpose Advance Directives Advance Directive Response Recorded Date/ Time Do you have a Healthcare Power of Jd Edwards? No March 09, 2025 6:01am Additional Source Comments Care Teams (unrecognized sec [...] Status: Active Member Role Status Dates Parag iRchards MD Attending Provider, Referring Prov ider Active Team Status: Inactive Member Role Status Dates Dr. Aisha Saavedra MD Primary Care Pro vider, Attending Provider, Referring Provider Active Team Status: Active Member Role Status Dates Dr. Aisha Saavedra MD Primary Care Provider Active Dr. Ryan Paul MD Attending Provider Active [employer] Relationship Specialty Start Date End Date Cristopher Wylie MD [address] [place] [address] Surgeon Urology 02/01/24 Team Status: Inactive Member [...] February 21, 2025 End: February 21, 2025 Team Status: Inactive Member Role/Relationship Status Dates Dr. Aisha Saavedra MD Primary Care Provider Active Start: March 09, 2025 End: March 09, 2025 Dr. Rich Robbins , DO Emergency Provider Active Start: March 09, 2025 End: March 09, 2025 Team Status: Inactive Member Role/Relationship Status Dates Dr. Aisha Saavedra MD Primary Care Provider Active Start: March 13, 2025 End: March 13, 2025 Dr. Aisha Saavedra MD Referring Provider Active Start: March 13, 2025 End: March 13, 2025 Dr. Sanjay Arceo MD Attending Provider Active S tart: March 13, 2025 End: March 13, 2025 Goals (unrecognized section and content) Goals [...] section and content) DATE CREATED AUTHOR 02/03/2024 [facility] DATE CREATED AUTHOR AUTHOR'S ORGANIZ ATION 03/11/2025 [facility] FOR RECORDS PERTAINING TO PATIENTS [...] BE BASED ON THE PRIMARY CLINICAL RECORDS. [employer] provides no warranty or guarantee of the accuracy or completeness of information in this document.
== END | disposition home or self-care (01) ==
LOC: LAB 11:51
PROVIDERS: PCP Internal Medicine; Referring Provider Internal Medicine Cardiovascular Disease; Visit Provider Internal Medicine Cardiovascular Disease
DX: R00.2 Palpitations (principal)
CPT/HCPCS: 36415; 84443

== ENCOUNTER → 2025-04-08 | Outpatient (CLI) | payer MEDICARE, OTHER, SELFPAY ==
--- NOTE | 2025-04-08 06:08 | ECHOD_ITS ---
Reason For Study Reason For Study: CAD/ASHD Procedure This was a 2D Doppler, Color Flow transthoracic echocardiogram. Exam performed in department. Left Ventricle Normal LV size. The left ventricular ejection fraction is 65 %. Stage 1 diastolic dysfunction. No regional wall motion abnormalities noted. Right Ventricle Normal RV size. Normal systolic function. Atria Normal left atrium. Normal right atrium. Mitral Valve Normal mitral valve. Tricuspid Valve Normal tricuspid valve. Mild (1+) tricuspid valve insufficiency. Pulmonary artery systolic pressure is 28 mmHg. Aortic Valve Normal aortic valve. Pulmonic Valve Normal pulmonic valve. Great Vessels Normal aortic root. The pulmonary artery is normal size. Inferior vena cava collapse with respiration. Pericardium/Pleural No pericardial effusion. MMode/2D Measurements & Calculations LVIDd: 4.6 cm IVSd: 1.2 cm Ao root diam: 3.4 cm LVIDs: 3.4 cm LVPWd: 1.0 cm FS: 26.1 % LAV(MOD-bp): 78.8 ml LVAd ap4: 32.2 cm2 SV(MOD-sp4): 71.6 ml LAV(MOD-bp) Indexed: 38.2 ml/m2 LVLd ap4: 8.1 cm SI(MOD-sp4): 34.7 ml/m2 LAV(MOD-sp2): 93.1 ml EDV(MOD-sp4): 106.0 ml LAV(MOD-sp4): 67.6 ml EDV(sp4-el): 108.7 ml LVAs ap4: 16.0 cm2 LVLs ap4: 6.1 cm ESV(MOD-sp4): 34.4 ml ESV(sp4-el): 35.4 ml EF(MOD-sp4): 67.5 % EF(sp4-el): 67.5 % SV(sp4-el): 73.3 ml LA A4 area: 22.5 cm2 LA dimension(2D): 4.2 cm RA A4 area: 22.5 cm2 Time Measurements MV dec time: 0.18 sec Doppler Measurements & Calculations MV E max baron: 59.0 cm/sec Lat Peak E' Baron: 10.5 cm/sec Med Peak E' Baron: 7.3 cm/sec MV A max baron: 65.1 cm/sec E/E' lat: 5.6 E/E' med: 8.1 MV E/A: 0.91 MV V2 max: 73.3 cm/sec Ao V2 max: 152.5 cm/sec MV max P.1 mmHg MV dec slope: 342.2 cm/sec2 Ao max P.3 mmHg MV V2 mean: 43.1 cm/sec Ao V2 mean: 100.2 cm/sec MV mean P.82 mmHg Ao mean P.7 mmHg MV V2 VTI: 28.5 cm Ao V2 VTI: 35.0 cm AV (velocity ratio): 0.72 LV V1 max: 100.2 cm/sec PA V2 max: 85.8 cm/sec TR max baron: 247.9 cm/sec LV V1 max P.0 mmHg PA V2 mean: 64.3 cm/sec TR max P.6 mmHg LV V1 mean P.8 mmHg LV V1 mean: 81.9 cm/sec LV V1 VTI: 25.3 cm ECHO/Echo Complete Interpretation Summary Normal LV size. The left ventricular ejection fraction is 65 %. Stage 1 diastolic dysfunction. Pulmonary artery systolic pressure is 28 mmHg. Ordering Physician: Sanjay Arceo Referring Physician: Sanjay Arceo Performed By: Tabatha Lassiter RCS
--- OUTSIDE RECORDS SUMMARY | 2025-04-08 06:10 | XMS RPT_ITS | CCD ---
Author Organization [facility] CliniSymd Care Team Providers Care Broadcast Program Director Name Role Phone JOSE Montaño Attending Provider [...] Dr. Aisha Saavedra MD Primary Care Provider [phone]) Dr. Aisha Saavedra MD Attending Provider Dr. Aisha Saavedra MD Referring Provider Dr. Rich Robbins DO Emergency Provider Dr. Sanjay Arceo MD Attending Provider [phone] Dr. Rich Robbins DO Attending Provider Dr. Sanjay Arceo MD Referring Provider [phone] Aisha Saavedra Primary Care Unavailable Rich Robbins Attending Unavailable Sanjay Arceo Attending Unavailable Aisha Saavedra Primary Care Unavailable Sanjay Arceo Referring Unavailable [place], Aisha Attending Unavailable [place], Aisha Primary Care Unavailable Quentin, Aisha Referring Unavailable Quentin, Aisha Attending Unavailable [place], Aisha Primary Care Unavailable [place], Aisha Referring Unavailable Quentin, Aisha Referring Unavailable Quentin, Aisha Primary Care Unavailable Adis, [place] Attending Unavailable Quentin, Aisha Referring Unavailable [place], Aisha Attending Unavailable [place], Aisha Primary Care Unavailable [place], Aisha Referring Unavailable Quentin, Aisha Attending Unavailable [place], Aisha Primary Care Unavailable [place], Aisha Primary Care Unavailable Adis, Sanjay Referring Unavailable Adis, [place] Attending Unavailable Allergies Allergy Classification Reported Allergen(s) Allergy Type Date of Onset Reaction(s) Facility (4 sources) Naproxen Drug Allergy 01-30-2025 palpitations [facility] (1 source) Naproxen Drug Allergy 01-30-2025 [facility] Repository Medications Current Medications Medication Drug Class(es) Dates Sig (Normalized) Sig (Original) aspirin 81 mg delayed release oral tablet (11 sources) Platelet Aggregation Inhibitor, Nonsteroidal Anti-inflammatory Drug Start: 08-31-2023 take 1 tablet by mouth once daily Aspirin 81 mg tablet,delayed release (DR/EC) Active 81 mg PO DAILY August 31, 2023 1:00am 24 hr metoprolol succinate 50 mg extended release oral tablet (1 source) beta-Adrenergic Alanis Start: 03-13-2025 take 1 tablet by mouth once daily Metoprolol Succinate (Toprol Xl) 50 mg tablet extended release 24 hr Active 50 mg PO daily March 13, 2025 12:00am nitroglycerin 0.3 mg sublingual tablet (6 sources) Nitrate Vasodilator Start: 05-28-2024 Nitroglycerin 0.3 mg tablet, sublingual Active 0.3 mg SL Q5M as needed for chest pain May 28, 2024 12:00am do not exceed 3 doses per episode tamsulosin hydrochloride 0.4 mg oral capsule (6 sources) alpha-Adrenergic Alanis Start: 01-30-2025 take 1 capsule by mouth at bedtime Tamsulosin (Flomax) 0.4 mg capsule Active 0.4 mg PO AT BEDTIME 13 09January 30, 2025 12:00am Completed/Discontinued Medications Medication Drug Class(es) Dates Sig (Normalized) Sig (Original) atorvastatin 40 mg oral tablet (20 sources) HMG-CoA Reductase Inhibitor Start: 08-31-2023 End: 08-23-2024 take 1 tablet by mouth once daily Atorvastatin 40 mg tablet Discontinued 40 mg PO DAILY 90 March 05, 2024 8:11am August 23, 2024 5:05pm azithromycin 250 mg oral tablet (3 sources) Macrolide Antimicrobial Start: 03-09-2025 End: 03-13-2025 Azithromycin (Zithromax Z-Farzad) 250 mg tablet Discontinued 0 PO .COMPLEX 6 0 March 09, 2025 12:00am March 13, 2025 10:54am For 250 mg dose pack: take 500 mg today (day 1), then 250 mg for 4 days (days 2-5) 24 hr buPROPion hydrochloride 150 mg extended release oral tablet (14 sources) Aminoketone Start: 12-28-2023 End: 08-01-2024 take 1 tablet by mouth once daily in the morning Bupropion Hcl (Wellbutrin Xl) 150 mg tablet extended release 24 hr Discontinued 150 mg PO EVERY MORNING 90 February 08, 2024 11:08am August 01, 2024 10:53am carvedilol 6.25 mg oral tablet (20 sources) alpha-Adrenergic Alanis, beta-Adrenergic Alanis Start: 08-31-2023 End: 03-13-2025 take 1 tablet by mouth twice daily at mealtime Carvedilol 6.25 mg tablet Discontinued 6.25 mg PO TWICE A DAY 180 March 05, 2025 1:10pm March 13, 2025 11:50am must administer with a meal/food cefdinir 300 mg oral capsule (3 sources) Cephalosporin Antibacterial Start: 03-09-2025 End: 03-13-2025 take 1 capsule by mouth twice daily Cefdinir 300 mg capsule Discontinued 300 mg PO TWICE A DAY 14 7 0 March 09, 2025 12:00am March 13, 2025 10:55am clobetasol propionate 0.5 mg/ml medicated shampoo (12 sources) Corticosteroid Start: 09-20-2024 End: 09-27-2024 Clobetasol [...] 2024 1:09am sildenafil 25 mg oral tablet (9 sources) Phosphodiesterase 5 Inhibitor Start: 10-13-2023 End: 11-08-2023 Sildenafil (Viagra) 25 mg tablet Discontinued 25 mg PO DAILY as needed for sexual activity 30 October 13, 2023 1:00am November 08, 2023 [...] for seeking consultation] 10-13-2023 Episodic Anxiety disorders (7 sources) Mixed anxiety and depressive disorder; Translations: [Anxiety disorder, unspecified] Onset: 01-30-2025 01-30-2025 Chronic Cardiac dysrhythmias (2 sources) Paroxysmal atrial fibrillation; Translations: [Paroxysmal atrial fibrillation] 03-13-2025 Chronic Cardiac dysrhythmias (4 sources) Palpitations; Translations: [Palpitations] Onset: 03-21-2025 03-09-2025 Episodic Coronary atherosclerosis and other heart disease (20 sources) Atherosclerotic heart disease of [place] coronary artery without angina pectoris; Translations: [Coronary atherosclerosis of unspecified type of vessel, [place] or graft] Onset: 03-13-2025 10-13-2023 Chronic Disorders of lipid metabolism (17 sources) Mixed hyperlipidemia; Translations: [Mixed hyperlipidemia] Onset: 03-13-2025 10-13-2023 Chronic Hyperplasia of prostate (6 sources) Benign prostatic hyperplasia; Translations: [Benign prostatic hyperplasia without lower urinary tract symptoms] Onset: 01-30-2025 01-30-2025 Chronic Immunizations and screening for infectious disease (8 sources) Encounter for immunization; Translations: [Need for prophylactic vaccination and inoculation against unspecified single disease] 10-13-2023 Episodic Miscellaneous mental health disorders (2 sources) 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; 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-01-2024 Chronic Mood disorders (1 source) Mood disorders; Translations: [Depression, unspecified] Onset: 01-30-2025 Other and ill-defined heart disease (4 sources) Heart disease; Translations: [Heart disease, unspecified] 02-25-2025 Chronic Other circulatory disease (6 sources) Elevated blood pressure; Translations: [Elevated blood-pressure reading, without diagnosis of hypertension] 01-30-2025 Episodic Other ear and sense organ disorders (1 source) Unspecified hearing loss, unspecified ear; Translations: [Unspecified hearing loss, unspecified ear] Onset: 08-01-2024 Chronic Other ear and sense organ disorders (6 sources) Tinnitus of vascular origin; Translations: [Pulsatile [...] unspecified] 02-01-2024 Chronic Other male genital disorders (6 sources) Disorder of ejaculation 01-30-2025 Episodic Other screening for suspected conditions (not mental disorders or infectious disease) (3 sources) Encounter for screening for cardiovascular disorders; Translations: [Screening for other and unspecified cardiovascular conditions] 10-13-2023 Episodic Other skin disorders (3 sources) Unspecified skin changes; Translations: [Other symptoms involving skin and integumentary tissues] 10-13-2023 Episodic Pneumonia (except that caused by tuberculosis or sexually transmitted disease) (3 sources) Pneumonia; Translations: [Pneumonia, unspecified organism] 03-09-2025 Episodic Sprains and strains (18 sources) Rupture of extensor tendon of finger; Translations: [Strain of extensor muscle, fascia and tendon of finger, unspecified finger at forearm level, initial encounter] 10-13-2023 Episodic Unclassified (6 sources) I25.10 - Atherosclerotic heart disease of [place] coronary artery without angina pectoris Results Test Name Value Interpretation Reference Range Facility Cardiology Visit Reporton Cardiology Visit Report [facility] [place] [address] [facility] [place] [address] OFFICE VISIT Date of Service: 03/13/25 MR#: [id number] Acct: [id number] Name: DREA MAX Rep #: [id number] : 1955 Provider: Dr. Sanjay Arceo MD Age/Sex: 69/M Location: [facility] [place] Status: Signed HPI HPI History of Present Illness Details: 69-year-old man with previous cardiac history of coronary artery disease status post angioplasty and stenting of an occluded obtuse marginal branch in 2011. He says that he has been doing well has been on his medications with no issues whatsoever. More recently however he has noted some palpitations on his digital watch. He has actually recorded these episodes a few times and they have noted that he has been in atrial fibrillation. The longest episode has been maybe 15 to 30 minutes. In 2012 when he had his angiogram he had a 50% stenosis of the right coronary artery and 100% stenosis of the proximal circumflex artery and had a 3.5 x 16 Promus drug-eluting stent placed. He was noted to be in sinus rhythm at that time. He was put on aspirin and carvedilol and clopidogrel and the latter was discontinued. He has had no dizziness or diaphoresis no near-syncope or syncope he has been compliant with the rest of his medications. His last echocardiogram performed in 2011 demonstrated preserved ejection fraction of 60%. He is quite active his last lipid profile demonstrates total cholesterol 133 HDL of 48 LDL of 67. His physical exam here today is unremarkable his electrocardiogram demonstrates sinus rhythm with possible left atrial enlargement. A rate of 65 beats is noted. Intake Vital Signs 01/30/25 09:07 03/09/25 05:59 03/13/25 10:47 Height 6 ft 6 ft 6 ft Weight: 186 lb BMI 25.2 BP 121/77 H Blood Pressure Location Lt brachial Position Sitting Respiration 16 Pulse 64 Pulse Source Monitor Intake Visit Reasons: CAD (Quentin) Phlebotomy Tech Required: No Accompanied by: Significant Other Is patient in pain?: No Allergies No Known Allergies Allergy (Unverified 03/13/25 10:54) Medications ???Medication ???Instructions ???Recorded ???Confirmed ???Type aspirin 81 mg tablet,delayed 81 mg PO DAILY 08/31/23 03/13/25 H istory release nitroglycerin 0.3 mg sublingual 0.3 mg sublingual Q5M PRN chest 03/13/25 Rx tablet pain #30 tabs atorvastatin 40 mg tablet 40 mg PO DAILY #90 tabs 08/23/24 0 03/13/25 Rx tamsulosin 0.4 mg capsule (Flomax) 0.4 mg PO QHS #30 caps 01/30/25 03/13/25 Rx tadalafil 5 mg tablet (Cialis) 5 mg PO DAILY #90 tabs 02/11/25 Rx metoprolol succinate 50 mg 50 mg PO QDAY #90 tabs 03/13/25 Rx tablet,extended release 24 hr (Toprol XL) Have you fallen in the past year?: No PFSH Medical History Mixed hyperlipidemia Hx of myocardial infarction Atherosclerosis of coronary artery of [place] heart without angina pectoris Skin cancer Heart disease Hearing problem Bone fracture Surgical History History of banding of hemorrhoid History of ankle surgery H/O rhinoplasty H/O heart artery stent Family History Father Cancer, Onset Age: 80 leukemia Hypertension Aunt CAD (coronary artery disease) Uncle CAD (coronary artery disease) Sister Hypertension Social History household members: significant other housing: house current occupational status: retired current occupation: worked in [employer] Home Smoking Status: Former smoker quit date: 08/15/15 pack-years: 40 Electronic Cigarette Use: not used alcohol intake: current alcohol intake frequency: a few times a month Alcohol type: hard liquor substance use type: marijuana what type of physical activity do you participate in: walking seatbelt use: always do you feel safe at home: Yes ROS Const Const: Positive for difficulty sleeping (difficulty staying asleep); Negative for fatigue, weakness, headache(s) or daytime sleepiness ENT ENT: Negative for headache(s), dizziness or Nosebleed/epistaxis Cardio Chest Pain: No Palpitations: Yes (watch stating AFib lasting 20 minutes ) Edema: None Resp Respiratory: Negative for SOB with activity, SOB at rest, SOB orthopnea SOB lying down or Cough GI GI: Negative nausea, vomiting or heartburn Neuro Neuro: Negative for dizziness, lightheadedness, near syncope, headache(s) or weakness Endo Endo: Negative for fatigue Cardiology Exam Const Appearance: cooperative, healthy appearing, no acute distress, well developed and well groomed Nutritional Appearance: average body habitus and well nourished [place] (more content not included)... Normal [facility] TSH DL <= 0.005 mIU/L QnOrde red By: Sanjay Arceo on 03-13-2025 TSH Qn 2.350 uIU/mL 0.300-4.200 [facility] Thyroid Stim Hormone (TSH)on 03-13-2025 TSH 2.350 uIU/mL Normal 0.300-4.200 [facility] Comment on above: Performed By: #### L 501.9520 ####[facility] [address] [facility]. [place], [place], [address] 12 Lead EKGon 03-09-2025 12 Lead EKG [facility] Cardiovascular Services [address] [place] [address] 12 Lead EKG 03/09/25 0612 MR#: [id number] Acct: [id number] Name: DREA MAX Rep #: [id number] : 1955 69 From: Sanjay Arceo MD [...] Abnormal ECG Confirmed by SANJAY ARCEO MD ([id number]), image editor ALIS FISCHER ([id number]) on 03/11/2025 7:28:20 AM Referred By: SIXTO Confirmed By: SANJAY ARCEO MD 03/11/25727 Sanjay Arceo MD CC: Dr. Aisha Saavedra MD; Rich Robbins DO Signed Normal [facility] Absolute lymphocyte countOrd ered By: Rich Robbins on 03-09-2025 Lymphocytes Auto (Unsp spec) [#/Vol] 2.76 10*3/uL 0.83-4.51 [facility] Absolute neutrophil countOrd ered By: Rich Robbins on 03-09-2025 Neutrophils (Bld) [#/Vol] 9.8 10*3/uL High 2.0-7.7 [facility] Anion gap in Serum or Plasma Ordered By: Rich Robbins on 03-09-2025 Anion gap [Moles/Vol] 13 mmol/L 5-15 [facility] Automated lymphocyte count a s percentage of total leukocytesOrdered By: Rich Robbins on 03-09-2025 Lymphocytes/100 WBC Auto (Unsp spec) 20.0 % - [facility] BUN/creatinine ratioOrdered By: Rich Robbins on 03-09-2025 Urea nitrogen/Creatinine [Mass ratio] 11.4 mg/mg - [facility] Basic Metabolic Profile (BMP )on 03-09-2025 BUN/CRE 11.4 RATIO Normal - [facility] Comment on above: Performed By: #### L 500.2500, L501.9520, L100.0100, L501.4021, L501.5200, L300.8000 ####[facility] [address] [place], [address] Calcium [Mass/Vol] 9.4 mg/dL Normal 7.6-11.0 [facility] Comment on above: Performed By: #### L 500.2500, L501.9520, L100.0100, L501.4021, L501.5200, L300.8000 ####[facility] [address] [place], [address] Chloride [Moles/Vol] 103 mmol/L Normal 98-108 [facility] Comment on above: Performed By: #### L 500.2500, L501.9520, L100.0100, L501.4021, L501.5200, L300.8000 ####[facility] [address] [place], [address] CO2 [Moles/Vol] 21.6 mmol/L Normal 21.0-32.0 [facility] Comment on above: Performed By: #### L 500.2500, L501.9520, L100.0100, L501.4021, L501.5200, L300.8000 ####[facility] [address] [place], [address] Creatinine [Mass/Vol] 0.84 mg/dL Normal 0.70-1.20 [facility] Comment on above: Performed By: #### L 500.2500, L501.9520, L100.0100, L501.4021, L501.5200, L300.8000 ####[facility] [address] [place], [address] ECRCL 91.10 ml/min Normal 50-250 [facility] Comment on above: Performed By: #### L 500.2500, L501.9520, L100.0100, L501.4021, L501.5200, L300.8000 ####[facility] [address] [place], [address] GAP 13 Normal 5-15 [facility] Comment on above: Performed By: #### L 500.2500, L501.9520, L100.0100, L501.4021, L501.5200, L300.8000 ####[facility] [address] [place], [address] GFR/1.73 sq M.predicted among non-blacks MDRD (S/P/Bld) [Vol rate/Area] 95 mL/min/{1.73_m2} Normal >60 [facility] Comment on above: Result Comment: mL/m in/1.73m2 CKD-EPI Creatinine Equation (2020) Performed By: #### L 500.2500, L501.9520, L100.0100, L501.4021, L501.5200, L300.8000 ####[facility] [address] [place], [address] Glucose [Mass/Vol] 130 mg/dL High 70-99 [facility] Comment on above: Performed By: #### L 500.2500, L501.9520, L100.0100, L501.4021, L501.5200, L300.8000 ####[facility] [address] [place], [address] Potassium [Moles/Vol] 4.0 mmol/L Normal 3.3-5.1 [facility] Comment on above: Performed By: #### L 500.2500, L501.9520, L100.0100, L501.4021, L501.5200, L300.8000 ####[facility] [address] [place], [address] Sodium [Moles/Vol] 137 mmol/L Normal 133-145 [facility] Comment on above: Performed By: #### L 500.2500, L501.9520, L100.0100, L501.4021, L501.5200, L300.8000 ####[facility] [address] [place], [address] Urea nitrogen [Mass/Vol] 10 mg/dL Normal 4-19 [facility] Comment on above: Performed By: #### L 500.2500, L501.9520, L100.0100, L501.4021, L501.5200, L300.8000 ####[facility] [address] [place], [address] Basophil percentageOrdered B y: Rich Robbins on 03-09-2025 Basophils/100 WBC (Bld) 0.4 % 0-1 [facility] CBC W/Diff, Automatedon 02-13 Hemoglobin (Bld) [Mass/Vol] 18.5 g/dL Invalid Interpretation Code 13.0-16.5 [facility] Comment on above: Result Comment: CRIT ICAL VALUE CALLED TO CHRISTIAN WISE 03/09/25 0642 Gregg Gutierrez. RESULTS READ BACK BY SAME. Performed By: #### L 500.2500, L501.9520, L100.0100, L501.4021, L501.5200, L300.8000 ####[facility] [address] [place], [address] Absolute Lymph 2.76 X10 3/uL Normal 0.83-4.51 [facility] Comment on above: Performed By: #### L 500.2500, L501.9520, L100.0100, L501.4021, L501.5200, L300.8000 ####[facility] [address] [place], [address] Absolute Neut 9.8 X10 3/uL High 2.0-7.7 [facility] Comment on above: Performed By: #### L 500.2500, L501.9520, L100.0100, L501.4021, L501.5200, L300.8000 ####[facility] [address] [place], [address] Basophils/100 WBC (Bld) 0.4 % Normal 0-1 [facility] Comment on above: Performed By: #### L 500.2500, L501.9520, L100.0100, L501.4021, L501.5200, L300.8000 ####[facility] [address] [place], [address] Eosinophils/100 WBC (Bld) 0.4 % Normal 0-5 [facility] Comment on above: Performed By: #### L 500.2500, L501.9520, L100.0100, L501.4021, L501.5200, L300.8000 ####[facility] [address] [place], [address] Erythrocyte distribution width (RBC) [Ratio] 12.9 % Normal 11.6-14.6 [facility] Comment on above: Performed By: #### L 500.2500, L501.9520, L100.0100, L501.4021, L501.5200, L300.8000 ####[facility] [address] [place], [address] Hematocrit (Bld) [Volume fraction] 54.2 % High 40-54 [facility] Comment on above: Performed By: #### L 500.2500, L501.9520, L100.0100, L501.4021, L501.5200, L300.8000 ####[facility] [address] [place], [address] IG% 0.400 Normal 0.0-0.9 [facility] Comment on above: Result Comment: IG% - Immature Granulocytes (promyelocytes, myelocytes and metamyelocytes) > 1% indicates that a LEFT SHIFT is Present. Performed By: #### L 500.2500, L501.9520, L100.0100, L501.4021, L501.5200, L300.8000 ####[facility] [address] [place], [address] Lymphocytes/100 WBC (Bld) 20.0 % Normal 19-41 [facility] Comment on above: Performed By: #### L 500.2500, L501.9520, L100.0100, L501.4021, L501.5200, L300.8000 ####[facility] [address] [place], [address] MCH (RBC) [Entitic mass] 32.1 pg High 27.0-32.0 [facility] Comment on above: Performed By: #### L 500.2500, L501.9520, L100.0100, L501.4021, L501.5200, L300.8000 ####[facility] [address] [place], [address] MCHC (RBC) [Mass/Vol] 34.1 g/dL Normal 32-36 [facility] Comment on above: Performed By: #### L 500.2500, L501.9520, L100.0100, L501.4021, L501.5200, L300.8000 ####[facility] [address] [place], [address] MCV (RBC) [Entitic vol] 94.1 fL High 80-94 [facility] Comment on above: Performed By: #### L 500.2500, L501.9520, L100.0100, L501.4021, L501.5200, L300.8000 ####[facility] [address] [place], [address] Monocytes/100 WBC (Bld) 8.1 % Normal 0-10 [facility] Comment on above: Performed By: #### L 500.2500, L501.9520, L100.0100, L501.4021, L501.5200, L300.8000 ####[facility] [address] [place], [address] Neutrophils/100 WBC (Bld) 70.7 % High 47-70 [facility] Comment on above: Performed By: #### L 500.2500, L501.9520, L100.0100, L501.4021, L501.5200, L300.8000 ####[facility] [address] [place], [address] Nucleated RBC (Bld) [#/Vol] 0 10*3/uL Normal 0-5 [facility] Comment on above: Performed By: #### L 500.2500, L501.9520, L100.0100, L501.4021, L501.5200, L300.8000 ####[facility] [address] [place], [address] Platelet mean volume (Bld) [Entitic vol] 10.9 fL Normal 6.2-12.0 [facility] Comment on above: Performed By: #### L 500.2500, L501.9520, L100.0100, L501.4021, L501.5200, L300.8000 ####[facility] [address] [place], [address] Platelets (Bld) [#/Vol] 276 10*3/uL Normal 150-450 [facility] Comment on above: Performed By: #### L 500.2500, L501.9520, L100.0100, L501.4021, L501.5200, L300.8000 ####[facility] [address] [place], [address] RBC (Bld) [#/Vol] 5.76 10*6/uL Normal 4.6-6.2 [facility] Comment on above: Performed By: #### L 500.2500, L501.9520, L100.0100, L501.4021, L501.5200, L300.8000 ####[facility] [address] [place], [address] RDW SD 44.2 fl High 35.1-43.9 [facility] Comment on above: Performed By: #### L 500.2500, L501.9520, L100.0100, L501.4021, L501.5200, L300.8000 ####[facility] [address] [place], [address] WBC (Bld) [#/Vol] 13.8 10*3/uL High 4.4-11.0 [facility] Comment on above: Performed By: #### L 500.2500, L501.9520, L100.0100, L501.4021, L501.5200, L300.8000 ####[facility] [address], [address] Carbon dioxide, total [Moles /volume] in Central venous bloodOrdered By: Rich Robbins on 03-09-2025 CO2 [Moles/Vol] 21.6 mmol/L 21.0-32.0 [facility] Chest PA and Lateralon 03-09 Chest PA and Lateral [facility] Imaging Services [address] [place] [address] Chest PA and Lateral MR#: [id number] Acct: [id number] Name: DREA MAX Rep #: [id number] : 1955 M 69 From: Lisa Serra MD PCP: Dr. Aisha Saavedra MD Status: [facility] ER Study: Chest PA and Lateral Date of Exam: 03/09/25 Exam# [id number] Ordering Dr: Rich Robbins DO PROCEDURE: CHEST [...] No pleural effusion or pneumothorax. Reading Location: [facility] CC: Dr. Aisha Saavedra MD; Rich Robbins DO Programming Internship: Signed Normal [facility] Chloride assayOrdered By: Arabella Robbins on 03-09-2025 Chloride [Moles/Vol] 103 mmol/L 98-108 [facility] D-Dimer Quantitative (DVT/PE )on 03-09-2025 D-DIMER QUANT 0.34 FEU/ug/m Normal 0.27-0.49 [facility] Comment on above: Result Comment: NORM AL D-Dimer level (<0.50) indicates no DVT or PE. Performed By: #### L 500.2500, L501.9520, L100.0100, L501.4021, L501.5200, L300.8000 ####[facility] [address] [place], [address] Emergency Department Summary on 03-09-2025 Emergency Department Summary [facility] Medical Records Department [address] [place] [address] Emergency Department Summary 03/09/25 MR#: [id number] Acct: [id number] Name: DREA MAX Rep #: [id number] : 1955 69 From: Rich Robibns DO PCP: Dr. Aisha Saavedra MD Status:REG [...] has an appointment set up with the microfilm camera operator Dr. Arceo next week. He states however [...] throughout the night he presents for evaluation [facility] [facility] Medical History Mixed hyperlipidemia Hx of myocardial infarction Atherosclerosis of coronary artery of [place] heart without angina pectoris Skin cancer Heart [...] occupational status: retired current occupation: worked in [employer] Smoking Status: Former smoker quit date: 08/15/15 [...] Neurologic: Denies headache(s) Psychiatric Psychiatric: Reports anxiety Hematologic/Lymphati c Hematologic/Lymphati c: Denies easy bleeding or easy bruising EXAM [...] well nourished (more content not included)... Normal [facility] Eosinophil percentageOrdered By: Rich Robbins on 03-09-2025 Eosinophils/100 WBC (Bld) 0.4 % 0-5 [facility] Erythrocyte distribution wid th ratioOrdered By: Rich Robbins on 03-09-2025 Erythrocyte distribution width (RBC) [Ratio] 12.9 % 11.6-14.6 [facility] Erythrocyte distribution wid th standard deviationOrdered By: Rich Robbins on 03-09-2025 Erythrocyte distribution width (RBC) [Ratio] 44.2 fl High 35.1-43.9 [facility] Glomerular filtration rate ( GFR) estimation/1.73 sq m using serum, plasma, or whole bOrdered By: Rich Robbins on 03-09-2025 GFR/1.73 sq M.predicted among non-blacks MDRD (S/P/Bld) [Vol rate/Area] 95 mL/min/{1.73_m2} >60 [facility] Comment on above: mL/min/1.73m2 CKD-EP I Creatinine Equation (2020) Hematocrit Auto (Bld) [Volum e fraction]Ordered By: Rich Robbins on 03-09-2025 Hematocrit (Bld) [Volume fraction] 54.2 % High 40-54 [facility] Hemoglobin measurementOrdere d By: Rich Robbnis on 03-09-2025 Hemoglobin (Bld) [Mass/Vol] 18.5 g/dL High 13.0-16.5 [facility] Comment on above: CRITICAL VALUE [place]BELL D TO CHRISTIAN LAXITPK76/26/25 0642 Gregg Gutierrez.RESULTS READ BACK BY SAME. Immature granulocytes/100 WB C Auto (Bld)Ordered By: Rich Robbins on 03-09-2025 Immature granulocytes/100 WBC (Bld) 0.400 % 0.0-0.9 [facility] Comment on above: IG% - Immature Granu locytes (promyelocytes, myelocytes and metamyelocytes) > 1% indicates that a LEFT SHIFT is Present. L501.4021on 03-09-2025 Trop T High Sen 16 ng/L Normal <=22 [facility] Comment on above: Performed By: #### L 500.2500, L501.9520, L100.0100, L501.4021, L501.5200, L300.8000 ####[facility] [address] [place], [place], [id number] MCV (mean corpuscular volume ) determinationOrdered By: Rich Robbins on 03-09-2025 MCV (RBC) [Entitic vol] 94.1 fL High 80-94 [facility] Magnesiumon 03-09-2025 Magnesium [Mass/Vol] 2.3 mg/dL High 1.5-2.2 [facility] Comment on above: Performed By: #### L 500.2500, L501.9520, L100.0100, L501.4021, L501.5200, L300.8000 ####[facility] [address] [place], [address] Magnesium measurement (mass/ volume)Ordered By: Rich Robbins on 03-09-2025 Magnesium (Unsp spec) [Mass/Vol] 2.3 mg/dL High 1.5-2.2 [facility] Mean corpuscular hemoglobin (MCH) determinationOrdered By: Rich Robbins on 03-09-2025 MCH (RBC) [Entitic mass] 32.1 pg High 27.0-32.0 [facility] Mean corpuscular hemoglobin concentration (MCHC) determinationOrdered By: Rich Robbins on 03-09-2025 MCHC (RBC) [Mass/Vol] 34.1 g/dL 32-36 [facility] Mean platelet volume determi nationOrdered By: Rich Robbins on 03-09-2025 Platelet mean volume (Bld) [Entitic vol] 10.9 fL 6.2-12.0 [facility] Monocyte percentageOrdered B y: Rich Robbins on 03-09-2025 Monocytes/100 WBC (Bld) 8.1 % 0-10 [facility] Neutrophil percentageOrdered By: Rich Robbins on 03-09-2025 Neutrophils/100 WBC (Bld) 70.7 % High 47-70 [facility] Nucleated red blood cell per centageOrdered By: Rich Robbins on 03-09-2025 Nucleated RBC/100 WBC (Bld) [Ratio] 0 % 0-5 [facility] Platelet countOrdered By: Arabella Robbins on 03-09-2025 Platelets (Bld) [#/Vol] 276 10*3/uL 150-450 [facility] Potassium measurement (mass/ volume)Ordered By: Rich Robbins on 03-09-2025 Potassium (Unsp spec) [Mass/Vol] 4.0 mmol/L 3.3-5.1 [facility] RBC Auto (Bld) [#/Vol]Ordere d By: Rich Robbins on 03-09-2025 RBC (Bld) [#/Vol] 5.76 10*6/uL 4.6-6.2 [facility] Serum creatinine measurement (mass/volume)Ordered By: Rich Robbins on 03-09-2025 Creatinine [Mass/Vol] 0.84 mg/dL 0.70-1.20 [facility] Serum glucose measurement (m ass/volume)Ordered By: Rich Robbins on 03-09-2025 Glucose [Mass/Vol] 130 mg/dL High 70-99 [facility] Serum or plasma calcium marlee urement (mass/volume)Ordered By: Rich Robbins on 03-09-2025 Calcium [Mass/Vol] 9.4 mg/dL 7.6-11.0 [facility] Serum or plasma urea nitroge n measurement (mass/volume)Ordered By: Rich Robbins on 03-09-2025 Urea nitrogen [Mass/Vol] 10 mg/dL 4-19 [facility] Sodium levelOrdered By: Abel Robbins on 03-09-2025 Sodium [Moles/Vol] 137 mmol/L 133-145 [facility] TSH DL <= 0.005 mIU/L QnOrde red By: Rich Robbins on 03-09-2025 TSH Qn 2.680 uIU/mL 0.300-4.200 [facility] Thyroid Stim Hormone (TSH)on 03-09-2025 TSH 2.680 uIU/mL Normal 0.300-4.200 [facility] Comment on above: Performed By: #### L 500.2500, L501.9520, L100.0100, L501.4021, L501.5200, L300.8000 ####[facility] [address] [place], [address] Troponin T HS 2 HRon 025 Trop T High Sen Normal <=22 [facility] Comment on above: Result Comment: Kunal rivera OM: Ordered Performed By: #### L 499.0042 #### [facility] [address] [place], [place], [address] Troponin T.cardiac [Mass/vol ume] in Serum or Plasma by High sensitivity methodOrdered By: Rich Robbins on 03-09-2025 Troponin T.cardiac High sensitivity method [Mass/Vol] 16 ng/L <22 [facility] White blood cell (WBC) count Ordered By: Rich Robbins on 03-09-2025 WBC (Bld) [#/Vol] 13.8 10*3/uL High 4.4-11.0 [facility] Magnetic resonance imaging r eportOrdered By: James Nj on 02-23-2025 Study report [facility] Imaging Services [address] [place], [place] [address] Brain W/WO Contrast MR#: [id number] Acct: [id number] Name: DREA MAX Rep #: [id number] : 1955 M 69 From: Lynn Nj MD PCP: Dr. Aisha Saavedra MD Status: REG CLI Study:Brain W/WO Contrast Date of Exam: 02/21/25 Exam# [id number] Ordering Dr: Aisha Saavedra MD PROCEDURE: BRAIN [...] IMPRESSION: No etiology for tinnitus. Reading Location: [facility] CC: Dr. Aisha Saavedra MD ~ Programming Internship: Signed [facility] Brain W/WO Contraston 2024 Brain W/WO Contrast [facility] Imaging Services [address] [place] [address] Brain W/WO Contrast MR#: [id number] Acct: [id number] Name: DREA MAX Rep #: [id number] : 1955 M 69 From: James Nj MD PCP: Dr. Aisha Saavedra MD Status: REG CLI Study: Brain W/WO Contrast Date of Exam: 02/21/25 Exam# [id number] Ordering Dr: Aisha Saavedra MD PROCEDURE: BRAIN [...] IMPRESSION: No etiology for tinnitus. Reading Location: [facility] CC: Dr. Aisha Saavedra MD Programming Internship: Signed Normal [facility] Absolute lymphocyte countOrd ered By: Aisha Saavedra on 01-30-2025 Lymphocytes Auto (Unsp spec) [#/Vol] 2.22 10*3/uL 0.83-4.51 [facility] Absolute neutrophil countOrd ered By: Aisha Saavedra on 01-30-2025 Neutrophils (Bld) [#/Vol] 4.9 10*3/uL 2.0-7.7 [facility] Anion gap in Serum or Plasma Ordered By: Aisha Saavedra on 01-30-2025 Anion gap [Moles/Vol] 9 mmol/L 5-15 [facility] Automated lymphocyte count a s percentage of total leukocytesOrdered By: Aisha Saavedra on 01-30-2025 Lymphocytes/100 WBC Auto (Unsp spec) 27.1 % 19-41 [facility] BUN/creatinine ratioOrdered By: Aisha Saavedra on 01-30-2025 Urea nitrogen/Creatinine [Mass ratio] 21.1 mg/mg High 10-20 [facility] Basophil percentageOrdered B y: Aisha Saavedra on 01-30-2025 Basophils/100 WBC (Bld) 0.5 % 0-1 [facility] Bilirubin, totalOrdered By: Aisha Saavedra on 01-30-2025 Bilirubin [Mass/Vol] 0.52 mg/dL 0.00-1.30 [facility] CBC W/Diff, Automatedon 01-13 Absolute Lymph 2.22 X10 3/uL Normal 0.83-4.51 [facility] Comment on above: Performed By: #### L 100.0100, L501.9940, L500.4050, L500.4100 #### [facility] [address] [place], [address] Absolute Neut 4.9 X10 3/uL Normal 2.0-7.7 [facility] Comment on above: Performed By: #### L 100.0100, L501.9940, L500.4050, L500.4100 #### [facility] [address] [place], [address] Basophils/100 WBC (Bld) 0.5 % Normal 0-1 [facility] Comment on above: Performed By: #### L 100.0100, L501.9940, L500.4050, L500.4100 #### [facility] [address] [place], [address] Eosinophils/100 WBC (Bld) 2.0 % Normal 0-5 [facility] Comment on above: Performed By: #### L 100.0100, L501.9940, L500.4050, L500.4100 #### [facility] [address] [place], [address] Erythrocyte distribution width (RBC) [Ratio] 13.0 % Normal 11.6-14.6 [facility] Comment on above: Performed By: #### L 100.0100, L501.9940, L500.4050, L500.4100 #### [facility] [address] [place], [address] Hematocrit (Bld) [Volume fraction] 47.6 % Normal 40-54 [facility] Comment on above: Performed By: #### L 100.0100, L501.9940, L500.4050, L500.4100 #### [facility] [address] [place], [address] Hemoglobin (Bld) [Mass/Vol] 15.9 g/dL Normal 13.0-16.5 [facility] Comment on above: Performed By: #### L 100.0100, L501.9940, L500.4050, L500.4100 #### [facility] [address] [place], [address] IG% 0.200 Normal 0.0-0.9 [facility] Comment on above: Result Comment: IG% - Immature Granulocytes (promyelocytes, myelocytes and metamyelocytes) > 1% indicates that a LEFT SHIFT is Present. Performed By: #### L 100.0100, L501.9940, L500.4050, L500.4100 #### [facility] [address] [place], [address] Lymphocytes/100 WBC (Bld) 27.1 % Normal 19-41 [facility] Comment on above: Performed By: #### L 100.0100, L501.9940, L500.4050, L500.4100 #### [facility] [address] [place], [address] MCH (RBC) [Entitic mass] 31.5 pg Normal 27.0-32.0 [facility] Comment on above: Performed By: #### L 100.0100, L501.9940, L500.4050, L500.4100 #### [facility] [address] [place], [address] MCHC (RBC) [Mass/Vol] 33.4 g/dL Normal 32-36 [facility] Comment on above: Performed By: #### L 100.0100, L501.9940, L500.4050, L500.4100 #### [facility] [address] [place], [address] MCV (RBC) [Entitic vol] 94.3 fL High 80-94 [facility] Comment on above: Performed By: #### L 100.0100, L501.9940, L500.4050, L500.4100 #### [facility] [address] [place], [address] Monocytes/100 WBC (Bld) 10.5 % High 0-10 [facility] Comment on above: Performed By: #### L 100.0100, L501.9940, L500.4050, L500.4100 #### [facility] [address] [place], [address] Neutrophils/100 WBC (Bld) 59.7 % Normal 47-70 [facility] Comment on above: Performed By: #### L 100.0100, L501.9940, L500.4050, L500.4100 #### [facility] [address] [place], [address] Nucleated RBC (Bld) [#/Vol] 0 10*3/uL Normal 0-5 [facility] Comment on above: Performed By: #### L 100.0100, L501.9940, L500.4050, L500.4100 #### [facility] [address] [place], [address] Platelet mean volume (Bld) [Entitic vol] 11.3 fL Normal 6.2-12.0 [facility] Comment on above: Performed By: #### L 100.0100, L501.9940, L500.4050, L500.4100 #### [facility] [address] [place], [address] Platelets (Bld) [#/Vol] 251 10*3/uL Normal 150-450 [facility] Comment on above: Performed By: #### L 100.0100, L501.9940, L500.4050, L500.4100 #### [facility] [address] [place], [address] RBC (Bld) [#/Vol] 5.05 10*6/uL Normal 4.6-6.2 [facility] Comment on above: Performed By: #### L 100.0100, L501.9940, L500.4050, L500.4100 #### [facility] [address] [place], [address] RDW SD 44.9 fl High 35.1-43.9 [facility] Comment on above: Performed By: #### L 100.0100, L501.9940, L500.4050, L500.4100 #### [facility] [address] [place], [address] WBC (Bld) [#/Vol] 8.2 10*3/uL Normal 4.4-11.0 [facility] Comment on above: Performed By: #### L 100.0100, L501.9940, L500.4050, L500.4100 #### [facility] [address] [place], [address] Calculated very low density lipoprotein (VLDL) cholesterol measurementOrdered By: Aishajohn Saavedra on 01-30-2025 Calculated very low density lipoprotein (VLDL) cholesterol measurement 18 mg/dL 5-40 [facility] Carbon dioxide, total [Moles /volume] in Central venous bloodOrdered By: Aisha Saavedra on 01-30-2025 CO2 [Moles/Vol] 23.8 mmol/L 21.0-32.0 [facility] Chloride assayOrdered By: Joe ycrachel Saavedra on 01-30-2025 Chloride [Moles/Vol] 107 mmol/L 98-108 [facility] Comprehensive Metabolic Prof ilon 01-30-2025 Albumin [Mass/Vol] 4.2 g/dL Normal 3.4-4.8 [facility] Comment on above: Performed By: #### L 100.0100, L501.9940, L500.4050, L500.4100 #### [facility] [address] [place], [address] Albumin/Globulin [Mass ratio] 1.5 {ratio} Normal 0.9-2.4 [facility] Comment on above: Performed By: #### L 100.0100, L501.9940, L500.4050, L500.4100 #### [facility] [address] [place], [address] ALK PHOS 95 U/L Normal 40-129 [facility] Comment on above: Performed By: #### L 100.0100, L501.9940, L500.4050, L500.4100 #### [facility] [address] [place], [address] ALT [Catalytic activity/Vol] 13 U/L Normal <=46 [facility] Comment on above: Performed By: #### L 100.0100, L501.9940, L500.4050, L500.4100 #### [facility] [address] [place], [address] AST [Catalytic activity/Vol] 16 U/L Normal <=37 [facility] Comment on above: Performed By: #### L 100.0100, L501.9940, L500.4050, L500.4100 #### [facility] [address] [place], [address] Bilirubin [Mass/Vol] 0.52 mg/dL Normal 0.00-1.30 [facility] Comment on above: Performed By: #### L 100.0100, L501.9940, L500.4050, L500.4100 #### [facility] [address] [place], [address] BUN/CRE 21.1 RATIO High 10-20 [facility] Comment on above: Performed By: #### L 100.0100, L501.9940, L500.4050, L500.4100 #### [facility] [address] [place], [address] Calcium [Mass/Vol] 9.7 mg/dL Normal 7.6-11.0 [facility] Comment on above: Performed By: #### L 100.0100, L501.9940, L500.4050, L500.4100 #### [facility] [address] [place], [address] Chloride [Moles/Vol] 107 mmol/L Normal 98-108 [facility] Comment on above: Performed By: #### L 100.0100, L501.9940, L500.4050, L500.4100 #### [facility] [address] [place], [address] CO2 [Moles/Vol] 23.8 mmol/L Normal 21.0-32.0 [facility] Comment on above: Performed By: #### L 100.0100, L501.9940, L500.4050, L500.4100 #### [facility] [address] [place], [address] Creatinine [Mass/Vol] 0.81 mg/dL Normal 0.70-1.20 [facility] Comment on above: Performed By: #### L 100.0100, L501.9940, L500.4050, L500.4100 #### [facility] [address] [place], [address] GAP 9 Normal 5-15 [facility] Comment on above: Performed By: #### L 100.0100, L501.9940, L500.4050, L500.4100 #### [facility] [address] [place], [address] GFR/1.73 sq M.predicted among non-blacks MDRD (S/P/Bld) [Vol rate/Area] 96 mL/min/{1.73_m2} Normal >60 [facility] Comment on above: Result Comment: mL/m in/1.73m2 CKD-EPI Creatinine Equation (2020) Performed By: #### L 100.0100, L501.9940, L500.4050, L500.4100 #### [facility] [address] [place], [address] Globulin (S) [Mass/Vol] 2.8 g/dL Normal 2.2-4.2 [facility] Comment on above: Performed By: #### L 100.0100, L501.9940, L500.4050, L500.4100 #### [facility] [address] [place], [address] Glucose [Mass/Vol] 97 mg/dL Normal 70-99 [facility] Comment on above: Performed By: #### L 100.0100, L501.9940, L500.4050, L500.4100 #### [facility] [address] [place], [address] Potassium [Moles/Vol] 4.5 mmol/L Normal 3.3-5.1 [facility] Comment on above: Performed By: #### L 100.0100, L501.9940, L500.4050, L500.4100 #### [facility] [address] [place], [address] Sodium [Moles/Vol] 140 mmol/L Normal 133-145 [facility] Comment on above: Performed By: #### L 100.0100, L501.9940, L500.4050, L500.4100 #### [facility] [address] [place], [address] T PROT 7.0 g/dL Normal 5.9-8.4 [facility] Comment on above: Performed By: #### L 100.0100, L501.9940, L500.4050, L500.4100 #### [facility] [address] [place], [address] Urea nitrogen [Mass/Vol] 17 mg/dL Normal 4-19 [facility] Comment on above: Performed By: #### L 100.0100, L501.9940, L500.4050, L500.4100 #### [facility] [address] [place], [address] Eosinophil percentageOrdered By: Aisha Saavedra on 01-30-2025 Eosinophils/100 WBC (Bld) 2.0 % 0-5 [facility] Erythrocyte distribution wid th ratioOrdered By: Aisha Saavedra on 01-30-2025 Erythrocyte distribution width (RBC) [Ratio] 13.0 % 11.6-14.6 [facility] Erythrocyte distribution wid th standard deviationOrdered By: Aisha Saavedra on 01-30-2025 Erythrocyte distribution width (RBC) [Ratio] 44.9 fl High 35.1-43.9 [facility] Glomerular filtration rate ( GFR) estimation/1.73 sq m using serum, plasma, or whole bOrdered By: Aisha Saavedra on 01-30-2025 GFR/1.73 sq M.predicted among non-blacks MDRD (S/P/Bld) [Vol rate/Area] 96 mL/min/{1.73_m2} >60 [facility] Comment on above: mL/min/1.73m2 CKD-EP I Creatinine Equation (2020) Hematocrit Auto (Bld) [Volum e fraction]Ordered By: Aisha Saavedra on 01-30-2025 Hematocrit (Bld) [Volume fraction] 47.6 % 40-54 [facility] Hemoglobin measurementOrdere d By: Aisha Saavedra on 01-30-2025 Hemoglobin (Bld) [Mass/Vol] 15.9 g/dL 13.0-16.5 [facility] Immature granulocytes/100 WB C Auto (Bld)Ordered By: Aisha Saavedra on 01-30-2025 Immature granulocytes/100 WBC (Bld) 0.200 % 0.0-0.9 [facility] Comment on above: IG% - Immature Granu locytes (promyelocytes, myelocytes and metamyelocytes) > 1% indicates that a LEFT SHIFT is Present. LDL calc ser/plasOrdered By: Aisha Saavedra on 01-30-2025 Cholesterol in LDL [Mass/Vol] 67 mg/dL [facility] Comment on above: Gzuzmwecsg=192-199 m g/dL & Higher Jpwz=278 mg/dL or greater Laboratory - Chemistry and C hemistry - challengeOrdered By: Aisha Saavedra on 01-30-2025 AST [Catalytic activity/Vol] 16 U/L <38 [facility] Lipid Profileon 01-30-2025 CHOL:HDL 2.79 Normal [facility] Comment on above: Performed By: #### L 100.0100, L501.9940, L500.4050, L500.4100 #### [facility] [address] [place], [address] Cholesterol [Mass/Vol] 133 mg/dL Normal <=200 [facility] Comment on above: Result Comment: Chol esterol level, Desirable <200 mg/dL Borderline high cholesterol 200-239 mg/dL High cholesterol >=240 mg/dL Recommendations of the NCEP Adult Treatment Panel for the following risk-cutoff thresholds for the [place] population. Performed By: #### L 100.0100, L501.9940, L500.4050, L500.4100 #### [facility] [address] [place], [address] Cholesterol in HDL [Mass/Vol] 48 mg/dL Normal [facility] Comment on above: Result Comment: Lisa onal Cholesterol Education Program (NCEP) guidelines: <40 mg/dL: Low HDL-cholesterol (major risk factor for CHD) >= 60 mg/dL: High HDL-cholesterol (negative risk factor for CHD) HDL-cholesterol is affected by a number of factors, e.g. smoking, exercise, hormones, sex and age. Performed By: #### L 100.0100, L501.9940, L500.4050, L500.4100 #### [facility] [address] [place], [address] Cholesterol in LDL [Mass/Vol] 67 mg/dL Normal [facility] Comment on above: Result Comment: Bord qmkiho=220-697 mg/dL Higher Embn=072 mg/dL or greater Performed By: #### L 100.0100, L501.9940, L500.4050, L500.4100 #### [facility] [address] [place], [address] Cholesterol in VLDL [Mass/Vol] 18 mg/dL Normal 5-40 [facility] Comment on above: Performed By: #### L 100.0100, L501.9940, L500.4050, L500.4100 #### [facility] [address] [place], [address] Triglyceride [Mass/Vol] 91 mg/dL Normal [facility] Comment on above: Result Comment: The drugs N-Acetylcysteine and Metamizole may falsely depress this assay. Normal range: <150 mg/dL Borderline High: 150-199 mg/dL High: 200-499 mg/dL Very High: >500 mg/dL Performed By: #### L 100.0100, L501.9940, L500.4050, L500.4100 #### [facility] [address] [place], [place], [address] MCV (mean corpuscular volume ) determinationOrdered By: Aisha Saavedra on 01-30-2025 MCV (RBC) [Entitic vol] 94.3 fL High 80-94 [facility] Mean corpuscular hemoglobin (MCH) determinationOrdered By: Aisha Saavedra on 01-30-2025 MCH (RBC) [Entitic mass] 31.5 pg 27.0-32.0 [facility] Mean corpuscular hemoglobin concentration (MCHC) determinationOrdered By: Aisha Saavedra on 01-30-2025 MCHC (RBC) [Mass/Vol] 33.4 g/dL 32-36 [facility] Mean platelet volume determi nationOrdered By: Aisha Saavedra on 01-30-2025 Platelet mean volume (Bld) [Entitic vol] 11.3 fL 6.2-12.0 [facility] Monocyte percentageOrdered B y: Aisha Saavedra on 01-30-2025 Monocytes/100 WBC (Bld) 10.5 % High 0-10 [facility] Neutrophil percentageOrdered By: Aisha Saavedra on 01-30-2025 Neutrophils/100 WBC (Bld) 59.7 % 47-70 [facility] Nucleated red blood cell per centageOrdered By: Aisha Saavedra on 01-30-2025 Nucleated RBC/100 WBC (Bld) [Ratio] 0 % 0-5 [facility] PSA,Total- Diagnosticon 01-13 PSA, DIAGNOSTIC 0.38 ng/mL Normal 0.00-4.00 [facility] Comment on above: Result Comment: This test [...] #### L 100.0100, L501.9940, L500.4050, L500.4100 #### [facility] [address] [place], [address] Platelet countOrdered By: Joe Saavedra on 01-30-2025 Platelets (Bld) [#/Vol] 251 10*3/uL 150-450 [facility] Potassium measurement (mass/ volume)Ordered By: Aisha Saavedra on 01-30-2025 Potassium (Unsp spec) [Mass/Vol] 4.5 mmol/L 3.3-5.1 [facility] RBC Auto (Bld) [#/Vol]Ordere d By: Aisha Saavedra on 01-30-2025 RBC (Bld) [#/Vol] 5.05 10*6/uL 4.6-6.2 [facility] Screening total cholesterol/ high density lipoprotein (HDL) cholesterol ratioOrdered By: Aisha Saavedra on 01-30-2025 Cholesterol.total/Choles terol in HDL [Mass ratio] 2.79 {ratio} [facility] Serum creatinine measurement (mass/volume)Ordered By: Aisha Saavedra on 01-30-2025 Creatinine [Mass/Vol] 0.81 mg/dL 0.70-1.20 [facility] Serum globulin measurementOr dered By: Aisha Saavedra on 01-30-2025 Globulin (S) [Mass/Vol] 2.8 g/dL 2.2-4.2 [facility] Serum glucose measurement (m ass/volume)Ordered By: Aisha Saavedra on 01-30-2025 Glucose [Mass/Vol] 97 mg/dL 70-99 [facility] Serum or plasma alanine mccormick otransferase (ALT) measurementOrdered By: Aisha Saavedra on 01-30-2025 ALT [Catalytic activity/Vol] 13 U/L <47 [facility] Serum or plasma albumin marlee urement (mass/volume)Ordered By: Aisha Saavedra on 01-30-2025 Albumin [Mass/Vol] 4.2 g/dL 3.4-4.8 [facility] Serum or plasma albumin/glob ulin mass ratioOrdered By: Aisha Saaevdra on 01-30-2025 Albumin/Globulin [Mass ratio] 1.5 {ratio} 0.9-2.4 [facility] Serum or plasma alkaline amber sphatase measurementOrdered By: Aisha Saavedra on 01-30-2025 ALP [Catalytic activity/Vol] 95 U/L 40-129 [facility] Serum or plasma calcium marlee urement (mass/volume)Ordered By: Aisha Saavedra on 01-30-2025 Calcium [Mass/Vol] 9.7 mg/dL 7.6-11.0 [facility] Serum or plasma cholesterol in HDL measurement (mass/volume)Ordered By: Aisha Saavedra on 01-30-2025 Cholesterol in HDL [Mass/Vol] 48 mg/dL >40 [facility] Comment on above: National Cholesterol Education Program (NCEP) guidelines:<40 mg/dL: Low HDL-cholesterol (major risk factor for CHD)>= 60 mg/dL: High HDL-cholesterol (negative risk factor for CHD)HDL-cholesterol is affected by a number of factors, e.g. smoking, exercise, hormones, sex and age. Serum or plasma cholesterol measurement (mass/volume)Ordered By: Aisha Saavedra on 01-30-2025 Cholesterol [Mass/Vol] 133 mg/dL <201 [facility] Comment on above: Cholesterol level, D esirable <200 mg/dLBorderline high cholesterol 200-239 mg/dLHigh cholesterol >=240 mg/dLRecommendations of the NCEP Adult Treatment Panel for the following risk-cutoff thresholds for the [place] population. Serum or plasma urea nitroge n measurement (mass/volume)Ordered By: Aisha Saavedra on 01-30-2025 Urea nitrogen [Mass/Vol] 17 mg/dL 4-19 [facility] Sodium levelOrdered By: Daniel Saavedra on 01-30-2025 Sodium [Moles/Vol] 140 mmol/L 133-145 [facility] Total proteinOrdered By: Darwin Saavedra on 01-30-2025 Protein [Mass/Vol] 7.0 g/dL 5.9-8.4 [facility] Triglycerides measurementOrd ered By: Aisha Saavedra on 01-30-2025 Triglyceride [Mass/Vol] 91 mg/dL <199 [facility] Comment on above: The drugs N-Acetylcy steine and Metamizole may falsely depress this assay. Normal range: <150 mg/dLBorderline High: 150-199 mg/dLHigh: 200-499 mg/dLVery High: >500 mg/dL White blood cell (WBC) count Ordered By: Aisha Saavedra on 01-30-2025 WBC (Bld) [#/Vol] 8.2 10*3/uL 4.4-11.0 [facility] Internal Medicine Office Vis itocarmen 01-29-2025 Internal Medicine Office Visit [facility] [place] [address] [place] [address] OFFICE VISIT Date of Service: 01/30/25 MR#: [id number] Acct: [id number] Name: DREA MAX Rep #: [id number] : 1955 Provider: Dr. Aisha galdamez MD Age/Sex: 69/M Location: [facility] [place] [facility] Status: Signed Intake Vital Signs 08/01/24 09:55 [...] placement he is supposed to see a microfilm camera operator every 2 years and it has been 3 years. [facility] Medical History Skin cancer Heart disease Hearing [...] occupational status: retired current occupation: worked in [employer] Smoking Status: Former smoker quit date: 08/15/15 pack-years: 40 Electronic Cigarette Use: not used alcohol intake: current alcohol intake frequency: a few times a month Alcohol type: hard liquor substance use type: marijuana what type of physical activity do you participate in: walking seatbelt use: always do you feel safe at home: Yes Questionnaire H-9 BMS Over the last 2 weeks, how [...] by Drs. Deng Mai, Kareen Perez, [place] Taylro and colleagues, with an educational rolando from [employer]. ESTELITA-7 BMS ESTELITA-7 Feeling nervous, anxious, or [...] and colleagues, with an educational rolando from [employer]. HPI HPI Chief Complaint: 6 M FU Details: DREA MAX, is a 69 M who (more content not included)... Normal [facility] Internal Medicine Office Vis iton 07-31-2024 Internal Medicine Office Visit [facility] [address] [place] [address] [place] [address] OFFICE VISIT Date of Service: 08/01/24 MR#: [id number] Acct: [id number] Name: DREA MAX Rep #: [id number] : 1955 Provider: Dr. Aisha galdamez MD Age/Sex: 68/M Location: [facility] [place] [facility] Status: Signed with Addenda ADDENDUM by Dr. [...] 98 Intake Visit Reasons: 6 M FU Phlebotomy Tech Required: No Is patient in pain?: No [...] has become worse and worse. Denies dizziness. [facility] Medical History Skin cancer Heart disease Hearing [...] occupational status: retired current occupation: worked in [employer] Smoking Status: Former smoker quit date: 08/15/15 [...] The pa (more content not included)... Normal [facility] 36on 02-01-2024 36 We want to inform you that your patient's blood pressure was noted to be elevated in our office today. We thank you for trusting us with your patient's health. Last BP: BP Readings from Last 2 Encounters: 02/01/24 (!) 140/96 Normal [facility] Office Visiton 02-01-2024 Follow-up visit [id number] Drea Max 1955 M Date Provider Department Center 02/01/2024 [id number] [facility]YLIE [facility] None No family history on file Level of Service:56135 [place] OFFICE/OUTPATIENT NEW LOW MDM 30 MINUTES Reason for Visit and Comments: Erectile Dysfunction [469979] - Patient states ed started 4 months ago, 3 instances of dry orgasms, denies any other issues at this time [facility] Progress Noteon 02-01-2024 Progress Note Cristopher Wylie [...] erectile dysfunction and possible anorgasmia Moved to [place] in April. 10 years ago and was [...] Cristopher Wylie MD 02/01/24 1:37 PM Normal [facility] Absolute lymphocyte countOrd ered By: Aisha Saavedra on 10-13-2023 Lymphocytes Auto (Unsp spec) [#/Vol] 2.93 10*3/uL 0.83-4.51 [facility] Automated lymphocyte count a s percentage of total leukocytesOrdered By: Aisha Saavedra on 10-13-2023 Lymphocytes/100 WBC Auto (Unsp spec) 27.3 % 19-41 [facility] Basophil percentageOrdered B y: Aisha Saavedra on 10-13-2023 Basophils/100 WBC (Bld) 0.6 % 0-1 [facility] Bilirubin [Mass/Vol] 0.70 mg/dL 0.20-1.00 [facility] Comment on above: For patients on eltr ombopag therapy, use of Dimension [place] TBIL is not recommended. Chloride [Moles/Vol] 110 mmol/L 98-107 [facility] Cholesterol [Mass/Vol] 139 mg/dL <200 [facility] Comment on above: <200 mg/dL Desirable 200-240 mg/dL Borderline >240 mg/dL High Risk Eosinophils/100 WBC (Bld) 2.0 % 0-5 [facility] Glucose [Mass/Vol] 93 mg/dL 74-106 [facility] Hemoglobin (Bld) [Mass/Vol] 16.0 g/dL 13.0-16.5 [facility] Monocytes/100 WBC (Bld) 8.2 % 0-10 [facility] Neutrophils (Bld) [#/Vol] 6.6 10*3/uL 2.0-7.7 [facility] Neutrophils/100 WBC (Bld) 61.5 % 47-70 [facility] Potassium [Moles/Vol] 4.5 mmol/L 3.5-5.1 [facility] Protein [Mass/Vol] 7.4 g/dL 6.4-8.2 [facility] Sodium [Moles/Vol] 142 mmol/L 136-145 [facility] Triglyceride [Mass/Vol] 138 mg/dL <199 [facility] Comment on above: The drugs N-Acetylcy steine and Metamizole may falsely depress this assay.Serum Triglycerides Reference Interval Normal <150 mg/dL Borderline high 150 - 199 mg/dL High 200 - 499 mg/dL Very High > or = 500 mg/dL WBC (Bld) [#/Vol] 10.7 10*3/uL 4.4-11.0 [facility] Determination of erythrocyte mean corpuscular volume (MCV)Ordered By: Aisha Saavedra on 10-13-2023 MCV (RBC) [Entitic vol] 94.5 fL 80-94 [facility] Erythrocyte distribution wid th ratioOrdered By: Aisha Saavedra on 10-13-2023 Erythrocyte distribution width (RBC) [Ratio] 13.2 % 11.6-14.6 [facility] Erythrocyte distribution wid th standard deviationOrdered By: Aisha Saavedra on 10-13-2023 Erythrocyte distribution width (RBC) [Entitic vol] 46.0 fL 35.1-43.9 [facility] Hematocrit Auto (Bld) [Volum e fraction]Ordered By: Aisha Saavedra on 10-13-2023 Hematocrit (Bld) [Volume fraction] 49.8 % 40-54 [facility] Immature granulocytes/100 WB C Auto (Bld)Ordered By: Aisha Saavedra on 10-13-2023 Immature granulocytes/100 WBC (Bld) 0.400 % 0.0-0.9 [facility] Comment on above: IG% - Immature Granu locytes (promyelocytes, myelocytes and metamyelocytes) > 1% indicates that a LEFT SHIFT is Present. Laboratory - Chemistry and C hemistry - challengeOrdered By: Aisha Saavedra on 10-13-2023 Albumin/Globulin [Mass ratio] 1.1 {ratio} 0.9-2.4 [facility] ALP [Catalytic activity/Vol] 84 U/L 45-117 [facility] ALT [Catalytic activity/Vol] 26 U/L 16-61 [facility] Cholesterol in HDL [Mass/Vol] 52 mg/dL >40 [facility] Comment on above: The drugs N-Acetylcy steine and Metamizole may falsely depress this assay. Reference Range HDL <40 mg/dL Low HDL Cholesterol HDL >or= 60 mg/dL High HDL Cholesterol Cholesterol in LDL [Mass/Vol] 59 mg/dL 0-130 [facility] CO2 [Moles/Vol] 29.0 mmol/L 21.0-32.0 [facility] Globulin (S) [Mass/Vol] 3.5 g/dL 2.2-4.2 [facility] Urea nitrogen/Creatinine [Mass ratio] 20.2 mg/mg 10-20 [facility] Laboratory - Hematology and Cell countsOrdered By: Aisha Saavedra on 10-13-2023 MCH (RBC) [Entitic mass] 30.4 pg 27.0-32.0 [facility] MCHC (RBC) [Mass/Vol] 32.1 g/dL 32-36 [facility] Nucleated RBC/100 WBC (Bld) [Ratio] 0 % 0-5 [facility] Platelet mean volume (Bld) [Entitic vol] 11.2 fL 6.2-12.0 [facility] Platelets (Bld) [#/Vol] 303 10*3/uL 150-450 [facility] No Panel InformationOrdered By: Aisha Saavedra on 10-13-2023 Estimated GFR (MDRD) Amer 125 mL/min >60 [facility] Comment on above: GFR Calc Estimated GFR (MDRD) Non-Af Amer 103 mL/min >60 [facility] Comment on above: Non- GFR Calc Prostate Specific Antigen Screen 0.75 ng/mL 0.00-4.00 [facility] Comment on above: This test was perfor med using the TPSA assay method for the[employer]@ chemistry system. Values obtained with differentassay methods cannot be used interchangably.When changing PSA assays in the course of monitoring apatient, additional sequential testing should be carriedout to confirm baseline values. VLDL Cholesterol 28 mg/dL 5-40 [facility] RBC Auto (Bld) [#/Vol]Ordere d By: Aisha Saavedra on 10-13-2023 RBC (Bld) [#/Vol] 5.27 10*6/uL 4.6-6.2 [facility] Serum or plasma calcium marlee urement (mass/volume)Ordered By: Aisha Saavedra on 10-13-2023 Calcium [Mass/Vol] 9.3 mg/dL 8.5-10.1 [facility] Serum or plasma creatinine m easurement (mass/volume)Ordered By: Aisha Saavedra on 10-13-2023 Creatinine [Mass/Vol] 0.79 mg/dL 0.70-1.30 [facility] Comment on above: The validity of the calculated GFR & GFRAA in patients over 70 years has not been determined. Clinical correlation is essential. Serum or plasma thyroid stim ulating hormone (TSH) measurement (units/volume)Ordered By: Aisha Saavedra on 10-13-2023 TSH Qn 3.39 uIU/mL 0.358-3.74 [facility] Serum or plasma urea nitroge n measurement (mass/volume)Ordered By: Aisha Saavedra on 10-13-2023 Urea nitrogen [Mass/Vol] 16 mg/dL 7-18 [facility] Thin prep Papanicolaou smear with manual screeningOrdered By: Aisha Saavedra on 10-13-2023 Thin prep Papanicolaou smear with manual screening 3.9 g/dL 3.2-5.0 [facility] Thin prep Papanicolaou smear with manual screening 14 U/L 15-37 [facility] Thin prep Papanicolaou smear with manual screening 3 5-15 [facility] Vital Signs Date Time Vital Sign Value Performing Clinician Faci lity 03-13-2025 10:47-0400 Body height 182.[address] Aisha Saavedra MD Work Phone: [facility] 03-13-2025 10:47-0400 Body mass index (BMI) [Ratio] 25.2 kg/m2 Dr. Aisha Saavedra MD Work Phone: [facility] 03-13-2025 10:47-0400 Body weight 84.[address] Aisha Saavedra MD Work Phone: [facility] 03-13-2025 10:47-0400 Diastolic blood pressure 77 mm[Hg] Dr. Aisha Saavedra MD Work Phone: [facility] 03-13-2025 10:47-0400 Heart rate 64 /min Dr. Aisha Saavedra MD Work Phone: [facility] 03-13-2025 10:47-0400 Respiratory rate 16 /min Dr. Aisha Saavedra MD Work Phone: [facility] 03-13-2025 10:47-0400 Systolic blood pressure 121 mm[Hg] Dr. Aisha Saavedra MD Work Phone: [facility] 03-09-2025 07:40-0400 Body temperature 98.6 [degF] Dr. Aisha Saavedra MD Work Phone: [facility] 03-09-2025 07:40-0400 Diastolic blood pressure 83 mm[Hg] Dr. Aisha Saavedra MD Work Phone: [facility] 03-09-2025 07:40-0400 Heart rate 64 /min Dr. Aisha Saavedra MD Work Phone: [facility] 03-09-2025 07:40-0400 Respiratory rate 18 /min Dr. Aisha Saavedra MD Work Phone: [facility] 03-09-2025 07:40-0400 SaO2% (BldA) [Mass fraction] 96 % Dr. Aisha Saavedra MD Work Phone: [facility] 03-09-2025 07:40-0400 Systolic blood pressure 120 mm[Hg] Dr. Aisha Saavedra MD Work Phone: [facility] 03-09-2025 05:59-0400 Body height 182.[address] Aisha Saavedra MD Work Phone: [facility] 03-09-2025 05:59-0400 Body mass index (BMI) [Ratio] 25.2 kg/m2 Dr. Aisha Saavedra MD Work Phone: [facility] 03-09-2025 05:59-0400 Body weight 84.[address] Aisha Saavedra MD Work Phone: [facility] 01-30-2025 09:07-0400 Body height 182.[address] Aisha Saavedra MD Work Phone: [facility] 01-30-2025 09:07-0400 Body mass index (BMI) [Ratio] 25.2 kg/m2 Dr. Aisha Saavedra MD Work Phone: [facility] 01-30-2025 09:07-0400 Body temperature 97.4 [degF] Dr. Aisha Saavedra MD Work Phone: [facility] 01-30-2025 09:07-0400 Body weight 84.[address] Aisha Saavedra MD Work Phone: [facility] 01-30-2025 09:07-0400 Diastolic blood pressure 84 mm[Hg] Dr. Aisha Saavedra MD Work Phone: [facility] 01-30-2025 09:07-0400 Heart rate 69 /min Dr. Aisha Saavedra MD Work Phone: [facility] 01-30-2025 09:07-0400 Respiratory rate 18 /min Dr. Aisha Saavedra MD Work Phone: [facility] 01-30-2025 09:07-0400 SaO2% (BldA) [Mass fraction] 93 % Dr. Aisha Saavedra MD Work Phone: [facility] 01-30-2025 09:07-0400 Systolic blood pressure 136 mm[Hg] Dr. Aisha Saavedra MD Work Phone: [facility] 02-01-2024 13:05-0400 Body height 182.9 cm Cristopher Wylie MD Work Phone: [facility] 02-01-2024 13:05-0400 Body mass index (BMI) [Ratio] 23.6 kg/m2 Cristopher Wylie MD Work Phone: [facility] 02-01-2024 13:05-0400 Body weight 78.93 kg Cristopher Wylie MD Work Phone: [facility] 02-01-2024 13:05-0400 Diastolic blood pressure 96 mm[Hg] Cristopher Wylie MD Work Phone: [facility] 02-01-2024 13:05-0400 Heart rate 76 /min Cristopher Wylie MD Work Phone: [facility] 02-01-2024 13:05-0400 Systolic blood pressure 140 mm[Hg] Cristopher Wylie MD Work Phone: [facility] 10-13-2023 14:03-0500 Body height 182.88 cm PA Darwin Rockwell PA Work Phone: [facility] 10-13-2023 14:03-0500 Body mass index (BMI) [Ratio] 25.4 kg/m2 PA Darwin Rockwell PA Work Phone: [facility] 10-13-2023 14:03-0500 Body temperature 97.2 [degF] PA Darwin Rockwell PA Work Phone: [facility] 10-13-2023 14:03-0500 Body weight 85.04 kg PA Darwin Rockwell PA Work Phone: [facility] 10-13-2023 14:03-0500 Diastolic blood pressure 80 mm[Hg] PA Darwin Rockwell PA Work Phone: [facility] 10-13-2023 14:03-0500 Heart rate 72 /min PA Darwin Rockwell PA Work Phone: [facility] 10-13-2023 14:03-0500 Respiratory rate 16 /min PA Darwin Rockwell PA Work Phone: [facility] 10-13-2023 14:03-0500 SaO2% (BldA) [Mass fraction] 98 % PA Darwin Rockwell PA Work Phone: [facility] 10-13-2023 14:03-0500 Systolic blood pressure 132 mm[Hg] PA Darwin Rockwell PA Work Phone: [facility] 08-31-2023 12:57-0500 Body mass index (BMI) [Ratio] 24.4 kg/m2 PA Darwin Rockwell PA Work Phone: [facility] 08-31-2023 12:57-0500 Body weight 81.64 kg PA Darwin Rockwell PA Work Phone: [facility] 08-29-2023 08:19-0500 Body mass index (BMI) [Ratio] 24.7 kg/m2 PA Darwin Rockwell PA Work Phone: [facility] 08-29-2023 08:19-0500 Body temperature 98 [degF] PA Darwin Rockwell PA Work Phone: [facility] 08-29-2023 08:19-0500 Body weight 82.55 kg PA Darwin Rockwell PA Work Phone: [facility] 08-29-2023 08:19-0500 Diastolic blood pressure 82 mm[Hg] PA Darwin Rockwell PA Work Phone: [facility] 08-29-2023 08:19-0500 Heart rate 75 /min PA Darwin Rockwell PA Work Phone: [facility] 08-29-2023 08:19-0500 Respiratory rate 12 /min PA Darwin Rockwell PA Work Phone: [facility] 08-29-2023 08:19-0500 SaO2% (BldA) [Mass fraction] 97 % PA Darwin Rockwell PA Work Phone: [facility] 08-29-2023 08:19-0500 Systolic blood pressure 126 mm[Hg] PA Darwin Rockwell PA Work Phone: [facility] Encounters Encounter Date Encounter Type Care Provider Facility Start: 04-08-2025 ambulatory Sanjay Arceo Facility:[facility] Start: 03-13-2025 End: 03-13-[address] Aisha Saavedra MD Work Phone: -Laboratory Start: 03-13-2025 End: 03-13-[address] Sanjay Arceo MD -Laboratory Work Phone: Start: 03-13-2025 End: 03-13-[address] Sanjay Arceo MD -[facility] Work Phone: Start: 03-13-2025 End: 03-13-[address] Aisha Saavedra MD Work Phone: [facility] Start: 03-13-2025 End: 03-13-2025 ambulatory Aisha Saavedra Facility:[facility] Start: 03-09-2025 End: 03-09-2025 Emergency department patient visit Dr. Aisha Saavedra MD Work Phone: -Emergency Department Work Phone: Start: 02-21-2025 End: 02-21-[address] Aisha Saavedra MD Work Phone: [facility] Start: 02-21-2025 End: 02-21-[address] Aisha Saavedra MD [facility] Work Phone: Start: 02-21-2025 End: 02-21-2025 ambulatory Aisha Saavedra Facility:[facility] Start: 01-30-2025 End: 01-30-[address] Aisha Saavedra MD Work Phone: [facility] Work Phone: Start: 01-30-2025 End: 01-30-[address] Aisha Saavedra MD -Laboratory [facility] Start: 01-30-2025 End: 01-30-[address] Aisha Saavedra MD -[facility] Work Phone: Start: 01-30-2025 End: 01-30-[address] Aisha Saavedra MD Work Phone: 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 Aisha Saavedra Work Phone: [facility] Work Phone: Start: 11-09-2023 End: 11-09-[address] [facility] Start: 11-01-[address] Mukesh Saavedra Work Phone: [facility] Work Phone: Start: 10-25-2023 Non-patient / Non-visit Dr. Sparks Work Phone: [facility] Start: 10-25-2023 End: 10-25-[address] Aisha Saavedra Work Phone: [facility] Work Phone: Start: 10-25-2023 End: 10-25-[address] Aisha Saavedra Work Phone: [facility] Work Phone: Start: 10-19-[address] Mukesh Saavedra Work Phone: [facility] Work Phone: Start: 10-13-2023 End: 10-13-2023 ambulatory JOSE GARCIA Work Phone: [facility] Work Phone: Start: 10-13-2023 End: 10-13-2023 Patient encounter procedure JOSE GARCIA Work Phone: [facility] Start: 10-13-2023 End: 10-13-2023 Patient encounter procedure JOSE GARCIA Work Phone: [facility] Work Phone: Start: 09-07-2023 Registered Recurring JOSE GARCIA Work Phone: [facility] Work Phone: Start: 08-31-2023 End: 08-31-2023 Patient encounter procedure JOSE GARCIA Work Phone: [facility] Work Phone: Start: 08-29-2023 End: 08-29-2023 Patient encounter procedure JOSE GARCIA Work Phone: [facility] Work Phone: Procedures Date [...] Start: 03-13-2025 Evaluation of diagnostic study results [facility] Start: 03-09-2025 End: 03-09-2025 [facility] Start: 01-30-2025 Patient referral [facility] Work Phone: Start: 01-30-2025 CBC W Auto Differential panel - Blood [facility] Start: 01-30-2025 Comprehensive metabolic 2000 panel - Serum or Plasma [facility] Start: 01-30-2025 Lipid 1996 panel - Serum or Plasma [facility] Start: 01-30-2025 Prostate specific antigen measurement [facility] Start: 10-12-2024 Pneumococcal Vaccine: 65+ Years (2 of 2 - PCV) Pneumococcal Vaccine: 65+ Years (2 of 2 - PCV) [facility] Start: 11-25-2023 COVID-19 Vaccine ( season) COVID-19 Vaccine ( season) [facility] Start: 08-31-2023 Patient referral [facility] Work Phone: Start: 08-29-2023 Patient referral [facility] Work Phone: Start: 11-16-2005 Zoster Vaccines (1 of 2) Zoster Vaccines (1 of 2) [facility] Start: 11-16-1974 DTaP/Tdap/Td Vaccines (1 - Tdap) DTaP/Tdap/Td Vaccines (1 - Tdap) [facility] Start: 11-16-1973 Hepatitis C screening Hepatitis C Screening [facility] Start: 1967 Depression Screening Depression Screening [facility] Start: 1955 Lipid panel Lipid Panel [facility] Start: 1955 Medicare Annual Wellness (AWV) Medicare Annual Wellness (AWV) [facility] Start: 1955 Screening for malignant neoplasm of colon [facility] Abdominal aortic ane urysm screening [facility] Alanine aminotransfe rase [Enzymatic activity/volume] in Serum or Plasma [facility] Albumin [Mass/volume ] in Serum or Plasma [facility] Alkaline phosphatase [Enzymatic activity/volume] in Serum or Plasma [facility] Anion gap in Serum o r Plasma [facility] Bilirubin, total measurement [facility] BUN/Creatinine ratio [facility] Calcium [Mass/volume ] in Serum or Plasma [facility] Carbon dioxide, tota l [Moles/volume] in Central venous blood [facility] Cholesterol [Mass/vo lume] in Serum or Plasma [facility] Cholesterol in HDL [Mass/volume] in Serum or Plasma [facility] Creatinine [Mass/vol ume] in Serum or Plasma [facility] Erythrocyte mean corpuscular volume determination [facility] Glucose [Mass/volume ] in Serum or Plasma [facility] Hematocrit [Volume Fraction] of Blood [facility] Hemoglobin [Mass/vol ume] in Blood [facility] Leukocytes [#/volume ] in Blood [facility] Low density lipoprot ein cholesterol measurement [facility] Mean corpuscular hem oglobin concentration determination [facility] Mean corpuscular hem oglobin determination [facility] Measurement of renal function [facility] MRA Head vessels WO and W contrast IV [facility] Neutrophil count [facility] Neutrophil percent differential count [facility] Patient Education ED Palpitation s ED Pneumonia (Adult) [facility] Work Phone: Patient referral [facility] Work Phone: Platelets [#/volume] in Blood [facility] Potassium measurement [facility] Radionuclide imaging of perfusion of myocardium under exercise stress [facility] Red blood cell count [facility] Red cell distributio n width determination [facility] Serum chloride measurement [facility] Serum testosterone measurement [facility] Sodium measurement [facility] Testosterone measurement [facility] Total cholesterol:HD L ratio measurement [facility] Total protein measurement [facility] Triglycerides measurement [facility] Urea nitrogen [Mass/ volume] in Serum or Plasma [facility] US Heart [facility] VLDL cholesterol measurement [facility] [place] Immunization Date Immunization Notes Care Provider Glenis stahl 01-30-2025 pneumococcal conjuga te vaccine, [address] Aisha Saavedra MD Work Phone: [facility] 10-13-2023 pneumococcal polysaccharide vaccine, 23 valent JOSE GARCIA Work Phone: [facility] 07-26-2023 Influenza, injectabl e, Madin Tigist Canine Kidney, preservative free, quadrivalent JOSE GARCIA Work Phone: [facility] 07-26-2023 Pfizer Covid-19 (Comirnaty) JOSE GARCIA Work Phone: [facility] 07-26-2023 RSV Adult Recombinan t (Arexvy) JOSE GARCIA Work Phone: [facility] Payers Date Payer Category Payer Self-pay 2023 Unknown AARP AARP [id number] 2023-Present [address] [place] [address] Supplement [id number] 2023 Unknown [id number] 2022 Medicare MEDICARE MEDICAR E PART A AND B [id number] 2022-Present [address] [place] [address] Medicare [id number] 2022 Medicare [id number] Unknown [id number] Unknown [id number] Unknown [id number] Unknown [id number] Unknown [id number] Unknown [id number] Unknown [id number] Unknown [id number] Social History Date Type Detail Facility Start: 10-13-2023 End: 10-13-2023 Tobacco smoking status NHIS Unknown if ever smoked [facility] Start: 1955 Sex Assigned At Male [facility] Start: 1955 Sex assigned at Not on file [facility] Gender identity Not on file [facility] Start: 01-30-2025 End: 03-09-2025 Tobacco smoking status NHIS Ex-smoker (finding) [facility] Mental Status Date Assessment Result Facility 03-09-2025 Cognitive function Voice/Name [facility] Work Phone: Clinical Notes 02-01-2024 to 03-09-2025 Note Date & Type Note Facility 03-09-2025 Discharge summary [facility] 03-09-2025 Radiology Diagnostic study note [facility] Imaging Services [address], [place] [address] Chest PA and Lateral MR#: [id number] Acct: [id number] Name: DREA MAX Rep #: [id number] : 1955 M 69 From: Aayush Serra MD PCP: Dr. Aisha Saavedra MD Status: REG ER Study:Chest PA and Lateral Date of Exam: 03/09/25 Exam# [id number] Ordering Dr: Arabella Robbins DO PROCEDURE: CHEST [...] No pleural effusion or pneumothorax. Reading Location: [facility] CC: Dr. Aisha Saavedra MD; Rich Robbins DO ~ Programming Internship: Signed [facility] 01-30-2025 Evaluation note Diagnosis Onset Date Resolution BPH (benign prostatic hyperplasia) noneactive January 30, 2025 8:56am Immunization due noneactive January 8:56am Elevated blood pressure reading noneactive January 30, 2025 8:56am CAD (coronary artery disease) noneactive January 30, 2025 8:56am Pulsatile tinnitus noneactive January 132024 8:56am Mixed hyperlipidemia noneactive January 30, 2025 8:56am Impaired ejaculation noneactive January 30, 2025 8:56am Anxiety and depression noneactive [facility] 2024 8:56am [facility] Work Phone: 1(791) 232-608206-18-2025 Evaluation note* Diagnosis Onset Date Resolution Status Admit Date BPH (benign prostatic hyperplasia) noneactive January 30, 2025 8:56am Immunization due noneactive January 8:56am Elevated blood pressure reading none active January 30, 2025 8:56am CAD (coronary artery disease) noneac tive January 30, 2025 8:56am Pulsatile tinnitus noneactive January 132024 8:56am Mixed hyperlipidemia noneactive January 30, 2025 8:56am Impaired ejaculation noneactive January 30, 2025 8:56am Anxiety and depression noneactive [facility] 2024 8:56am Paroxysmal atrial fibrillation acute March 13, 2025 10:43am CAD (coronary artery disease) inacti ve March 13, 2025 10:43am [facility] Work Phone: 1(540) 659-156206-19-2024 History of Present illness Narrative* Damon Darby MD - 02/01/2024 1:00 PM EDT Images from the original note were not included. Cristopher Wylie MD 02/01/2024 at 1:37 PM UROLOGY INITIAL OFFICE VISIT PATIENT NAME: Drea Max DATE OF : 1955 TODAY'S DATE: 02/01/2024 Chief Complaint: Chief Complaint Patient presents with Erectile Dysfunction Patient states ed started 4 months ago, 3 instances of dry orgasms, denies any other issues at thistime HISTORY OF PRESENT ILLNESS: Mr. Max is a 68 y.o. male who presents with erectile dysfunction and possible anorgasmia Moved to [place] in April. 10 years ago and was [...] difficulty urinating, dysuria, flank pain, frequency, hematuria, penilepain and urgency. Skin: Negative for color change. [...] MD 02/01/24 1:37 PM documented [facility] HealthDischarge summary Author Rich Robbins [facility] Note Date/Time March 09, 2025 7:23 am [facility] Medical Records Department [address] [place] [address] Emergency Department Summary 03/09/25 MR#: [id number] Acct: [id number] Name: DREA MAX Rep #:[id number] : [...] has an appointment set up with the microfilm camera operator Dr. Arceo next week. He states howeverthat [...] throughout the night he presents for evaluation [facility] Medical History Mixed hyperlipidemia Hx of myocardial infarction Atherosclerosis of coronary artery of [place] heart without angina pectoris Skin cancer Heart [...] occupational status: retired current occupation: worked in [employer] Smoking Status: Former smoker quit date: 08/15/15 [...] that he may have had a recent FL as well. Secondary to this an EKG [...] (Auto) 70.7 H Lymph % (Auto) 20.0 [place] % (Auto) 8.1 Eos % (Auto) 0.4 [...] No pleural effusion or pneumothorax. Reading Location: [facility] 2 view chest x-ray is interpreted [...] 1), then 250 mg for 4 days (days2- 5) cefdinir 300 mg capsule 300 mg PO [...] concerns or worsening of symptoms. Print Language: Emirati Disposition Disposition: Home, Self Care What to do if you have Problems For any increased pain, shortness of breath, bleeding, nausea or vomiting, chestpain, or any unexpected problems, contact your Primary Care Provider. Call [facility] ([phone]) or report to the closest Emergency Room. Call 911 if necessary. 03/09/25 [id number] <Electronically signed by Rich Robbins DO> Cosigner Signature (if applicable): CC: Dr. Aisha Saavedra MD ~ Signed [facility] Work Phone: Evaluation note* Diagnosis Onset Date Resolution Status Rupture of extensor tendon of finger resolved Rupture of extensor tendon of finger resolved Rupture of extensor tendon of finger resolved Skin change noneactive Immunization due noneactive Establishing care with new doctor, encounter for noneactive Erectile dysfunction noneact vania CAD (coronary artery disease) noneactive Mixed hyperlipidemia noneact vania Screening for AAA (abdominal aortic aneurysm) noneactive Inguinal hernia noneactive [facility] Work Phone: Evaluation note* Diagnosis 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 [facility] Diagnosis Onset Date Resolution Status Admit Date Elevated blood pressure reading none active January 30, 2025 8:56am CAD (coronary artery disease) noneac tive January 30, 2025 8:56am Pulsatile tinnitus noneactive January 132024 8:56am Mixed hyperlipidemia noneactive January 30, 2025 8:56am Impaired ejaculation noneactive January 30, 2025 8:56am Anxiety and depression noneactive 2024 8:56am Inguinal hernia noneactive January 8:56am [facility] Work Phone: Hospital Discharge instructionsAmbulatory Orders* Cardiology Location: None [facility] Work Phone: Hospital Discharge instructionsAdditional Instructions Please take the antibiotics as directed to help resolve the infection/pneumonia that was seen on your x-ray. Still follow-up with cardiology as you may need a Holter monitor to truly diagnose abnormal heart rhythms such as atrial fibrillation. Return to the ER should you have any further concerns or worsening of symptoms.[facility] Work Phone: Chief Complaint and Reason [...] TENDON OF FINGER. RX HERE LEFT HAND BRASSIERE CUP MOLD CUTTER. EST CARE - PPW SENT Reason for [...] DISLOCATI ON XRAY LEFT HAND LEFT HAND BRASSIERE CUP MOLD CUTTER. EST CARE - PPW SENT RUPTURE OF [...] DISLOCATI ON XRAY LEFT HAND LEFT HAND BRASSIERE CUP MOLD CUTTER. EST CARE - PPW SENT SCREENING RUPTURE [...] palpitations March 09, 2025 5:58 am CAD ([place]) March 13, 2025 10:4 3am Chief Complaint Admit Date 6 M FU January 30, 2025 8:56 am PULSATION TINNITUS February 21, 2025 12:2 6pm palpitations March 09, 2025 5:58 am CAD ([place]) March 13, 2025 10:4 3am NEEDS ORDER March 13, 2025 11:4 9am Reason for Visit Admit Date BPH (benign prostatic hyperplasia) January 30, 2025 8:56am Immunization due January 30, 2025 8:56 am Elevated blood pressure reading January 8:56am CAD (coronary artery disease) January 30, 2025 8:56am Pulsatile tinnitus January 30, 2025 8:56 am Mixed hyperlipidemia January 30, 2025 8:5 6am Impaired ejaculation January 30, 2025 8:5 6am Anxiety and depression January 30, 2025 8 :56am Paroxysmal atrial fibrillation February 10:43am CAD (coronary artery disease) March 13, 2025 10:43am Family History No Family History Records Found [...] Purpose Advance Directives No Advanced Directives Records Found Advance Directive Response Recorded Date/ Time Do you have a Healthcare Power of [employer] Work[employer]? No March 09, 2025 6:01am Additional Source [...] Dr. Ryan Paul MD Attending Provider Active Broadcast Program Director Relationship Specialty Start Date End Date Cristopher Wylie MD [address] [place] [address] Surgeon Urology 02/01/24 Team Status: Inactive Member [...] End: March 09, 2025 Dr. Rich Robbins DO Emergency Provider Active Start: March 09, [...] March 13, 2025 End: March 13, 2025 Team Status: Inactive Member Role/Relationship Status Dates Dr. Aisha Saavedra MD Primary Care Provider Active Start: March 09, 2025 End: March 09, 2025 Dr. Rich Robbins DO Attending Provider Active Start: March 09, 2025 End: March 09, 2025 Dr. Rich Robbins DO Emergency Provider Active Start: March 09, 2025 End: March 09, 2025 Team Status: Inactive Member Role/Relationship Status Dates Dr. Aisha Saavedra MD Primary Care Provider Active Start: March 13, 2025 End: March 13, 2025 Dr. Sanjay Arceo MD Attending Provider Active S tart: March 13, 2025 End: March 13, 2025 Dr. Sanjay Arceo MD Referring Provider Active S tart: March 13, 2025 [...] section and content) DATE CREATED AUTHOR 02/03/2024 [employer] [facility] DATE CREATED AUTHOR AUTHOR'S ORGANIZ ATION 04/07/2025 [facility] FOR RECORDS PERTAINING TO PATIENTS WHO ARE [...] BE BASED ON THE PRIMARY CLINICAL RECORDS. [email or web address] provides no warranty or guarantee of the accuracy or completeness of information in this document.
--- NOTE | 2025-04-08 17:26 | STRESSREP_ITS ---
Stress Test Report Exercise myocardial perfusion stress test. 69-year-old man with a history of coronary artery disease. Stress protocol: Resting EKG demonstrates sinus bradycardia rhythm with a rate of 52 bpm resting blood pressure is 132/74 mmHg. The patient exercised according to the regular Alberto protocol for a total duration of 5-1/2 attaining a maximum heart rate of 142 bpm which was 94% of maximum predicted heart rate; the maximum workload was 7 metabolic equivalents. At rest there were no ST or T wave changes noted to suggest ischemia and at peak exercise upsloping ST changes only were noted which did not meet the criteria for ischemia. No clinical angina was noted the test was terminated due to the target heart rate being achieved/fatigue. The peak blood pressure was 182/110 mmHg. Rate-pressure product was 25,600. Myocardial perfusion protocol. 13.6 mCi of technetium 99m sestamibi was injected at rest. The patient exercised according to regular Alberto protocol for total duration of 5-1/2 and at peak exercise 42.9 mCi of technetium 99m sestamibi was injected stress images were obtained stress and rest images were reconstructed in comparing the short axis vertical long and horizontal long axis. Gated images were also obtained. Perfusion SPECT analysis: Review of the stress images demonstrate normal uptake of tracer noted in all a reas of the myocardium. The resting images similarly demonstrate normal uptake of tracer noted in all areas of the myocardium. No areas of reversibility are noted to suggest ischemia no previous infarct was noted. Gated SPECT analysis: The gated ejection fraction is 63%. Conclusion: Normal exercise myocardial perfusion stress test at a moderate workload.
== END | disposition home or self-care (01) ==
LOC: CVS 06:08
PROVIDERS: PCP Internal Medicine; Referring Provider Internal Medicine Cardiovascular Disease; Visit Provider Internal Medicine Cardiovascular Disease
DX: I25.10 Atherosclerotic heart disease of native coronary artery without angina pectoris (principal)
CPT/HCPCS: 78452; 93017; 93306; A9500; A4216